=== PATIENT | female | born 1965 | race African-American/Black ===

== ENCOUNTER 2017-02-11 23:41 | Inpatient (IN) | payer MEDICARE, OTHER ==
--- NOTE | ~2017-02-11 | DS ---
Unit #: [id number] #: [id number] Patient: JOSE G JACOB [id number] [facility] [address] [place] [address] [id number] I MR#: [id number] NAME: JOSE G JACOB. ROOM: 14 Age: 51 Sex: F Admission Date: 02/11/2017 : 1965 Discharge Date: 02/20/2017 Attending Physician: Nithya Ang M.D. Primary Care Physician: Soren Mancera M.D. DISCHARGE SUMMARY IDENTIFYING DATA Ms. Jacob is a 51-year-old female, who was self-referred to the hospital. DISCHARGE DIAGNOSES Psychiatric: Bipolar disorder, most recent episode depressed, recurrent, moderate, without psychotic features. Medical: Diabetes mellitus, gastroparesis, hypertension, chronic obstructive pulmonary disease, history of deep venous thrombosis. Stressors: Moderate psychosocial stressors. HISTORY OF PRESENT ILLNESS Please see initial psychiatric evaluation for details. PAST PSYCHIATRIC HISTORY Please see initial psychiatric evaluation for details. PAST MEDICAL HISTORY Please see initial psychiatric evaluation for details. HOSPITAL COURSE The patient was admitted to adult inpatient psychiatric unit at [facility] and was oriented to the hospital environment. Routine p.r.n. medications were initiated, and she was started back on her home medications. Her medications were adjusted, and increased to 100 mg at bedtime and she was closely monitored. She was taking the medications regularly and was tolerating them fairly well, though she was having some medical complications, particularly related to breathing and was seen in medical consultation by the treatment team, followed by which, it was decided she will be sent out to the emergency room at [facility], where she did end up getting admitted and discharged from our care. DISCHARGE CONDITION Stable. PROGNOSIS Guarded. Dictated by... Nithya Ang M.D. Unit #: [id number] #: [id number] Patient: JOSE G JACOB IAA/modl TD: 03/17/2017 23:21 JOB #: [id number] DISCHARGE SUMMARY Page 1 of 1 X Afaq,Irfan A MD X DISCHARGE SUMMARY
--- NOTE | ~2017-02-11 | PN ---
Unit #: [id number] #: [id number] Patient: JOSE G VILLA [id number] [facility] [address] [place] [address] [id number] I MR#: [id number] NAME: JOSE G VILLA. ROOM: P114 Age: 51 Sex: F Admission Date: 02/11/2017 : 1965 Attending Physician: Nithya Ang M.D. Admitting Physician: Nithya Ang M.D. Primary Care Physician: Ella Alvarez PROGRESS NOTES DATE 02/15/2017 DISCUSSION The patient complains of some anxiety and poor sleep. I will increase her Seroquel dose to [address] Ang will reassume care of the patient on 02/16/2017. Dictated by... Darrian Leal M.D. CB/chilo TD: 02/16/2017 04:34 JOB #: [id number] [facility] PROGRESS NOTES Page 1 of 1 X Darrian Leal MD X PROGRESS NOTE
--- NOTE | ~2017-02-11 | HP ---
Unit #: [id number] #: [id number] Patient: JOSE G VILLA [id number] [place] [address] [id number] I MR#: [id number] NAME: JOSE G VILLA. ROOM: P114 Age: 51 Sex: F Admission Date: 02/11/2017 : 1965 Attending Physician: Nithya Ang M.D. Admitting Physician: Nithya Ang M.D. Primary Care Physician: Soren Mancera M.D. HISTORY AND PHYSICAL HISTORY OF PRESENT ILLNESS Jose G is a 51 year old admitted to [address] [place] [address] with depression and verbalizing wanting to hurt herself. She has had other admissions to this facility. PAST MEDICAL HISTORY 1. Obesity. 2. Diabetes mellitus. 3. Gastroparesis. 4. High blood pressure. 5. COPD. 6. History of recurrent DVTs. a. Status post IVC filter. b. Chronic anticoagulation. 7. History of sarcoidosis. 8. History of diastolic heart failure. PAST SURGICAL HISTORY 1. Appendectomy. 2. Hysterectomy. 3. Cholecystectomy. 4. Esophageal dilatation. 5. Gastric stimulator placed and removed. 6. IVC filter. ALLERGIES Metoclopramide, penicillin, Procardia, codeine. SOCIAL HISTORY She denies cigarettes, alcohol and illicit drug use. FAMILY HISTORY Medically noncontributory. REVIEW OF SYSTEMS CONSTITUTIONAL: No fever or chills. HEENT: Denies any sore throat, ear pain or runny nose. CARDIOVASCULAR: Denies chest pain, irregular heart rhythm or palpitations. CHEST: Denies shortness of breath or cough. No hemoptysis. GASTROINTESTINAL: Denies nausea, vomiting, diarrhea or chronic constipation. ENDOCRINE: Denies history of increased thirst or urination. No recent significant weight loss or gain. GENITOURINARY: Denies dysuria, frequency, or hematuria. Unit #: [id number] #: [id number] Patient: JOSE G VILLA SKIN: Denies any rashes. HEMATOLOGIC: Denies history of increased bleeding or bruising. MUSCULOSKELETAL: Denies any hot, swollen joints. No generalized muscle pain. NEUROLOGIC: Denies problems with vision or speech. No frequent, severe headaches. No numbness, tingling or weakness in any extremities. Denies loss of bladder or bowel control. CURRENT MEDICATIONS 1. Seroquel 100 mg q.h.s. 2. Lipitor 10 mg q.h.s. 3. Hydralazine 50 mg t.i.d. 4. Prozac 60 mg daily. 5. Emend 40 mg daily. 6. Aldactone 100 mg daily. 7. Prednisone 20 mg daily. 8. Normodyne 100 mg b.i.d. 9. Levemir 42 units b.i.d. 10. Neurontin 1200 mg t.i.d. 11. Ferrous gluconate 324 mg daily. 12. Colace 100 mg daily. 13. Depakote 500 mg b.i.d. 14. Bentyl 20 mg t.i.d. 15. Protonix 40 mg daily. 16. NovoLog 18 units with meals. 17. Proventil inhaler p.r.n. PHYSICAL EXAMINATION GENERAL: Alert, obese, in no apparent distress. VITAL SIGNS: Blood pressure 150/92, heart rate 80, respirations 16, temperature 98.6. WEIGHT: 220. HEIGHT: 5 feet 6 inches. SKIN: Warm and dry without rash or lesion. HEENT: Normocephalic. TMs not viewed. Oral and nasal passages clear. Conjunctivae clear. PERRLA. EOMs intact. NECK: Supple without lymphadenopathy or thyromegaly. HEART: Regular rate and rhythm without murmur. LUNGS: Clear. ABDOMEN: Soft, nontender. : Not done. EXTREMITIES: No evidence of cyanosis, clubbing or edema. Moves all without focal deficit. NEUROLOGICAL: Grossly within normal limits. Cranial Nerves: II: Visual abbott are intact. III, IV AND : Extraocular movements are intact. Pupils are equal, round and reactive to light. V: Facial sensation is grossly normal. VII: Facial movements and expression are normal. VIII: Auditory acuity grossly intact. IX, X: Uvula is midline. Phonation is normal. XI: Patient shrugs shoulders and turns head normally. XII: Tongue protrudes in the midline. Sensory and Motor Function: Sensory and motor sensation is grossly normal. Motor: moves all extremities well. Coordination: Gait is normal. Deep Tendon Reflexes: Intact. IMPRESSION Psychiatric admission. Unit #: [id number] #: [id number] Patient: JOSE G VILLA D RECOMMENDATIONS PSYCHIATRIC: Per psychiatrist. MEDICAL: See no contraindication to participate in facility's activities. MEDICAL PROGNOSIS Good. MEDICAL CONDITION Stable. Dictated by... Lin Pereira P.A.-C. for Ella Rios/jesus TD: 02/12/2017 22:37 JOB #: [id number] HISTORY AND PHYSICAL Page 1 of 1 X Lin Pereira X HISTORY AND PHYSICAL
--- NOTE | ~2017-02-11 | PN ---
Unit #: [id number] #: [id number] Patient: JOSE G JACOB [id number] [facility] [address] [place] [address] [id number] I MR#: [id number] NAME: JOSE G JACOB. ROOM: P114 Age: 51 Sex: F Admission Date: 02/11/2017 : 1965 Attending Physician: Nithya Ang M.D. Admitting Physician: Nithya Ang M.D. Primary Care Physician: Ella Alvarez PROGRESS NOTES DATE OF SERVICE: 02/18/2017 SUBJECTIVE Ms. Jacob is a 51-year-old female, who was seen today and chart was reviewed, and case was discussed with the staff. She has been anxious, withdrawn, depressed, and rather seclusive to herself. Meanwhile, she has been cooperative with treatment recommendations and has been taking the medications and tolerating them fairly well with no reported side effects. MENTAL STATUS EXAMINATION Middle-aged female, who was casually dressed with fair personal hygiene, appears to be in no acute distress or discomfort. She was awake and alert on interaction with intact orientation. Her mood was anxious and depressed with a congruent affect. Her speech was slow and goal directed. She denies any suicidal or homicidal ideation, and also denies any auditory or visual hallucination. Her insight and judgment remain slightly impaired. TREATMENT PLAN 1. We will continue on current medications and treatment protocol. We will monitor her response to medications and make further adjustments as needed. 2. We will continue to follow up. Dictated by... Ella Whiting/almaz TD: 02/18/2017 08:48 JOB #: [id number] Unit #: [id number] #: [id number] Patient: JOSE G JACOBERA PROGRESS NOTES Page 1 of 1 X Nithya Ang MD PROGRESS NOTE
--- NOTE | ~2017-02-11 | PN ---
Unit #: [id number] #: [id number] Patient: JOSE G JACOB [id number] [facility] [address] [place] [address] [id number] I MR#: [id number] NAME: JOSE G JACOB. ROOM: P114 Age: 51 Sex: F Admission Date: 02/11/2017 : 1965 Attending Physician: Nithya Ang M.D. Admitting Physician: Nithya Ang M.D. Primary Care Physician: Soren Mancera M.D. [facility] PROGRESS NOTES DATE OF SERVICE: 02/17/2017 SUBJECTIVE Ms. Jacob is a 51-year-old female, who was seen today and chart was reviewed and case was discussed with the staff. She has been anxious, withdrawn, and rather seclusive to herself, though appears to be calmer and cooperative with treatment recommendations and has been taking the medications and tolerating them fairly well with no reported side effects. MENTAL STATUS EXAMINATION Middle-aged female, who was casually dressed with fair personal hygiene, appears to be in no acute distress or discomfort. She was awake and alert with impaired attention and concentration. Her mood was anxious with a congruent affect. She denies any suicidal or homicidal ideation. Her insight and judgment remain slightly impaired. TREATMENT PLAN 1. We will continue her on her current medications and treatment protocol. We will monitor her response to medications and make further adjustments as needed. 2. We will continue to follow up. Dictated by... Ella Whiting/almaz TD: 02/18/2017 03:23 JOB #: [id number] [facility] PROGRESS NOTES Page 1 of 1 X Nithya Ang MD X PROGRESS NOTE
--- NOTE | ~2017-02-11 | PN ---
Unit #: [id number] #: [id number] Patient: JOSE G VILLA [id number] [facility] [address] [place] [address] [id number] I MR#: [id number] NAME: JOSE G VILLA. ROOM: P114 Age: 51 Sex: F Admission Date: 02/11/2017 : 1965 Attending Physician: Nithya Ang M.D. Admitting Physician: Nithya Ang M.D. Primary Care Physician: Ella Alvarez PROGRESS NOTES DATE 02/14/2017 DISCUSSION The patient is pleasant and calm today. She is complaining of feeling somewhat anxious and tremulous but otherwise offers no new complaints. The patient is seen in coverage for Dr. Ang today and he will re-assume her care on Thursday. Dictated by... Darrian Leal M.D. AARON/jesus TD: 02/14/2017 15:17 JOB #: [id number] [facility] PROGRESS NOTES Page 1 of 1 X Darrian Leal MD PROGRESS NOTE
--- NOTE | ~2017-02-11 | PA ---
Unit #: [id number] #: [id number] Patient: JOSE G JACOB [id number] [facility] [address] [place] [address] [id number] I MR#: [id number] NAME: JOSE G JACOB. ROOM: P110 Age: 51 Sex: F Admission Date: 02/11/2017 : 1965 Date of Assessment: 02/12/2017 Attending Physician: Nithya Ang M.D. Admitting Physician: Nithya Ang M.D. Primary Care Physician: Soren Mancera M.D. PSYCHIATRIC ASSESSMENT DATE OF SERVICE 02/12/2017. IDENTIFYING DATA Ms. Jacob is a 51-year-old, single, female, who is a resident of [place], [place] and was brought to the hospital on a 72 hours hold. CHIEF COMPLAINT "Suicidal ideations." HISTORY OF PRESENT ILLNESS Ms. Jacob is a 51-year-old female with mood disorder, who was brought to the hospital as a transfer from [facility] and she did not want to transfer and as such, 72 hours hold was initiated. The patient initially presented to the hospital, stating "I came to the hospital due to stomach problems, every time I get sick, it's depressing to me. I can't enjoy my life where the voices telling me to kill myself and I am stressed out whole lot and tired of being like that. I have been feeling suicidal and I'm hearing voices telling me to kill myself a few months. I have a plan that I would walk out in front of traffic on a busy street and I live in a busy street". The patient reports that she lives with her daughter, but she was afraid for her own apartment, she is awaiting for a vacancy and reports that her father 19 years ago, but feels like it was just yesterday and [facility], has her head down not a long ago, and does report increasing depression, anxiety, irritability, restlessness, feelings of hopelessness and helplessness, and suicidal ideations with intent and plan and as such, recommendation for inpatient level of care was made and the patient was medically cleared and then transferred to us. SUBSTANCE ABUSE HISTORY The patient denies any alcohol or drug abuse. PAST PSYCHIATRIC HISTORY The patient has a history of multiple inpatient psychiatric hospitalizations including [facility], and review of the medical records indicate that she has been diagnosed and treated for mood disorder and psychosis and is currently on a combination of Seroquel and Prozac, but does not appear to be showing a therapeutic response to medications. PAST MEDICAL HISTORY Unit #: [id number] #: [id number] Patient: JOSE G JACOB Hypertension, diabetes mellitus, neuropathy, gastroparesis, asthma, gastroesophageal reflux disease, deep venous thrombosis, history of pulmonary embolism. ALLERGIES Penicillin, Reglan, codeine, Procardia. PERSONAL AND SOCIAL HISTORY A 51-year-old female, who reports that she is single, unemployed, and lives at home with her daughter and her granddaughter and has fairly decent social support system. MENTAL STATUS EXAMINATION Middle-aged female, who was casually dressed with fair personal hygiene, appears to be in no acute distress or discomfort. She was awake and alert on interaction with intact orientation to time, place, and person. Her mood was anxious and depressed with a congruent affect. Her speech was slow and restricted in content. Her thought processes were disorganized with some looseness of associations and paranoid ideations and suicidal ideations. She also reports auditory hallucinations, which are command in nature. Her insight and judgment remain significantly impaired. DIAGNOSTIC IMPRESSION Psychiatric: Bipolar disorder, most recent episode depressed, recurrent, moderate, with psychosis. Medical: None. Stressors: Moderate psychosocial stressors. TREATMENT PLAN 1. The patient has presented with history of chronic mental illness and has been decompensating and will need inpatient hospitalization for safety and stabilization. We will start her back on her home medications. We will adjust the medications and monitor response. 2. Supportive therapy was provided to the patient. 3. Safe, structured, and nourishing environment will be provided. ESTIMATED LENGTH OF STAY 5 to 7 days. ABILITY TO HELP SELF Limited. WILLINGNESS TO HELP SELF The patient appears to be willing to help self STRENGTHS 1. Communicative. 2. Cooperative. PROBLEMS 1. Chronic dysphoric symptoms. 2. Poor social support system. DISCHARGE CRITERIA This will be contingent upon the patient's ability to show resolution of her depression and anxiety and psychosis and her ability to stay safe to herself, particularly after discharge from the hospital. Unit #: [id number] #: [id number] Patient: JOSE G JACOB Dictated by... Ella Whiting/almaz TD: 02/12/2017 07:52 JOB #: [id number] PSYCHIATRIC ASSESSMENT Page 1 of 1 X Nithya Ang MD X PSYCHIATRIC ASSESSMENT
--- NOTE | ~2017-02-11 | PN ---
Unit #: [id number] #: [id number] Patient: JOSE G JACOB [id number] [facility] [address] [place] [address] [id number] MR#: [id number] NAME: JOSE G JACOB. ROOM: P114 Age: 51 Sex: F Admission Date: 02/11/2017 : 1965 Attending Physician: Nithya Ang M.D. Admitting Physician: Nithya Ang M.D. Primary Care Physician: Ella Alvarez PROGRESS NOTES DATE OF SERVICE: 02/16/2017 SUBJECTIVE Ms. Jacob is a 51-year-old female who was seen today and chart was reviewed, and case was discussed with the staff. She has been anxious, withdrawn, and rather seclusive to herself with blunted affect, though staff reports that she is doing much better on her mood and psychosis, and has been cooperative with treatment recommendation and has not shown any agitation or aggression. MENTAL STATUS EXAMINATION Middle-aged female who was casually dressed with fair personal hygiene, appears to be in no acute distress or discomfort. She was awake and alert with impaired attention and concentration. Her mood was anxious with a congruent affect. She denies any suicidal or homicidal ideations, and also denies any auditory or visual hallucinations. Her insight and judgment remain slightly impaired. TREATMENT PLAN 1. We will continue on her current medications and treatment protocol. We will monitor her response to medications and make further adjustments as needed. 2. We will continue to follow up. Dictated by... Ella Whiting/almaz TD: 02/16/2017 11:02 JOB #: [id number] Unit #: [id number] #: [id number] Patient: JOSE G JACOB [facility] PROGRESS NOTES Page 1 of 1 X Nithya Ang MD PROGRESS NOTE
--- NOTE | ~2017-02-11 | PN ---
Unit #: [id number] #: [id number] Patient: JOSE G JACOB [id number] [facility] [address] [place] [address] [id number] I MR#: [id number] NAME: JOSE G JACOB. ROOM: P114 Age: 51 Sex: F Admission Date: 02/11/2017 : 1965 Attending Physician: Nithya Ang M.D. Admitting Physician: Nithya Ang M.D. Primary Care Physician: Ella Alvarez PROGRESS NOTES DATE 02/13/2017 DISCUSSION Ms. Jacob is a 51-year-old female who was seen today and chart was reviewed and case was discussed with the staff. She has been anxious, withdrawn and acutely psychotic with bizarre behavior and has been difficult to be redirected. Meanwhile, she has been taking medications and does not seem to be showing a therapeutic response. MENTAL STATUS EXAMINATION Middle-aged female who was casually dressed with fair personal hygiene and appears to be in no acute distress or discomfort. She was awake and alert with impaired attention and concentration. Her mood was anxious with congruent affect. Her thought processes were disorganized with some looseness of associations. Her insight and judgement remains significantly impaired. TREATMENT PLAN 1. Will continue on current treatment protocol. Will monitor her response and make further adjustments as needed. 2. Will continue to follow up. Dictated by... Nithya Ang M.D. IAA/jesus TD: 02/16/2017 08:23 JOB #: [id number] Unit #: [id number] #: [id number] Patient: JOSE G JACOB PROGRESS NOTES Page 1 of 1 X Nithya Ang MD X PROGRESS NOTE
[~2017-02-11 23:41] MED LIST: ?BP MED; ACETAMINOPHEN PO; ACETAMINOPHEN325 MG PO; ACID REDUCER20 MG PO; ADVAIR 100-501 EACH IH; ADVAIR 500-501 EACH IH; ALBUTEROL NEBULIZER INH; ALBUTEROL1.25 MG/3 INH; ALBUTEROL17 GM INH; ALBUTEROL2.5 MG/0.5 NEB; ALDACTONE PO; ALDACTONE100 MG PO; ALDACTONE25 MG PO; ALPRAZOLAM PO; ALPRAZOLAM0.5 MG PO; AMARYL PO; AMBIEN PO; AMITIZA24 MCG PO; AMITRIPTYLINE H25 MG PO; AMITRIPTYLINE100 MG PO; AMITRYPTYLINE PO; AMLODIPINE BESY10 MG PO; AMLODIPINE BESYL5 MG PO; ANEXSIA 5/325 M1 TA1 PO; APRESOLINE PO; ARNUITY ELLIP100 MCG INH; ASPIRIN PO; ASPIRINEC PO; ATIVAN PO; ATORVASTATIN CA10 MG PO; AZITHROMYCIN250 MG PO; BACITRACIN3.5 G1; BACLOFEN10 MG PO; BACTRIM DS TABL1 TA1 PO; BENTYL20 M1 PO; BENTYL20 MG PO; BENZONATATE PO; BUMETANIDE2 M1 PO; BUMEX2 MG PO; CAPOZIDE PO; CARAFATE PO; CARDURA2 MG PO; CARVEDILOL6.25 MG PO; CATAPRES-TTS-20.2 MG EXT; CATAPRES-TTS-20.2 MG PO; CATAPRES0.1 MG PO; CATAPRES0.3 MG PO; CELEXA20 MG PO; CLARITIN10 M2 PO; CLARITIN10 M3 PO; CLINDAMYCIN HC300 MG PO; CLONIDINE HCL0.1 MG PO; CLONIDINE HCL0.3 MG PO; CLONIDINE PO; CLOTRIMAZOLE15 GM TP; COLACE PO; COMPAZINE5 M1 RC; COREG6.25 MG PO; COUMADIN PO; COUMADIN10 MG PO; COUMADIN4 MG PO; COUMADIN5 MG PO; DELTASONE20 MG PO; DEPAKOTE SPRIN125 M1 PO; DEPAKOTE SPRIN125 MG PO; DICYCLOMINE HCL20 MG PO; DIFLUCAN100 MG PO; DISCONTINUED MED; DOCUSATE SODIU100 MG PO; DOXEPIN HCL25 MG PO; DULCOLAX10 MG/SUPP PR; DYNACIRC PO; ELIQUIS5 MG PO; ERYC250 MG PO; ERYTHROMYCIN PO; ERYTHROMYCIN250 MG PO; FAMOTIDINE PO; FEROSUL325 ( 651 PO; FERRO-TIME325 MG PO; FERROUS GLUCON324 MG PO; FERROUS SULFATE PO; FLAGYL PO; FLEXERIL PO; FLEXERIL10 M1 PO; FLEXERIL10 MG PO; FLONASE 0.05% N16 GM; FLONASE16 GM; FLUCONAZOLE100 M1 PO; FLUOXETINE HCL20 M1 PO; FLUTICASONE INH; GABAPENTIN400 MG PO; GLUCOPHAGE500 M1 PO; HCTZ PO; HUMALOG MIX 50/53 M1 SUBQ; HUMALOG100 U/ML SUBQ; HUMULIN 70/30 V10 ML; HUMULIN 70/30 V10 ML IJ; HUMULIN 70/30 V10 ML SUBQ; HUMULIN R100 U/ML SUBQ; HYDRALAZINE HCL50 MG PO; HYDROCODON-ACE1 EACH PO; HYDROXYZINE HCL10 MG PO; IBUPROFEN PO; IRON SUPPLEMENT1 TAB PO; ISOSORBIDE MONO30 M1 PO; K-DUR10 MEQ PO; K-DUR20 ME1 PO; K-DUR20 ME2 PO; K-LOR HOSPITAL20 ME1 PO; K-SOL20 MEQ/15 PO; KCL PO; KLONOPIN PO; KLONOPIN0.5 M1 PO; KLONOPIN0.5 MG PO; LABETALOL HCL200 MG PO; LABETALOL HCL300 MG PO; LACTULOSE10 G/15 M2 PO; LAMICTAL PO; LANTUS SOLOSTAR3 ML SQ; LANTUS100 U/M1 SUBQ; LANTUS100 U/ML INJ; LANTUS100 U/ML SQ; LANTUS100 U/ML SUBQ; LANTUS100 UNITS/ SUBQ; LASIX20 MG PO; LEVAQUIN PO; LEVAQUIN750 M1 PO; LEVEMIR SUBQ; LEVEMIR100 U/ML SQ; LEVEMIR100 U/ML SUBQ; LEVEMIR100 UNITS/ SQ; LEVEMIR100 UNITS/ SUBQ; LEVIMIR SUBQ; LINZESS290 MCG PO; LIPITOR PO; LISINOPRIL PO; LISINOPRIL20 MG PO; LOPID600 MG PO; LOPRESSOR PO; LORTAB 10-5001 EACH PO; LORTAB 5-325 M1 EACH PO; LORTAB 5/500 TA1 TA1 PO; LORTAB 7.51 TAB DOB; LOSARTAN POTAS100 MG PO; LOSARTAN POTASS50 MG PO; LOTENSIN PO; LOTENSIN40 MG; LOVAZA1 G PO; LOVENOX SUBQ; LOVENOX100 MG/ML INJ; LOVENOX80 MG/0.8 INJ; METOPROLOL SUCC50 MG PO; METOPROLOL TAR25 MG PO; METOPROLOL TART25 MG PO; MINOXIDIL2.5 MG PO; MIRALAX119 GM PO; MIRALAX17 G2 PO; MIRALAX17 GM PO; MOBIC PO; NEURONTIN PO; NITROGLYCERIN0.4 MG SL; NITROGLYGERIN0.4 MG SL; NORCO1 TAB 10/3 PO; NORVASC; NORVASC PO; NORVASC10 MG PO; NOVOLIN R100 UNITS/ INJ; NOVOLIN R100 UNITS/ SQ; NOVOLOG FL100 UNIT/1 SUBQ; NOVOLOG100 U/ML SQ; NOVOLOG100 U/ML SUBQ; NOVOLOG100 UNITS/ SUBQ; NOVOLOG7030 SUBQ; OLANZAPINE5 MG PO; OMEPRAZOLE20 M1 PO; OMEPRAZOLE40 MG PO; PANTOPRAZOLE SO40 MG PO; PAROXETINE HCL40 M1 PO; PERCOCET PO; PHENERGAN PO; PHENERGAN SUPP25 M1 PR; PHENERGAN SUPP25 MG; PHENERGAN25 M1; PHENERGAN25 M1 DOB; PHENERGAN25 M1 PO; POTASSIUM CHLO10 ME1 PO; POTASSIUM CHLO20 ME1; POTASSIUM20 MEQ/11 PO; POTASSIUM20 MEQ/15 PO; PREDNISONE PO; PREDNISONE10 MG PO; PRILOSEC PO; PRILOSEC20 M1 PO; PRILOSEC20 MG DOB; PRILOSEC40 MG PO; PRINIVIL20 M1 PO; PROAIR HFA8.5 GM IH; PROTONIX PO; PROVENTIL17 GM IH; PROZAC; PROZAC PO; PROZAC40 MG PO; REGLAN PO; REMERON15 MG PO; ROBAXIN500 MG PO; SARAFEM20 M1 PO; SARAFEM20 MG PO; SENNA CONCENTR8.6 MG PO; SENNA PO; SEROQUEL; SEROQUEL PO; SEROQUEL XR150 MG PO; SEROQUEL XR200 MG PO; SEROQUEL25 MG PO; SEROQUEL400 MG PO; STARLIX PO; SYMBICORT INH; TESSALON PERLE100 M1 PO; TOPROL XL 50 MG50 MG PO; TOPROL XL50 MG PO; TRAMADOL HCL50 M2 PO; TRIAMTERENE-HC1 EAC1 PO; TRIAMTERENE-HCT1 TA8 PO; UNK CHOLESTEROL MED; VICODIN 5/1 TAB 5/50 PO; VICODIN 5/500 T1 TAB PO; VOLTAREN50 MG PO; VOLTAREN75 MG PO; WARFARIN SODIUM4 M1 PO; XARELTO20 MG PO; XERELTO PO; ZESTRIL10 M1 PO; ZITHROMAX PO; ZOCOR PO; ZOFRAN PO; ZOFRAN8 MG SL; ZYPREXA PO; [UNRECOGNIZED DRUG - OTHER]; [UNRECOGNIZED DRUG - OTHER] PO; [UNRECOGNIZED DRUG - REMARK]
[2017-02-20] MEDS ORDERED: SEROQUEL100 MG PO (03:54)
[2017-02-20] MEDS ORDERED: PROZAC PO (03:55)
[2017-02-20] MEDS ORDERED: LIPITOR PO (03:55)
[2017-02-20] MEDS ORDERED: HYDRALAZINE HCL50 MG PO (03:55)
[2017-02-20] MEDS ORDERED: ALDACTONE100 MG PO (03:55)
[2017-02-20] MEDS ORDERED: EMEND40 MG PO (03:55)
[2017-02-20] MEDS ORDERED: DELTASONE20 MG PO (03:56)
[2017-02-20] MEDS ORDERED: NORMODYNE100 M1 PO (03:56)
[2017-02-20] MEDS ORDERED: DOCUSATE SODIU100 MG PO (03:57)
[2017-02-20] MEDS ORDERED: LEVEMIR100 UNITS/ SUBQ (03:57)
[2017-02-20] MEDS ORDERED: NEURONTIN PO (03:57)
[2017-02-20] MEDS ORDERED: FERROUS GLUCON324 M2 PO (03:57)
[2017-02-20] MEDS ORDERED: NOVOLOG100 U/ML SUBQ (03:58)
[2017-02-20] MEDS ORDERED: DICYCLOMINE HCL20 MG PO (03:58)
[2017-02-20] MEDS ORDERED: PROTONIX PO (03:58)
[2017-02-20] MEDS ORDERED: DEPAKOTE PO (03:58)
[2017-02-20] MEDS ORDERED: ALBUTEROL17 GM INH (03:59)
== END 2017-02-20 06:38 | disposition other institution (70) | DRG 885 ==
LOC: P1S 23:41 → POF 02-12 09:46 → P1S 02-12 09:47
DX: F31.32 Bipolar disorder, current episode depressed, moderate (principal); R45.851 Suicidal ideations; E11.9 Type 2 diabetes mellitus without complications; F29 Unspecified psychosis not due to a substance or known physiological condition; F41.9 Anxiety disorder, unspecified; E66.9 Obesity, unspecified; I10 Essential (primary) hypertension; Z86.718 Personal history of other venous thrombosis and embolism; Z79.01 Long term (current) use of anticoagulants; Z88.0 Allergy status to penicillin; Z88.8 Allergy status to other drugs, medicaments and biological substances; Z88.5 Allergy status to narcotic agent
CPT/HCPCS: 82947; J1200; J1630; J3486; J8501

== ENCOUNTER 2017-02-20 05:28 | Inpatient (IN) | payer MEDICARE, OTHER ==
--- NOTE | ~2017-02-20 | FU ---
[facility] Nutrition Therapy DATE: 03/04/17 Patient: JOSE G VILLA Physician: CAMERON Address: [address] [place] [address] Room/Bed: [address] [place] [address], Zip: [place] [address] Admit Date: 02/20/17 Date of : [birth year] Height: 5 6 Weight: 199 90.5 NUTRITION MONITORING/FOLLOW-UP: Reason: Follow up Anthropometrics: Wt: 90.5 kg Labs: Gluc 303 BUN 36 Creat 1.6 Ca++ 8.0 Accuchecks 275-292 GFR 42.5 Meds: Novolog, lipitor, protonix, zofran, solu-medrol, levemir, MgS04, KCl I&O's: 3470/1535, last BM 03/01 Skin: Reviewed, no changes noted Edema: none noted Diet: Gastroparesis/ slick/ 6 small (per MENTALLY IMPAIRED TEACHER) Assessment: Chart reviewed, events noted. Pt has been transfered to , and is no longer receiving enteral nutrition. Pt has been ordered the above noted diet per MENTALLY IMPAIRED TEACHER evaluation. Of note, the pt is not talking to anyone and not eating per RN report/ notes in chart. It seems that this is due to psychological issues. Pt is not taking her psych meds per RN report. Pt is not appropriate for diet interview/ education at this time. Psych has been consulted. Please see recommendations below. Nutrition diagnoses remain with updated evidence. Dx: Inadequate oral intake RT AMS AEB RN report, MD note in chart, pt not taking meds or nutrition- ACTIVE Stage II obese RT possibly lifestyle AEB BMI 37-40- ACTIVE Intervention: 1. Diet per MENTALLY IMPAIRED TEACHER Monitoring, Evaluation and Goals: 1. EN- NO LONGER APPLICABLE 2. Oral intake; tolerate >50-75% of meals- NOT MET 3. Labs; WNL- NOT MET 4. Weight; promote gradual weight loss- IN PROGRESS Recommendations: 1. Agree with psych consult, as it seems the pt's psychological issues are causing her not [facility] Nutrition Therapy DATE: 03/04/17 Patient: JOSE G VILLA Physician: CAMERON Address: [address] [place] [address] Room/Bed: [address] [place] [address], Zip: [place] [address] Admit Date: 02/20/17 Date of : [birth year] Height: 5 6 Weight: 199 90.5 to eat. 2. Encourage PO intake of meals as appropriate. 3. If the pt starts to take PO and is consuming at least 50% of meals, consider adding consistent carbohydrate/ low sodium diet restrictions due to her PMH. Add glucerna supplements as needed. 4. If the pt's intake does not improve, consider obtaining placing a DHT and starting enteral nutrition with Glucerna 1.5. If ordered by MD, start Glucerna 1.5 @ 25 mL/hr. Incresae by 10 mL q 4 hrs as tolerated to goal of 55 mL/hr. This would provide: 1980 kcals/ 109 grams protein/ 1003 mL free H20 Status: Pt is at moderate nutritional risk. RD will follow up per protocol. Respectfully, CLAUDIA OCHOA RD, LD Food and Nutritional Services [facility] cc: client file
--- NOTE | ~2017-02-20 | CR72 ---
[facility] A Service of [facility] & [facility] RADIOLOGY TEXT RESULTS PATIENT: JOSE G VILLA LOCATION: [address] : [birth year] UNIT #: [id number] AGE: [address]: Radha Zepeda MD SEX: F ORDER DR: [id number] [facility] [address] [place], [place] [address] [id number] MR#: [id number] Acc #: [id number] NAME: JOSE G VILLA. : 1965 SEX: F STUDY DATE/TIME: 02/21/2017 8:15 UNIT: [facility] ROOM: [facility] STUDY DESCRIPTION: CR Chest Single View Portable Attending Physician: Radha Zepeda M.D. Ordering Physician: Angela Camarillo M.D. Primary Care Physician: Soren Mancera M.D. MEDICAL IMAGING REPORT This report is preliminary unless electronic signature is present EXAM Portable chest 02/21 INDICATIONS Line placement today. Shortness of air. FINDINGS AP portable chest compared with earlier this morning. New left IJ line tip is in the SVC. Right IJ line tip remains in the SVC as well. ET tube mid trachea. No pneumothorax is seen. Heart size stable. Bilateral infiltrates with elevation of the right hemidiaphragm also stable. Dictated by... Jimi Lutz Jr., M.D. THIS IS AN ELECTRONICALLY VERIFIED REPORT Jimi Lutz Jr., M.D. at 02/21/2017 10:01 AM Michael TD: 02/21/2017 09:26 JOB #: [id number] MEDICAL IMAGING REPORT Page 1 of 1 COPY
--- NOTE | ~2017-02-20 | CT71 ---
[facility] A Service of [facility] & [facility] RADIOLOGY TEXT RESULTS PATIENT: JOSE G VILLA LOCATION: [place] [address] : [birth year] UNIT #: [id number] AGE: [address]: Radha Zepeda MD SEX: F ORDER DR: [id number] [facility] [address] [place], [place] [address] [id number] I MR#: [id number] Acc #: [id number] NAME: JOSE G VILLA. : 1965 SEX: F STUDY DATE/TIME: 03/02/2017 11:16 UNIT: [facility] ROOM: [facility] STUDY DESCRIPTION: CT Head Wo Contrast Attending Physician: Rahda Zepeda M.D. Ordering Physician: Radha Zepeda M.D. Primary Care Physician: Soren Mancera M.D. MEDICAL IMAGING REPORT This report is preliminary unless electronic signature is present EXAM CT head, 03/02/2017. HISTORY Confusion, short of air, mental status changes. Hearing voices. Depression. CHF, hypertension, diabetes. TECHNIQUE CT head performed skull base through vertex without intravenous contrast. This CT exam was performed with one or more of the following radiation dose reduction techniques: automatic exposure control, adjustment of mA and/or kV according to patient size, and iterative reconstruction. FINDINGS The brainstem is unremarkable. Cerebellum and cerebral hemispheres show normal james matter-white matter differentiation. No hemorrhage. No evidence of acute cortical ischemia. Midline structures are nondisplaced. The ventricles, cisterns, and sulci show mild generalized enlargement consistent with mild generalized atrophy. No intra or extraaxial mass effect or abnormal intracranial fluid collection. There are some scattered cavernous carotid arterial calcifications. The intraorbital soft tissues are unremarkable. Near-complete opacification of frontal sinuses more pronounced than on prior study. Near-complete opacification of the ethmoid air cells. Air-fluid level right maxillary sinus. Opacification of multiple bilateral mastoid air cells with multiple bilateral mastoid air fluid levels. IMPRESSION 1. No acute abnormalities seen in brain. If patient has ongoing neurologic symptoms, consider follow up imaging, preferably with MRI if patient is candidate. 2. Pansinusitis. Near-complete opacification of frontal sinuses and STS. [facility] A Service of [facility] & [facility] RADIOLOGY TEXT RESULTS PATIENT: JOSE G VILLA LOCATION: [address] : [birth year] UNIT #: [id number] AGE: [address]: Radha Zepeda MD SEX: F ORDER DR: ethmoid air cells. Air-fluid levels in bilateral ethmoid air cells. Air-fluid level left maxillary sinus. Mucosal thickening right maxillary sinus. Air-fluid level in the sphenoid sinus. In addition, there are multiple air-fluid levels in the mastoid air cells bilaterally suggesting components of acute bilateral mastoiditis, as well. Sinus disease has progressed in the interval from 02/27/2017. Dictated by... Tripp Martin M.D. THIS IS AN ELECTRONICALLY VERIFIED REPORT Tripp Martin M.D. at 03/03/2017 10:29 AM VANNESSA/damian TD: 03/02/2017 12:19 JOB #: [id number] MEDICAL IMAGING REPORT Page 1 of 1 COPY
--- NOTE | ~2017-02-20 | EKG ---
PATIENT: JOSE G VILLA UNIT #: [id number] Ventricular Rate: 88 BPM Atrial Rate: 88 BPM P-R Interval: 148 ms QRS Duration: 80 ms Q-T Interval: 358 ms QTC Calculation(Bezet): 433 ms P [place]: 65 degrees Calculated R [place]: 32 degrees Calculated T [place]: 34 degrees Diagnosis Line: Normal sinus rhythm Diagnosis Line: Nonspecific ST abnormality Diagnosis Line: Abnormal ECG Diagnosis Line: When compared with ECG of 22-FEB-2017 10:10, Diagnosis Line: No significant change was found Diagnosis Line: Confirmed by RUBIA BOUCEHR MD ([id number]) on Diagnosis Line: 02/23/2017 7:17:13 AM INTERPRETING MD: NATALIA
--- NOTE | ~2017-02-20 | CO ---
Unit #: [id number] #: [id number] Patient: JOSE G JACOB [id number] [facility] [address] [place], [place] [address] [id number] I MR#: [id number] NAME: JOSE G JACOB. ROOM: 315 Age: 51 Sex: F Admission Date: 02/20/2017 : 1965 Attending Physician: Radha Zepeda M.D. Primary Care Physician: Soren Mancera M.D. Consultation Date: 03/09/2017 CONSULTATION REPORT REASON FOR CONSULTATION Followup. DISCUSSION Ms. Jose G Jacob is a 51-year-old female, seen in room 315, bed 1 on 03/09/2017 at [facility]. The patient dressed in hospital attire, standing. The patient's family was at the bedside. The patient was able to identify every family member, attentive and cooperative. Affect was sad and dysphoric, but able to smile. The patient reports feeling better. Denied any current suicidal or homicidal ideation. Denied any psychotic symptom. REVIEW OF SYSTEMS Complete review of systems unremarkable. MENTAL STATUS EXAMINATION Vital signs; temperature 98.7, pulse 87, respiratory rate 17, blood pressure 126/81, oxygen saturation 98%. General appearance, the patient dressed in hospital attire, pleasant and cooperative. Attention span and concentration, fair. Speech, slow in volume, but regular rate. Oriented in self, place and person. Mood and affect were sad, dysphoric, flat. Thought process, circumstantial. Thought content, the patient denied any thoughts of harming self or others. Denied any hallucination, but mood sad, dysphoric. Recent and remote memory, fair. Language, fair. Fund of knowledge, fair. Insight and judgment, fair to slightly impaired. DIAGNOSES Psychiatric: Bipolar mood disorder, not otherwise specified, F31.89; delirium, F05, resolved. ASSESSMENT/PLAN 1. Supportive psychotherapy and psychoeducation provided to the patient. 2. Educated about benefits and side effects of medication and course and prognosis of illness. 3. Advised to continue with current medication. If needed, consider further adjustment of medication. If the patient is medically stable, the patient can safely be discharged home and continue with current medication and advised to follow up with outpatient clinic. Upon discharge, the patient was also given crisis line #[phone]. Dictated by... Paul Roberts M.D. Unit #: [id number] #: [id number] Patient: JOSE G JACOB SZC/modl TD: 03/10/2017 01:58 JOB #: [id number] CONSULTATION REPORT Page 1 of 1 X Paul Roberts MD X CONSULTATION REPORT
--- NOTE | ~2017-02-20 | CO ---
Unit #: [id number] #: [id number] Patient: JOSE G JACOB [id number] [address] [address] [id number] I MR#: [id number] NAME: JOSE G JACOB ROOM: [address] Age: 51 Sex: F Admission Date: 02/20/2017 : 1965 Attending Physician: Radha Zepeda M.D. Primary Care Physician: Soren Mancera M.D. Consultation Date: 02/20/2017 CONSULTATION REPORT REASON FOR CONSULTATION The patient (1)__:11 and the patient is consulted again. Ms. Jacob is a 51-year-old female who we have seen in the past. She has had intermittent acute renal failure in the past with probable chronic kidney disease. Baseline creatinine 1.5 to 1.7 plus or minus. Chronic renal insufficiency is felt probably related to diabetes, plus/minus intermittent acute with some scarring. She presented to the hospital from [facility] where she was for eight days. She presented with increased shortness of breath and some chest pain with occasional cough, nonproductive. She was admitted for right middle lobe pneumonia. She was noted upon presentation here to have a BUN and creatinine of 29 and 1.8. She was started on a septic protocol and is receiving fluids with that. She is alert, although does appear to be short of breath. She denies any nausea, vomiting, diarrhea. She denies any nonsteroidal use. HISTORY OF PRESENT ILLNESS 1. History of chronic kidney disease stage 3 with again baseline creatinine 1.5 plus/minus. 2. History of neurogenic bladder. 3. History of frequent urinary tract infections. 4. History of acute renal failure with proteinuria in the past, as mentioned above. 5. History of diabetes mellitus since early 1999. 6. History of hypertension. 7. Sarcoidosis. 8. History of gastroparesis. 9. History of chronic obstructive pulmonary disease. 10. History of asthma. 11. History of DVT/PE/status post filter. 12. History of bipolar disorder. 13. History of esophageal stricture, status post dilatation. 14. History of peptic ulcer disease. 15. History of peripheral neuropathy. PAST MEDICAL HISTORY 1. Status post hysterectomy. 2. Appendectomy. 3. Cholecystectomy. SOCIAL HISTORY The patient does not smoke or drink. FAMILY HISTORY She had a brother who and was on dialysis with diabetes. The cause of Unit #: [id number] #: [id number] Patient: JOSE G JACOB his renal failure apparently was drug abuse. ALLERGIES Reglan, penicillin, Procardia and codeine. CURRENT MEDICATIONS 1. Eliquis. 2. Depakote. 3. Doxepin. 4. Claritin. 5. Prozac. 6. Lopid. 7. Labetalol. 8. Norvasc. 9. Hydralazine. 10. Losartan. 11. Insulin. 12. Iron. 13. Aldactone. 14. Potassium. 15. Imdur. REVIEW OF SYSTEMS As mentioned in history of present illness. She has had some chills. She has had no dizziness or visual problems. She denies any severe abdominal pain, nausea, vomiting, diarrhea. No frequent urinary symptoms. No lower extremity swelling. No recent seizures or strokes. PHYSICAL EXAMINATION VITALS: T-max is 102.5, pulse 108 to 139, blood pressure 91 to 151 to 50s to 80s. HEENT: Normocephalic, atraumatic. Pupils are equal, round and reactive to light. Extraocular muscles are intact. Hearing appears to be normal. Mouth is clear. No erythema. No exudate. NECK: Supple. No adenopathy. CARDIAC: She has a regular rate and rhythm without a rub, but tachycardic. LUNGS: Bilateral rhonchi. ABDOMEN: Overweight. Bowel sounds positive, nontender and soft. EXTREMITIES: She has some trace bilateral lower extremity swelling. SKIN: No rashes. JOINTS: No joint pain or joint swelling. NEURO: Appears to be intact motor and sensory grossly. : Deferred. DIAGNOSTIC STUDIES IMAGING: Chest x-ray here showed right mid lung infiltrate. LABORATORY: Sodium 144, potassium 4.5, chloride 102, bicarb 25, BUN 29, creatinine 1.8, glucose 172, calcium 9.1, albumin 3.4. In December she had a creatinine of 2.0 and 2.1, November 1.5 was the lowest. Lactic acid today is 2.0. Hemoglobin is 9.8, white blood cell count 9,300, platelets 22,000. In 2015 she had a protein to creatinine ratio of only about 250. ASSESSMENT 1. Chronic kidney disease, stage 3. The patient is with a history of some abnormal kidney function in the past, as mentioned above. Creatinine is a little bit worse than what her true baseline is, Unit #: [id number] #: [id number] Patient: JOSE G JACOB although better than what it was in December. Certainly, she is short of breathy and I assume it is all related to pneumonia. She is on sepsis protocol for now. Will certainly, once her blood pressure gets better will determine fluid status and adjust her IV fluids. Certainly will check a bladder scan for postvoid residual and if it is elevated then we will place a Matias catheter. Will check a urinalysis (2) , urine sodium. Will check a full set of electrolytes in the a.m. and will continue to follow. 2. Pneumonia. 3. Bipolar disorder. 4. Diabetes mellitus. 5. Neurogenic bladder. 6. History of hypertension. Certainly hold blood pressure medicines and re-add on depending on her blood pressure. Dictated by.Tere Maciel M.D. LOUIS/salbador TD: 02/20/2017 12:22 JOB #: [id number] CONSULTATION REPORT Page 1 of 1 X Tahira Maciel MD X CONSULTATION REPORT
--- NOTE | ~2017-02-20 | CR72 ---
[facility] A Service of [facility] & [facility] RADIOLOGY TEXT RESULTS PATIENT: JOSE G VILLA LOCATION: [address] : [birth year] UNIT #: [id number] AGE: [address]: Radha Zepeda MD SEX: F ORDER DR: [id number] [facility] [address] [place], [place] [address] [id number] I MR#: [id number] Acc #: [id number] NAME: JOSE G VILLA. : 1965 SEX: F STUDY DATE/TIME: 03/02/2017 4:39 UNIT: [facility] ROOM: [facility] STUDY DESCRIPTION: CR Chest Single View Portable Attending Physician: Radha Zepeda M.D. Ordering Physician: Angela Camarillo M.D. Primary Care Physician: Soren Mancera M.D. MEDICAL IMAGING REPORT This report is preliminary unless electronic signature is present EXAM AP portable chest 03/02/2017 04:39 HISTORY Fever, confusion, status post ventricular tachycardia with arrest and pneumonia. Symptoms began 02/28/2017. COMPARISON AP portable chest 03/01/2017 FINDINGS Somewhat patchy alveolar changes are seen throughout both lungs, greatest in the periphery, without significant change. Stable elevation right hemidiaphragm. Stable heart size. Right IJ and left IJ approach central lines, unchanged. NG tube extends below the diaphragm with tip not included in field of view. Cholecystectomy. No visible pneumothorax. IMPRESSION 1. Patchy alveolar disease changes throughout both lungs thought most likely to represent multifocal pneumonia, without significant change from one day the prior. 2. NG tube has been placed extending below the level of the diaphragm, tip not included in field of view. 3. No visible pneumothorax. Dictated by... Susie Mary M.D. THIS IS AN ELECTRONICALLY VERIFIED REPORT Susie Mary M.D. at 03/03/2017 9:59 PM REMI/derrick TD: 03/02/2017 08:33 [facility] A Service of [facility] & [facility] RADIOLOGY TEXT RESULTS PATIENT: JOSE G VILLA LOCATION: [address] : [birth year] UNIT #: [id number] AGE: [address]: Radha Zepeda MD SEX: F ORDER DR: JOB #: [id number] MEDICAL IMAGING REPORT Page 1 of 1 COPY
--- NOTE | ~2017-02-20 | OR ---
Unit #: [id number] #: [id number] Patient: JOSE G VILLA [id number] [address] [address] [id number] I MR#: [id number] NAME: JOSE G VILLA ROOM: [facility] Date of Procedure: 02/21/2017 Admission Date: 02/20/2017 Surgeon: Angela Camarillo M.D. : 1965 Attending Physician: Radha Zepeda M.D. Primary Care Physician: Soren Mancera M.D. PROCEDURE OPERATIVE NOTE PREPROCEDURE DIAGNOSIS Pneumonia. POSTPROCEDURE DIAGNOSIS Pneumonia. PROCEDURE PERFORMED Bronchoscopy. INDICATION Respiratory failure, pneumonia. DETAILS OF THE PROCEDURE After taking consent from the patient's family explaining the risks and benefits, the patient was placed in a proper position. Bronchoscope introduced through the endotracheal tube, which was sitting well above the jake. We examined the right upper, right middle, right lower lobe, left upper lobe, lingula and left lower lobe. There was thick mucoid secretion in both lungs, which was therapeutically suction. Then, we did a bronchoalveolar lavage in the right upper lobe area with 60 mL saline in and 20 mL back. The patient tolerated the procedure very well. No complication happened. Dictated by... Ella Garcia TD: 02/21/2017 18:09 JOB #: [id number] PROCEDURE OPERATIVE NOTE Page 1 of 1 X Angela Camarillo MD X PROCEDURE OPERATIVE NOTE
--- NOTE | ~2017-02-20 | CO ---
Unit #: [id number] #: [id number] Patient: JOSE G JACOB [id number] [facility] [address] [place], [place] [address] [id number] I MR#: [id number] NAME: JOSE G JACOB. ROOM: [facility] Age: 51 Sex: F Admission Date: 02/20/2017 : 1965 Attending Physician: Radha Zepeda M.D. Primary Care Physician: Soren Mancera M.D. Consultation Date: 02/27/2017 CONSULTATION REPORT REASON FOR CONSULTATION Followup. DISCUSSION Ms. Jose G Jacob is a 51-year-old female, seen in CCU-2, bed 4 on 02/27/2017 at [facility]. The patient was seen on 02/27/2017 at [facility]. The patient was sitting in chair, receiving oxygen through the nasal cannula, has an IV. The patient still having problem with the confusion. Oriented in self. Mood and affect were sad, dysphoric, flat. The patient still somewhat sleepy and drowsy. The patient was able to recognize her daughter, who was in the room. The patient's vital signs; temperature 99.5, pulse 90, respirations 22, blood pressure 126/77, oxygen saturation 100%. The patient did not show any aggression or agitation. REVIEW OF SYSTEMS Complete review of systems is unremarkable except as mentioned above. MENTAL STATUS EXAMINATION General appearance, the patient dressed in hospital attire. Attention span and concentration, poor. Speech, slow. Orientation in self. Mood and affect were flat Thought process, circumstantial. Thought content, guarded and paranoid, but denied any thoughts of harming self or others. Recent and remote memory, poor. Language, poor. Fund of knowledge, impaired. Insight and judgment, impaired. DIAGNOSES Delirium, F05; bipolar mood disorder, not otherwise specified, F31.89. ASSESSMENT AND PLAN 1. Supportive psychotherapy and psychoeducation provided to patient and family, but the patient was not able to comprehend at this time. 2. Recommending at this time to continue with current psychotropic medication Prozac. At this time, avoid any other psychotropic medication as the patient is still having above-mentioned symptom. We will consider at a later date such as Seroquel or haloperidol. Please feel free to call if any questions, telephone #[phone]. Dictated by... Ella Payne/almaz Unit #: [id number] #: [id number] Patient: JOSE G JACOB TD: 02/27/2017 23:43 JOB #: [id number] CONSULTATION REPORT Page 1 of 1 X Paul Roberts MD X CONSULTATION REPORT
--- NOTE | ~2017-02-20 | CR72 ---
[facility] A Service of [facility] & [facility] RADIOLOGY TEXT RESULTS PATIENT: JOSE G VILLA LOCATION: [facility] 315-01 : [birth year] UNIT #: [id number] AGE: [address]: Radha Zepeda MD SEX: F ORDER DR: [id number] [facility] [address] [place], [place] [address] [id number] I MR#: [id number] Acc #: [id number] NAME: JOSE G VILLA. : 1965 SEX: F STUDY DATE/TIME: 02/27/2017 4:07 UNIT: [facility] ROOM: [facility] STUDY DESCRIPTION: CR Chest Single View Portable Attending Physician: Radha Zepeda M.D. Ordering Physician: Angela Camarillo M.D. Primary Care Physician: Soren Mancera M.D. MEDICAL IMAGING REPORT This report is preliminary unless electronic signature is present EXAM Chest x-ray 02/27/2017 HISTORY Short of air. CHF/pneumonia. Follow up inpatient cardiopulmonary status. TECHNIQUE AP portable chest x-ray. FINDINGS There has been no change since yesterday. Keaf-yu-akzsfxna diffuse interstitial edema or infiltrate throughout both lungs. Elevation right hemidiaphragm with right basilar atelectasis. No visible pneumothorax or pleural effusion. Bilateral IJ venous catheters remain in good position. NG tube below the diaphragm. IMPRESSION Stable portable chest x-ray, unchanged since yesterday. Dictated by... Go Dozier M.D. THIS IS AN ELECTRONICALLY VERIFIED REPORT Go Dozier M.D. at 03/04/2017 9:15 AM DAVID/derrick TD: 02/27/2017 06:29 JOB #: [id number] MEDICAL IMAGING REPORT Page 1 of 1 COPY
--- NOTE | ~2017-02-20 | CR72 ---
[facility] A Service of [facility] & [facility] RADIOLOGY TEXT RESULTS PATIENT: JOSE G VILLA LOCATION: [facility]-04 : [birth year] UNIT #: [id number] AGE: [address]: Radha Zepeda MD SEX: F ORDER DR: [id number] [facility] [address] [place], [place] [address] [id number] I MR#: [id number] Acc #: [id number] NAME: JOSE G VILLA. : 1965 SEX: F STUDY DATE/TIME: 02/20/2017 15:56 UNIT: [facility] ROOM: 14123 STUDY DESCRIPTION: CR Chest Single View Portable Attending Physician: Radha Zepeda M.D. Ordering Physician: Kaylin Amaya M.D. Primary Care Physician: Soren Mancera M.D. MEDICAL IMAGING REPORT This report is preliminary unless electronic signature is present EXAM Portable chest. INDICATIONS Endotracheal intubation today. COMPARISON Compared with earlier today. FINDINGS Interval placement of endotracheal tube with tip in satisfactory position above the jake. Stable right IJ central venous catheter. Worsening atelectasis or infiltrate within the left base. Remaining infiltrates are unchanged. Heart size stable. IMPRESSION 1. Endotracheal tube tip in satisfactory position. 2. Worsening atelectasis or infiltrate within the left base. Otherwise, no significant change in the lungs. Dictated by... Gene Rodgers M.D. THIS IS AN ELECTRONICALLY VERIFIED REPORT Gene Rodgers M.D. at 02/21/2017 9:37 AM ANGEL/adrian TD: 02/20/2017 18:25 JOB #: [id number] MEDICAL IMAGING REPORT Page 1 of 1 COPY
--- NOTE | ~2017-02-20 | DS ---
Unit #: [id number] #: [id number] Patient: JOSE G VILLA [id number] [address] [place], [place] [address] [id number] I MR#: [id number] NAME: JOSE G VILLA. ROOM: 315 Age: 51 Sex: F Admission Date: 02/20/2017 : 1965 Discharge Date: 03/09/2017 Attending Physician: Radha Zepeda M.D. DISCHARGE SUMMARY REASON FOR ADMISSION Dyspnea/congestion x7 days. HISTORY OF PRESENT ILLNESS/HOSPITAL COURSE Patient is a 51-year-old female, with underlying history of diabetes, gastroparesis, peripheral neuropathy, chronic kidney disease, neurogenic bladder, anemia, hypertension, COPD, chronic diastolic heart failure, prior history of DVT status post IVC filter, bipolar and sarcoidosis, who was initially transferred from [facility] secondary to visual and auditory hallucinations secondary to above. While she was admitted, she initially was placed on telemetry floor. Her initial chest x-ray had revealed patchy right mid lung infiltrate. She was treated for acute hypoxic respiratory failure. In regard to the same, consultation was placed to pulmonary service. Initial part of hospital stay, unfortunately, the patient acutely decompensated. She became acutely hypoxic. Clinical picture was consistent with ARDS/septic shock, and subsequently she was transferred to the ICU for ongoing care. In regard to her respiratory status and from a pulmonary standpoint, Dr. Camarillo and associates continued to follow the patient through her ICU course. Gradually, she was extubated. She was placed back on O2 via nasal cannula, and subsequently, she is currently breathing on room air. It was felt likely that she went into ARDS versus septic shock, which caused her acute hypoxic respiratory failure. Since that time, her IV Solu-Medrol, aerosols, antibiotics have all been discontinued, and she has otherwise done well. Her initial troponin levels were also elevated, consistent with an NSTEMI, and she was initially on a heparin drip. Her hemoglobin did start decreasing; eventually her hemoglobin was less than 6. Her heparin drip was subsequently discontinued. We transfused her and placed consultation to Dr. Styles of gastroenterology service. Dr. Styles performed an upper GI endoscopy, which did not reveal any acute findings. Her heparin drip was discontinued secondary to high risk of GI bleed. She did have an episode of V tach run status post arrest with initial CPR while she was intubated in the ICU, but afterward, she was resuscitated and there were no acute events. From a GI standpoint, Dr. Styles continued to follow the patient through her Unit #: [id number] #: [id number] Patient: JOSE G VILLA hospital course. Her hemoglobin did remain fairly stable. It did decrease slightly, but now it has reached its routine baseline, which is close to 9 to 10. Cardiology service has now signed off, as well. She did undergo a two-D echocardiogram, which did show ejection fraction 50% to 55% with grade 1 diastolic dysfunction. There was mild mitral regurgitation, which was noted. Tricuspid valve was normal. Eyhv-ex-krrrufsb tricuspid regurgitation was noted, as well. Severe concentric left ventricular hypertrophy was also noted. Dr. Maciel and associates from nephrology were also consulted secondary to her chronic kidney disease. They continued to follow the patient, as well. Her kidney function is now at baseline. Dr. Roberts of psychiatry service was consulted, as well, secondary to cognitive impairment. At the present time the patient is alert and oriented x3. Her son and daughter are present at bedside. She has been evaluated by both physical and occupational therapy services, who felt as though she is stable to be discharged home under the care of the patient's daughter and/or other children. \ At time of discharge the patient's laboratory studies show a hemoglobin of 10.5; her baseline, again, is close to 9 to 10. Her BMP shows a creatinine of 1.3, GFR at 54. FOLLOWUP 1. She is to have a repeat CBC, BMP in approximately 7 days with her primary care physician, Dr. Marshall, at [facility]. 2. She is to follow up as an outpatient in regard to her diabetic gastroparesis management. 3. We will also have home health service follow her at time of discharge. 4. She will follow up with Dr. Styles of gastroenterology service for possible repeat upper GI endoscopy and/or gastroparesis management to be conducted as an outpatient. FINAL DISCHARGE DIAGNOSES 1. Acute hypoxic respiratory failure. 2. Community-acquired pneumonia. 3. Acute respiratory distress syndrome. 4. Pulmonary edema. 5. Septic shock. 6. Ventricular tachycardia arrest status post resuscitation. 7. Non-ST elevation myocardial infarction; no acute intervention performed this hospital admission. 8. Probable/clinical suspicion for gastrointestinal bleed, now resolved. 9. Anemia. Baseline hemoglobin 9 to 10. 10. Acute kidney injury on chronic kidney disease likely stage 3 to 4. 11. History of hypertension. 12. Morbid obesity. 13. Underlying mental illness/psychiatric disorder. 14. Depression. 15. Chronic immobility syndrome. Baseline home use of walker. 16. Diabetes with insulin dependence, poorly controlled. 17. Gastroparesis, likely secondary to uncontrolled diabetes. FINAL DISCHARGE MEDICATIONS Unit #: [id number] #: [id number] Patient: JOSE G VILLA 1. Prednisone 20 mg p.o. daily x3 days. 2. Sodium bicarbonate 1,300 mg p.o. b.i.d. 3. Tylenol 650 mg p.o. q.6 p.r.n. 4. Prozac 60 mg p.o. daily. 5. DuoNeb aerosol solution q.6 hours scheduled. 6. Emend 40 mg p.o. daily (home medication). 7. Haldol 2 mg p.o. t.i.d. 8. Coreg 25 mg p.o. b.i.d. 9. Norvasc 10 mg p.o. daily. 10. Lipitor 40 mg p.o. q.h.s. 11. Clonidine 0.1 mg p.o. b.i.d. 12. Levemir 20 units subcu b.i.d. 13. NovoLog 10 units t.i.d. with meals. 14. Ferrous gluconate 324 mg p.o. daily. 15. Protonix 40 mg p.o. daily. 16. Aldactone 100 mg p.o. daily. 17. Zyprexa 5 mg p.o. t.i.d. DISCHARGE CONDITION Stable. DISCHARGE DISPOSITION Home. Dictated by... Ella Rios/weston TD: 03/09/2017 11:11 JOB #: [id number] DISCHARGE SUMMARY Page 1 of 1 X Radha Zepeda MD X DISCHARGE SUMMARY
--- NOTE | ~2017-02-20 | CR72 ---
[facility] A Service of [facility] RADIOLOGY TEXT RESULTS PATIENT: JOSE G VILLA LOCATION: [place] [address] : [birth year] UNIT #: [id number] AGE: [address]: Radha Zepeda MD SEX: F ORDER DR: [id number] [facility] [address]. [place], [place] [address] [id number] I MR#: [id number] Acc #: [id number] NAME: JOSE G VILLA. : 1965 SEX: F STUDY DATE/TIME: 03/01/2017 3:35 UNIT: [facility] ROOM: [facility] STUDY DESCRIPTION: CR Chest Single View Portable Attending Physician: Radha Zepeda M.D. Ordering Physician: Angela Camarillo M.D. Primary Care Physician: Soren Mancera M.D. MEDICAL IMAGING REPORT This report is preliminary unless electronic signature is present EXAM AP portable chest, 03/01/2017 at 03:35 HISTORY 31-year-old female with confusion and fever since 02/20/2017. Status post ventricular tachycardia with arrest and pneumonia. COMPARISON AP portable chest, 02/28/2017 at 04:00. FINDINGS Low volume inspiration with stable asymmetric elevation of the right hemidiaphragm. Alveolar disease changes are seen diffusely throughout both lungs, appears slightly increased. Bilateral internal jugular approach central lines, NG tube appear stable in position. No visible pneumothorax. Stable mild cardiac enlargement. Cholecystectomy changes. IMPRESSION Low volume inspiration with interval slight increase in worsening airspace disease changes in both lungs. Correlate clinically for worsening pneumonia. Dictated by... Susie Mary M.D. THIS IS AN ELECTRONICALLY VERIFIED REPORT Susie Mary M.D. at 03/01/2017 10:02 PM Brett TD: 03/01/2017 09:34 JOB #: [id number] MEDICAL IMAGING REPORT [facility] A Service of [facility] RADIOLOGY TEXT RESULTS PATIENT: JOSE G VILLA LOCATION: [address] : [birth year] UNIT #: [id number] AGE: [address]: Radha Zepeda MD SEX: F ORDER DR: Page 1 of 1 COPY
--- NOTE | ~2017-02-20 | CT71 ---
[facility] A Service of [facility] & [facility] RADIOLOGY TEXT RESULTS PATIENT: JOSE G VILLA LOCATION: [address] : [birth year] UNIT #: [id number] AGE: [address]: Radha Zepeda MD SEX: F ORDER DR: [id number] [facility] [address]. [place], [place] [address] [id number] I MR#: [id number] Acc #: [id number] NAME: JOSE G VILLA : 1965 SEX: F STUDY DATE/TIME: 02/27/2017 18:17 UNIT: [facility] ROOM: [facility] STUDY DESCRIPTION: CT Head Wo Contrast Attending Physician: Radha Zepeda M.D. Ordering Physician: Radha Zepeda M.D. Primary Care Physician: Soren Mancera M.D. MEDICAL IMAGING REPORT This report is preliminary unless electronic signature is present EXAM CT head without IV contrast. COMPARISON February 06, 2017, and October 29, 2016. INDICATIONS 51-year-old female with diminished level of consciousness today. TECHNIQUE This CT exam was performed with one or more of the following radiation dose reduction techniques: automatic exposure control, adjustment of mA and/or kV according to patient size, and iterative reconstruction. FINDINGS [employer] topogram shows a nasoenteric intubation. There is age-appropriate cerebral and cerebellar volume. There is no abnormal extraaxial fluid collection or mass effect. Detailed evaluation of the brain is limited by motion. No abnormal extraaxial fluid collection. No acute intracranial hemorrhage. Streak artifact limits evaluation of the posterior cranial fossa. No convincing evidence of acute ischemia. IMPRESSION Mildly motion limited exam. No evidence of acute intracranial abnormality. Not mentioned specifically in the body of the report, there is a new large amount of fluid in the dependent sphenoid sinus with fluid filling the ethmoid air cells, frontal sinuses and to a lesser extent the right maxillary sinus, all new from comparison. These findings can be seen in patients who have been endotracheally intubated. An acute sinusitis cannot be excluded. There are new small mastoid effusions as well without middle ear effusion. Clinical correlation recommended. STS. [facility] A Service of [facility] & [facility] RADIOLOGY TEXT RESULTS PATIENT: JOSE G VILLA LOCATION: [address] : [birth year] UNIT #: [id number] AGE: [address]: Radha Zepeda MD SEX: F ORDER DR: Dictated by... Farshad Kirby M.D. THIS IS AN ELECTRONICALLY VERIFIED REPORT Farshad Kirby M.D. at 03/02/2017 2:39 PM JOSEY/adrian TD: 02/27/2017 22:53 JOB #: [id number] MEDICAL IMAGING REPORT Page 1 of 1 COPY
--- NOTE | ~2017-02-20 | EKG ---
PATIENT: JOSE G VILLA UNIT #: [id number] Ventricular Rate: 140 BPM Atrial Rate: 140 BPM P-R Interval: 130 ms QRS Duration: 68 ms Q-T Interval: 282 ms QTC Calculation(Bezet): 430 ms P Pioneer: 70 degrees Calculated R Pioneer: 2 degrees Calculated T Pioneer: 82 degrees Diagnosis Line: Sinus tachycardia Diagnosis Line: Borderline ECG 5 Diagnosis Line: When compared with ECG of 07-NOV-2016 20:35, Diagnosis Line: Vent. rate has increased BY 46 BPM Diagnosis Line: Inverted T waves have replaced nonspecific T wave Diagnosis Line: abnormality in Lateral leads Diagnosis Line: Confirmed by RUBIA BOUCHER MD ([id number]) on Diagnosis Line: 02/21/2017 6:37:44 AM INTERPRETING : NATALIA
--- NOTE | ~2017-02-20 | CR72 ---
[facility] A Service of [facility] & [facility] RADIOLOGY TEXT RESULTS PATIENT: JOSE G VILLA LOCATION: [facility] 315-01 : [birth year] UNIT #: [id number] AGE: [address]: Radha Zepeda MD SEX: F ORDER DR: [id number] [facility] [address] [place], [place] [address] [id number] I MR#: [id number] Acc #: [id number] NAME: JOSE G VILLA. : 1965 SEX: F STUDY DATE/TIME: 03/06/2017 10:40 UNIT: A U ROOM: [facility] STUDY DESCRIPTION: CR Chest Single View Portable Attending Physician: Radha Zepeda M.D. Ordering Physician: Radha Zepeda M.D. Primary Care Physician: Soren Mancera M.D. MEDICAL IMAGING REPORT This report is preliminary unless electronic signature is present EXAM Portable chest x-ray 03/06/2017. HISTORY Short of air. FINDINGS AP radiograph of the chest is presented. Patient describes onset of symptoms today. Prior history of PE and DVT. Prior history of asthma, diabetes. AP radiograph of the chest is compared to study dated 03/02/2017. Right internal jugular central venous catheter unchanged. Cardiomediastinal contours grossly unchanged from prior study. Difficult to assess due to markedly anti lordotic projection of the image. The lung volumes are very low, decreased from prior examination. Despite the very low lung volumes, there is a significant decrease in interstitial and airspace densities throughout the lungs bilaterally. There is mild central vascular prominence likely reflecting predominately the low lung volumes and bronchovascular crowding. A component of residual vascular congestion could be considered. There is no dense airspace disease, pleural effusion or pneumothorax. There is an area of linear atelectasis at the left lung base. Elevation right hemidiaphragm stable. Prior cholecystectomy. Dictated by... Tripp Martin M.D. THIS IS AN ELECTRONICALLY VERIFIED REPORT Tripp Martin M.D. at 03/06/2017 6:48 PM VANNESSA/rafael TD: 03/06/2017 12:55 [facility] A Service of [facility] & [facility] RADIOLOGY TEXT RESULTS PATIENT: JOSE G VILLA LOCATION: [facility] 315-01 : [birth year] UNIT #: [id number] AGE: [address]: Radha Zepeda MD SEX: F ORDER DR: JOB #: [id number] MEDICAL IMAGING REPORT Page 1 of 1 COPY
--- NOTE | ~2017-02-20 | CR7 ---
[facility] A Service of [facility] & [facility] RADIOLOGY TEXT RESULTS PATIENT: JOSE G VILLA LOCATION: [address] : [birth year] UNIT #: [id number] AGE: [address]: Radha Zepeda MD SEX: F ORDER DR: [id number] [facility] [address] [place], [place] [address] [id number] I MR#: [id number] Acc #: [id number] NAME: JOSE G VILLA. : 1965 SEX: F STUDY DATE/TIME: 02/20/2017 21:12 UNIT: [facility] ROOM: [facility] STUDY DESCRIPTION: CR Abdomen Single AP View Attending Physician: Radha Zepeda M.D. Ordering Physician: Radha Zepeda M.D. Primary Care Physician: Soren Mancera M.D. MEDICAL IMAGING REPORT This report is preliminary unless electronic signature is present EXAM Portable abdomen. HISTORY NG tube placement. FINDINGS NG tube tip is in the medial left midabdomen at the level of the distal gastric body, 30 cm beyond the EG junction. Multiple hemoclips in the left upper quadrant, surgical clips in the right upper quadrant and tubal ligation clips in the pelvis. IVC filter at L2-3. The visualized bowel gas pattern is unremarkable with moderate amount of stool throughout the visualized colon. The right lateral abdomen is not included. IMPRESSION NG tube tip in the left abdomen at the level of the distal gastric body 30 cm beyond the EG junction. Dictated by... Xiang Sy M.D. THIS IS AN ELECTRONICALLY VERIFIED REPORT Xiang Sy M.D. at 02/20/2017 10:32 PM BREN/adrian TD: 02/20/2017 22:15 JOB #: [id number] MEDICAL IMAGING REPORT Page 1 of 1 COPY
--- NOTE | ~2017-02-20 | CO ---
Unit #: [id number] #: [id number] Patient: JOSE G JACOB [id number] [address] [address] [id number] I MR#: [id number] NAME: JOSE G JACOB. ROOM: 315 Age: 51 Sex: F Admission Date: 02/20/2017 : 1965 Attending Physician: Radha Zepeda M.D. Primary Care Physician: Soren Mancera M.D. Consultation Date: 03/08/2017 CONSULTATION REPORT REASON FOR CONSULTATION Followup. DISCUSSION Ms. Jose G Jacob is a 51-year-old -[place] female seen in room 315 bed 1 on 03/08/17. Patient was sitting comfortably in chair, receiving oxygen through nasal cannula, sleepy. Patient was talking more; able to answer some questions, denied any hallucination or agitation. Patient denied any side effects of medication, sleeping well. Vital signs: Temperature 98.4, heart rate 87, respirations 17, blood pressure 159/85, oxygen saturation 99%. Also obtained information from the nursing staff. REVIEW OF SYSTEMS Complete review of systems unremarkable. MENTAL STATUS EXAMINATION VITAL SIGNS: Please see above. GENERAL APPEARANCE: Patient dressed in hospital attire, sitting comfortably in chair, receiving oxygen through nasal cannula. ATTENTION SPAN AND CONCENTRATION: Poor. SPEECH: Slow. ORIENTATION: Oriented in self and place. MOOD AND AFFECT: Labile. THOUGHT PROCESS: Circumstantial. THOUGHT CONTENT: Guarded. MEMORY: Recent and remote memory poor. LANGUAGE: Fair. FUND OF KNOWLEDGE: Poor. INSIGHT AND JUDGMENT: Impaired. DIAGNOSES PSYCHIATRIC 1. Bipolar mood disorder, not otherwise specified, F31.89. 2. Delirium, improving, F05. ASSESSMENT/PLAN 1. Supportive psychotherapy and psychoeducation provided to patient. 2. Educated about benefits and side effects of medication and course and prognosis of illness but patient unable to comprehend much. 3. Advised to continue with current medication combination. 4. Advised to hold Haldol and Zyprexa if patient too sleepy. 5. We will continue to monitor and if needed make further adjustment to medication. Unit #: [id number] #: [id number] Patient: JOSE G JACOB Please feel free to call if any question, telephone number [phone]. Dictated by... Ella Payne/maryann TD: 03/08/2017 15:18 JOB #: [id number] CONSULTATION REPORT Page 1 of 1 X Paul Roberts MD CONSULTATION REPORT
--- NOTE | ~2017-02-20 | CR72 ---
[facility] A Service of [facility] & [facility] RADIOLOGY TEXT RESULTS PATIENT: JOSE G VILLA LOCATION: [address] : [birth year] UNIT #: [id number] AGE: [address]: Radha Zepeda MD SEX: F ORDER DR: [id number] [facility] [address] [place], [place] [address] [id number] I MR#: [id number] Acc #: [id number] NAME: JOSE G VILLA. : 1965 SEX: F STUDY DATE/TIME: 02/21/2017 4:29 UNIT: [facility] ROOM: [facility] STUDY DESCRIPTION: CR Chest Single View Portable Attending Physician: Radha Zepeda M.D. Ordering Physician: Radha Zepeda M.D. Primary Care Physician: Soren Mancera M.D. MEDICAL IMAGING REPORT This report is preliminary unless electronic signature is present EXAM AP portable chest 02/21/2017 HISTORY Respiratory failure. Patient on ventilator. Follow up cardiopulmonary status. TECHNIQUE AP portable chest x-ray. FINDINGS The exam shows no change since yesterday. Dense diffuse interstitial and alveolar infiltrate throughout both lungs. Low lung volumes with elevation right hemidiaphragm. Endotracheal tube, right IJ central line and NG tube remain in good position. No pneumothorax. Heart size normal. IMPRESSION Stable portable chest radiograph, unchanged since yesterday. Dictated by... Go Dozier M.D. THIS IS AN ELECTRONICALLY VERIFIED REPORT Go Dozier M.D. at 02/21/2017 5:58 AM DAVID/katie TD: 02/21/2017 05:01 JOB #: [id number] MEDICAL IMAGING REPORT Page 1 of 1 COPY
--- NOTE | ~2017-02-20 | US140 ---
[facility] A Service of [facility] & [facility] RADIOLOGY TEXT RESULTS PATIENT: JOSE G VILLA LOCATION: [facility] 315-01 : [birth year] UNIT #: [id number] AGE: [address]: Radha Zepeda MD SEX: F ORDER DR: [id number] [facility] [address] [place], [place] [address] [id number] I MR#: [id number] Acc #: [id number] NAME: JOSE G VILLA. : 1965 SEX: F STUDY DATE/TIME: 03/05/2017 10:23 UNIT: [address] ROOM: [address] [place] [address] DESCRIPTION: US UE Veins Unilat or Ltd Stdy Attending Physician: Radha Zepeda M.D. Ordering Physician: Yusuf Gilliam M.D. Primary Care Physician: Soren Mancera M.D. MEDICAL IMAGING REPORT This report is preliminary unless electronic signature is present EXAM Unilateral right upper extremity venous Doppler, 03/05/2017 HISTORY Right arm swelling for 8 days. TECHNIQUE Venous ultrasound examination of the right upper extremity was performed using grayscale, spectral Doppler and color flow Doppler imaging. FINDINGS The examination is negative. There is no evidence of deep venous thrombus within the right internal jugular vein, subclavian vein, axillary vein or brachial veins. No superficial venous thrombus is seen within the cephalic or basilic veins. IMPRESSION Negative examination. No evidence of right upper extremity venous thrombosis. Dictated by... Ray Jeffery M.D. THIS IS AN ELECTRONICALLY VERIFIED REPORT Ray Jeffery M.D. at 03/09/2017 10:38 AM SANDY/phani TD: 03/05/2017 11:32 JOB #: [id number] MEDICAL IMAGING REPORT Page 1 of 1 COPY
--- NOTE | ~2017-02-20 | CO ---
Unit #: [id number] #: [id number] Patient: JOSE G JACOB [id number] [facility] [address] [place], [place] [address] [id number] I MR#: [id number] NAME: JOSE G JACOB. ROOM: [facility] Age: 51 Sex: F Admission Date: 02/20/2017 : 1965 Attending Physician: Radha Zepeda M.D. Primary Care Physician: Soren Mancera M.D. Consultation Date: 03/03/2017 CONSULTATION REPORT REASON FOR CONSULTATION Followup. DISCUSSION Ms. Jose G Jacob is a 51-year-old female seen in room CCU2, bed 4, on 03/03/2017 at [facility]. Patient was able to follow commands but still very guarded, paranoid, flat, almost catatonic. Patient has a history of hallucination, depression concurrently, all from her antipsychotics. As patient was physically very sick, required blood transfusion. Patient still has IV. Currently working with physical therapy. Blood sugar 276 this morning. Patient still mute and not answering questions but able to follow commands. Vital signs 98.6, 84, 19, 147/69, oxygen saturation 100%. Seemed guarded, paranoid, . REVIEW OF SYSTEMS Complete review of systems is unremarkable. MENTAL STATUS EXAMINATION GENERAL APPEARANCE: The patient dressed in hospital attire. Sitting comfortably in bed. No agitation. Flat affect. Attention span and concentration poor. Speech mute. Oriented unable to assess. Mood and affect flat, sad, dysphoric. Thought process unable to assess. Thought content guarded, paranoid. Seems to be responding to internal stimuli. Recent and remote memory poor. Language unable to test. Fund of knowledge unable to test. Insight and judgment impaired. PSYCHIATRIC DIAGNOSIS 1. Bipolar mood disorder, not otherwise specified. F31.89. 2. Psychosis, not otherwise specified. F29.0. ASSESSMENT AND PLAN 1. Recommending at this time to resume patient's medication, starting patient on Haldol 2 mg t.i.d. for the psychotic symptoms. Monitor for side effects. Continue with Prozac 60 mg daily. Also advised Zyprexa 5 mg t.i.d. and advised to hold medication if patient too sleepy. 2. We will continue to follow. 3. Please feel free to call if any questions, . Unit #: [id number] #: [id number] Patient: JOSE G JACOB Dictated by... lEla Payne/kusum TD: 03/03/2017 21:27 JOB #: [id number] CONSULTATION REPORT Page 1 of 1 X Paul Roberts MD X CONSULTATION REPORT
--- NOTE | ~2017-02-20 | CT4 ---
[facility] A Service of [facility] / [facility] RADIOLOGY TEXT RESULTS PATIENT: JOSE G VILLA LOCATION: CICCU2 CICCU12-06 : 63 UNIT #: [id number] AGE: [address]: Radha Zepeda MD SEX: F ORDER DR: [id number] [facility] [address]. [place], [place] [address] [id number] I MR#: [id number] Acc #: [id number] NAME: JOSE G VILLA. : 1965 SEX: F STUDY DATE/TIME: 02/28/2017 14:59 UNIT: [facility] ROOM: [facility] STUDY DESCRIPTION: CT Abd and Pelv Wo Cont Attending Physician: Radha Zepeda M.D. Ordering Physician: Vic Styles M.D. Primary Care Physician: Soren Mancera M.D. MEDICAL IMAGING REPORT This report is preliminary unless electronic signature is present EXAM CT abdomen and pelvis without contrast. HISTORY Abdomen pain today. TECHNIQUE This CT exam was performed with one or more of the following radiation dose reduction techniques: automatic exposure control, adjustment of mA and/or kV according to patient size, and iterative reconstruction. FINDINGS CT abdomen and pelvis was performed without contrast CT ABDOMEN: There are moderate multifocal pulmonary infiltrates or atelectasis in both lung bases, greater on the right middle lobe, new compared to 12/11/2016 CT. The liver, spleen, pancreas, kidneys, and adrenal glands are unremarkable. Cholecystectomy. No bowel dilatation. Hemoclips in the stomach. IVC filter below the level of the renal veins. No free fluid or inflammatory stranding. No bowel dilatation. CT PELVIS: No pelvic mass or free fluid. Hysterectomy. Matias catheter in the bladder. Small bilateral inguinal hernias containing fat. IMPRESSION 1. No acute findings in the abdomen or pelvis. No bowel obstruction or urinary obstruction. 2. Cholecystectomy and hysterectomy. [facility] A Service of [facility] / [facility] RADIOLOGY TEXT RESULTS PATIENT: JOSE G VILLA LOCATION: CICCU2 CICCU12-06 : 63 UNIT #: [id number] AGE: [address]: Radha Zepeda MD SEX: F ORDER DR: 3. Multifocal subsegmental infiltrates or atelectasis in both lung bases, greater in the right middle lobe. Dictated by... Xiang Sy M.D. THIS IS AN ELECTRONICALLY VERIFIED REPORT Xiang Sy M.D. at 03/01/2017 10:55 PM BREN/adrian TD: 02/28/2017 17:40 JOB #: [id number] MEDICAL IMAGING REPORT Page 1 of 1 COPY
--- NOTE | ~2017-02-20 | CT57 ---
[facility] A Service of [facility] & [facility] RADIOLOGY TEXT RESULTS PATIENT: JOSE G VILLA LOCATION: CEDOF 31634-09 : [birth year] UNIT #: [id number] AGE: [address]: Radha Zepeda MD SEX: F ORDER DR: [id number] [facility] [address]. [place], [place] [address] [id number] I MR#: [id number] Acc #: [id number] NAME: JOSE G VILLA. : 1965 SEX: F STUDY DATE/TIME: 02/20/2017 11:30 UNIT: [facility] ROOM: 54600 STUDY DESCRIPTION: CT Chest Wo Cont Attending Physician: Radha Zepeda M.D. Ordering Physician: Radha Zepeda M.D. Primary Care Physician: Soren Mancera M.D. MEDICAL IMAGING REPORT This report is preliminary unless electronic signature is present EXAM CT chest without contrast. INDICATIONS Chest pain, nonproductive cough, shortness of breath, which started this morning. TECHNIQUE Axial CT images were obtained from the thoracic inlet through the dome of the diaphragm. No intravenous contrast material was administered. This CT exam was performed with one or more of the following radiation dose reduction techniques: automatic exposure control, adjustment of mA and/or kV according to patient size, and iterative reconstruction. FINDINGS Extensive bilateral pulmonary infiltrates are noted. These are more significant on the right although there is additional involvement on the left. Dense consolidation with associated air bronchograms is noted within the right lower lobe. The patient's thyroid gland trachea esophagus appear unremarkable. Patient's mediastinal lymph nodes are enlarged, for example a precarinal node measures up to 1.3 x 1.8 cm. There is a small pericardial effusion which is new and compared to the prior study. Thoracic aorta measures within normal size limits. Patient is noted to have pneumobilia. There are postsurgical changes identified within the stomach. Superior aspect of a suspected inferior vena cava filter is noted, I do not see any definite acute abnormalities within the upper abdomen. Review of bony windows do not demonstrate any aggressive osseous abnormalities. IMPRESSION 1. This patient has extensive bilateral pulmonary infiltrates right STS. [facility] A Service of [facility] & [facility] RADIOLOGY TEXT RESULTS PATIENT: JOSE G VILLA LOCATION: [facility] [address]8881-14 : [birth year] UNIT #: [id number] AGE: [address]: Radha Zepeda MD SEX: F ORDER DR: greater than left. Multifocal pneumonia would certainly be in the differential, pulmonary hemorrhage could also have this appearance, please correlate with patient's clinical presentation. 2. Small pericardial effusion, this is new when compared to the prior examination. 3. Mediastinal adenopathy likely reactive given the findings within the pulmonary parenchyma, I would suggest short-term followup for both the adenopathy and the extensive infiltrates. Please see the body of report for any other additional incidental findings. Dictated by... Ame Lange M.D. THIS IS AN ELECTRONICALLY VERIFIED REPORT Ame Lange M.D. at 02/20/2017 4:39 PM AFF/dj TD: 02/20/2017 14:04 JOB #: [id number] MEDICAL IMAGING REPORT Page 1 of 1 COPY
--- NOTE | ~2017-02-20 | HP ---
Unit #: [id number] #: [id number] Patient: JOSE G VILLA [id number] [address] [place], [place] [address] [id number] I MR#: [id number] NAME: JOSE G VILLA ROOM: 22554 Age: 51 Sex: F Admission Date: 02/20/2017 : 1965 Attending Physician: Radha Zepeda M.D. Primary Care Physician: Soren Mancera M.D. HISTORY AND PHYSICAL CHIEF COMPLAINT Dyspnea and congestion for one day and orthopnea for the last week. HISTORY OF PRESENT ILLNESS The patient is a 51-year-old female with past medical history of diabetes with gastroparesis and peripheral neuropathy, chronic kidney disease stage 3-4, neurogenic bladder, essential hypertension, COPD, chronic diastolic heart failure, history of DVT with IVC filter placed maintained on Eliquis per chart in December of 2016, bipolar disorder, sarcoidosis, who was transferred from [facility] where she was receiving treatment due to hearing voices and depression due to symptoms of shortness of breath and hypoxia. The patient tells me that her symptoms of shortness of breath as well as congested started just yesterday but she also tells me that she has been having difficulty sleeping at night and has been requiring an inhaler by the nurse at [facility] for the past week. The patient denies any fevers, subjective fevers. The patient denies coughing prior to this. The patient denies sick contact. The patient denies peripheral edema. The patient was seen in our emergency department where she was found to be hypoxic requiring oxygen via nasal cannula at two liters. Chest x-ray reveals patchy right mid lung infiltrate. She did have a fever. The highest documented was 102.5. She was asked to be seen by our service for admission due to sepsis. At this time, the patient had received antibiotics with vancomycin as well as Maxipime in the emergency department. She has been placed on a sepsis protocol. PAST MEDICAL HISTORY The patient states that she does have gastroparesis with recurrent admission, chronic kidney disease stage 3 to 4, neurogenic bladder, type 2 diabetes, history of heart failure with diastolic heart failure with a left ventricular ejection fraction of 65%. Of note, the patient had a normal stress test back in November of this year. The patient does have peripheral neuropathy, essential hypertension, asthma, DVT and pulmonary embolism with an IVC filter, is maintained on Eliquis, has history of sarcoidosis as well as bipolar disorder. PAST SURGICAL HISTORY The patient has had an appendectomy, hysterectomy, cholecystectomy, esophageal dilation, gastric stimulation placed and removed, and IVC filter that is present. SOCIAL HISTORY The patient states she lives at home with her daughter, her daughter's and her grandchildren. Apparently, she was sent to us from [facility] due to depression and hearing voices. The patient denies Unit #: [id number] #: [id number] Patient: JOSE G VILLA any history of tobacco usage. The patient denies alcohol usage. The patient denies any illicit drug usage. FAMILY HISTORY The patient states that it is positive for hypertension and diabetes. ALLERGIES Penicillin, codeine and Reglan. HOME MEDICINE 1. Seroquel 100 mg orally at bedtime. 2. Lipitor 10 mg orally at bedtime. 3. Hydralazine 50 mg orally three times daily. 4. Prozac 60 mg orally daily. 5. Emend 40 mg orally daily. 6. Aldactone 100 mg orally daily. 7. Deltasone 20 mg orally daily. 8. Normodyne 100 mg orally twice daily. 9. Levemir 42 units subcutaneously twice daily with meals. 10. Neurontin 1200 mg orally three times daily. 11. Iron gluconate 324 mg orally daily. 12. Colace 100 mg orally daily. 13. Depakote 50 mg orally twice daily. 14. Bentyl 20 mg orally three times daily. 15. Protonix 40 mg orally daily. 16. NovoLog 18 units subcutaneously three times daily with meals. 17. Ventolin two puffs inhaled every four hours as needed for shortness of breath. REVIEW OF SYSTEMS All 14 review of systems are performed and all the pertinent positives are described in the H and P. All others are negative. PHYSICAL EXAMINATION GENERAL APPEARANCE: A morbidly obese -Tongan lying in bed, moaning in distress, stating that she is having difficulty breathing but she does not have any use of accessory muscles at this time. VITAL SIGNS: At the time of my evaluation, vitals include temperature 99.6, pulse 108, respiratory rate 16, blood pressure 90/56, oxygen saturation 90% on two liters via nasal cannula. Please note the patient's T-max is 102.5. HEENT: Head: Atraumatic, normocephalic. Pupils are equal, round and reactive to light and accommodation. Extraocular movements are intact. Dry mucous membranes. No dentures in place. NECK: Supple. No JVD. CHEST: Lungs with significant rhonchi bilaterally in all lobes as well as prolonged expiratory wheezes. CARDIAC: Sinus rhythm but tachycardiac in rate. ABDOMEN: Soft. Bowel sounds present. Nontender, nondistended. No rebound. EXTREMITIES: No cyanosis. No clubbing. NEUROLOGIC: Alert, awake, oriented. No gross focal motor deficit. PSYCHIATRIC: Mood and affect are appropriate. DIAGNOSTIC STUDIES LABORATORY: CMP: Glucose 172, BUN 29, creatinine 1.8, sodium 144, potassium 4.5, chloride 107, CO2 25, calcium 9.1, total protein 7.6, albumin 3.5, total bilirubin 0.4, AST 70, ALT 37, alkaline phosphatase Unit #: [id number] #: [id number] Patient: JOSE G VILLA 139. Lactic acid 2.0, was the first lactic acid taken. The patient's cardiac enzymes were non elevated. CBC with WBC of 9.3, RBC 3.64, hemoglobin 9.8, hematocrit 30.8, MCV 82.5, MCH 26.8, MCHC 32.5, RDW 17.8, platelets 302, MPV 7.7. Please note that the flu swabs have been negative. ASSESSMENT AND PLAN 1. Sepsis present on admission with sinus tachycardia and a fever likely due to a lung source. We will also be checking her urine. All other physical exam is unremarkable to a source of infection. 2. Healthcare-acquired pneumonia. We are treating for a presumed Pseudomonas and staph. 3. Acute hypoxic respiratory failure, likely due to the pneumonia. We will give oxygen support as needed. 4. Acute COPD exacerbation. We will be treating with IV steroids, bronchodilators and mucolytics. 5. Type 2 diabetes with peripheral neuropathy and gastroparesis. We will continue the patient's home insulin. Accu-Cheks and sliding scale insulin as well. 6. Chronic kidney disease stage [address] Maciel was consulted and will be following. 7. Neurogenic bladder. Bladder scan has been ordered. 8. Essential hypertension. Blood pressure has been labile. Her home management as holding parameters. She will most likely not need any at this time. 9. History of diastolic heart failure. Left ventricular ejection fraction is 65%. The patient appears dry and will be needing fluids at this time. 10. History of sarcoidosis. 11. Bipolar disorder. 12. Morbidly obese. 13. History of gastric stricture. 14. Chronically anticoagulated with Eliquis. The patient does have an IVC filter placed. Dictated by Guero Guillory PA-C for Ella Rios/rafael TD: 02/20/2017 10:46 JOB #: [id number] HISTORY AND PHYSICAL Page 1 of 1 X X HISTORY AND PHYSICAL
--- NOTE | ~2017-02-20 | CR72 ---
[facility] A Service of [facility] & [facility] RADIOLOGY TEXT RESULTS PATIENT: JOSE G VILLA LOCATION: CEDOF [address]26-12 : [birth year] UNIT #: [id number] AGE: [address]: Radha Zepeda MD SEX: F ORDER DR: [id number] [facility] [address] [place], [place] [address] [id number] I MR#: [id number] Acc #: [id number] NAME: JOSE G VILLA. : 1965 SEX: F STUDY DATE/TIME: 02/20/2017 14:15 UNIT: CEDOF ROOM: 78214 STUDY DESCRIPTION: CR Chest Single View Portable Attending Physician: Radha Zepeda M.D. Ordering Physician: Kaylin Amaya M.D. Primary Care Physician: Soren Mancera M.D. MEDICAL IMAGING REPORT This report is preliminary unless electronic signature is present EXAM Portable chest 02/20/2017 INDICATIONS Central line placement. COMPARISON STUDIES Comparison with earlier today. FINDINGS There is a new right IJ central venous catheter with tip projecting over the location of the lower SVC. No evidence of pneumothorax. Worsening infiltrates bilaterally. IMPRESSION New right IJ central venous catheter with tip projecting over the region of the lower SVC. No pneumothorax. Worsening infiltrates. Dictated by... Gene Rodgers M.D. THIS IS AN ELECTRONICALLY VERIFIED REPORT Gene Rodgers M.D. at 02/20/2017 4:47 PM ANGEL/gregory TD: 02/20/2017 16:16 JOB #: [id number] MEDICAL IMAGING REPORT Page 1 of 1 COPY
--- NOTE | ~2017-02-20 | CR72 ---
[facility] A Service of [facility] & [facility] RADIOLOGY TEXT RESULTS PATIENT: JOSE G VILLA LOCATION: [facility] [address]-74 : [birth year] UNIT #: [id number] AGE: [address]: Radha Zepeda MD SEX: F ORDER DR: [id number] [facility] [address] [place], [place] [address] [id number] MR#: [id number] Acc #: [id number] NAME: JOSE G VILLA. : 1965 SEX: F STUDY DATE/TIME: 02/20/2017 4:26 UNIT: [facility] ROOM: STUDY DESCRIPTION: CR Chest Single View Portable Attending Physician: Kaylin Amaya M.D. Ordering Physician: Nicholas Lombardo M.D. Primary Care Physician: Soren Mancera M.D. MEDICAL IMAGING REPORT This report is preliminary unless electronic signature is present EXAM Portable chest 02/20/2017 INDICATION Shortness of air for 1 day. COMPARISON 02/05/2017. FINDINGS This portable view of the chest shows low lung volumes with patchy right midlung infiltrate. The left lung is clear. The heart size is normal. Dictated by... Ian Mcarthur M.D. THIS IS AN ELECTRONICALLY VERIFIED REPORT Ian Mcarthur M.D. at 02/20/2017 1:15 PM CECILY/stalin TD: 02/20/2017 06:45 JOB #: [id number] MEDICAL IMAGING REPORT Page 1 of 1 COPY
--- NOTE | ~2017-02-20 | CR72 ---
[facility] A Service of [facility] & [facility] RADIOLOGY TEXT RESULTS PATIENT: JOSE G VILLA LOCATION: [address] : [birth year] UNIT #: [id number] AGE: [address]: Radha Zepeda MD SEX: F ORDER DR: [id number] [facility] [address] [place], [place] [address] [id number] I MR#: [id number] Acc #: [id number] NAME: JOSE G VILLA : 1965 SEX: F STUDY DATE/TIME: 02/21/2017 11:42 UNIT: [facility] ROOM: [facility] STUDY DESCRIPTION: CR Chest Single View Portable Attending Physician: Radha Zepeda M.D. Ordering Physician: Radha Zepeda M.D. Primary Care Physician: Soren Mancera M.D. MEDICAL IMAGING REPORT This report is preliminary unless electronic signature is present EXAM Portable chest 02/21 11:42 INDICATIONS Shortness of air today. Possible pneumonia. History of hypertension. FINDINGS AP portable chest compared with earlier this morning. Tubes and lines are unchanged and well positioned. Bilateral infiltrates are unchanged and presumably reflect pneumonia. Heart size stable. No pneumothorax. Dictated by... Jimi Lutz Jr., M.D. THIS IS AN ELECTRONICALLY VERIFIED REPORT Jimi Lutz Jr., M.D. at 02/21/2017 3:03 PM CHICHI/derrick TD: 02/21/2017 14:44 JOB #: [id number] MEDICAL IMAGING REPORT Page 1 of 1 COPY
--- NOTE | ~2017-02-20 | CO ---
Unit #: [id number] #: [id number] Patient: JOSE G JACOB [id number] [facility] [address] [place], [place] [address] [id number] I MR#: [id number] NAME: JOSE G JACOB ROOM: 315 Age: 51 Sex: F Admission Date: 02/20/2017 : 1965 Attending Physician: Radha Zepeda M.D. Primary Care Physician: Soren Mancera M.D. Consultation Date: 03/06/2017 CONSULTATION REPORT REASON FOR CONSULTATION Followup. DISCUSSION Ms. Jose G Jacob is a 51-year-old female, seen in room 315, bed 1 on 03/06/2017 at [facility]. The patient dressed in hospital attire, compliant cooperative, redirectable. The patient's blood glucose 248. The patient's vital signs; temperature 97.9, pulse 92, respirations 20, and blood pressure 107/63, oxygen saturation 100%. The patient still talking very minimally, withdrawn, isolative, flat affect, guarded. The patient is compliant with medication. No agitation. REVIEW OF SYSTEMS Complete review of systems unremarkable. MENTAL STATUS EXAMINATION General appearance, the patient dressed casually in hospital attire. Attention span and concentration, poor. Speech, minimal. Oriented in self. Mood and affect, flat. Thought process, circumstantial. Thought content, guarded, paranoid, but denied any thoughts of harming self or others. Recent and remote memory, poor. Language, fair. Fund of knowledge, impaired. Insight and judgment, impaired. DIAGNOSES Psychiatric: Delirium, F05, improving; bipolar mood disorder, not otherwise specified, F31.89. ASSESSMENT AND PLAN Supportive psychotherapy and psychoeducation provided to the patient. Educated about benefits and side effects of medication and course and prognosis of illness. Continue with current medication. We will closely monitor. If needed, consider further adjustment of medication. Please feel free to call if any questions telephone #[phone]. Dictated by... Paul Roberts M.D. REGINO/almaz TD: 03/06/2017 20:55 JOB #: [id number] Unit #: [id number] #: [id number] Patient: JOSE G JACOB CONSULTATION REPORT Page 1 of 1 X Paul Roberts MD CONSULTATION REPORT
--- NOTE | ~2017-02-20 | CO ---
Unit #: [id number] #: [id number] Patient: JOSE G JACOB 115714 [facility] [address]. [place], [place] [address] [id number] I MR#: [id number] NAME: JOSE G JACOB. ROOM: [facility] Age: 51 Sex: F Admission Date: 02/20/2017 : 1965 Attending Physician: Radha Zepeda M.D. Primary Care Physician: Soren Mancera M.D. Consultation Date: 02/21/2017 CONSULTATION REPORT REASON FOR CONSULTATION Confusion, agitation, history of bipolar disorder. HISTORY OF PRESENT ILLNESS Ms. Jose G Jacob is a 51-year-old female, who was transferred from [facility], where she was admitted due to depression, suicidal ideation, and command hallucination. The patient was seen in room 4 CCU 2 at [facility] on 02/21/2017. The patient was admitted due to respiratory failure. The patient was unable to give any reliable information, intubated due to respiratory failure. PAST PSYCHIATRIC HISTORY Remarkable for history of depression and hallucinations. The patient was admitted at [facility], diagnosed with bipolar mood disorder. MEDICAL HISTORY Remarkable for gastroparesis, chronic kidney disease, neurogenic bladder, diabetes, hypertension, congestive heart failure, diastolic chronic anticoagulation, PE/DVT, sarcoidosis, bipolar disorder. MEDICATIONS The patient is on Lipitor, heparin, Lopressor, aspirin, NovoLog, Protonix, Keppra, Seroquel 100 mg at bedtime, Zofran, Humibid, Prozac 60 mg daily. FAMILY HISTORY AND SOCIAL HISTORY The patient has good family support. No history of any substance abuse. No history of abuse. REVIEW OF SYSTEMS Complete review of systems is unremarkable as the patient unable to give any reliable information at this time, but remarkable for confusion. MENTAL STATUS EXAMINATION Vital signs; temperature 98.0, pulse 100, respirations 22, blood pressure 195/63, oxygen saturations 94%. General appearance, the patient dressed casually. The patient was intubated, unable to give any information. Attention span and concentration, speech; unable to assess. Orientation, unable to assess. Mood and affect, unable to assess. Thought process and thought content, unable to assess. Recent and remote memory, unable to assess. Language, unable to assess. Fund of knowledge, unable to assess. Insight and judgment, impaired at this time. DIAGNOSES Psychiatric: Bipolar mood disorder, not otherwise specified, F31.89; Unit #: [id number] #: [id number] Patient: JOSE G JACOB delirium, F05. Secondary diagnosis: Deferred. Medical diagnosis: Please refer to H and P. Stressors: Psychosocial stressors. ASSESSMENT AND PLAN 1. Supportive psychotherapy and psychoeducation provided to the patient's family, who was at the bedside, but unable to the patient. 2. Educated about benefits of her medication and course and prognosis of illness to the patient's family, who was at the bedside. 3. Advised at this time to continue with current medication, Prozac and Seroquel. If needed, consider further adjustment of medication. If needed, consider haloperidol. Please feel free to call if any questions, telephone [phone]. Dictated by... Ella Payne/almaz TD: 02/23/2017 01:29 JOB #: [id number] CONSULTATION REPORT Page 1 of 1 X Paul Roberts MD X CONSULTATION REPORT
--- NOTE | ~2017-02-20 | EKG ---
PATIENT: JOSE G VILLA UNIT #: [id number] Ventricular Rate: 89 BPM Atrial Rate: 89 BPM P-R Interval: 138 ms QRS Duration: 82 ms Q-T Interval: 414 ms QTC Calculation(Bezet): 503 ms P [place]: 59 degrees Calculated R [place]: 36 degrees Calculated T [place]: 25 degrees Diagnosis Line: Normal sinus rhythm Diagnosis Line: Nonspecific T wave abnormality Diagnosis Line: Prolonged QT Diagnosis Line: Abnormal ECG Diagnosis Line: When compared with ECG of 22-FEB-2017 16:26, Diagnosis Line: (unconfirmed) Diagnosis Line: QT has lengthened Diagnosis Line: Confirmed by JULIA MCLAUGHLIN MD ([id number]) on 02/23/2017 Diagnosis Line: 10:10:37 PM INTERPRETING MD: LISSETTE SMITH
--- NOTE | ~2017-02-20 | CR72 ---
[facility] A Service of [facility] RADIOLOGY TEXT RESULTS PATIENT: JOSE G VILLA LOCATION: [address]06 : [birth year] UNIT #: [id number] AGE: [address]: Radha Zepeda MD SEX: F ORDER DR: [id number] [facility] [address] [facility] [place], [place] [address] [id number] I MR#: [id number] Acc #: [id number] NAME: JOSE G VILLA. : 1965 SEX: F STUDY DATE/TIME: 02/25/2017 2:18 UNIT: [facility] ROOM: [facility] STUDY DESCRIPTION: CR Chest Single View Portable Attending Physician: Radha Zepeda M.D. Ordering Physician: Radha Zepeda M.D. Primary Care Physician: Soren Mancera M.D. MEDICAL IMAGING REPORT This report is preliminary unless electronic signature is present EXAM AP portable chest 02/25/2017 HISTORY Respiratory failure. Follow up cardiopulmonary status. Patient on ventilator. TECHNIQUE AP portable chest x-ray. FINDINGS Diffuse, predominantly interstitial opacity throughout both lungs has improved since yesterday with slightly improved overall lung expansion. Lung volumes remain low. No dense airspace consolidation. No visible pneumothorax or pleural effusion. ETT, right IJ central line and left IJ Shiley catheter remain in good position. NG tube below the diaphragm. IMPRESSION 1. Support equipment remains in good position. 2. Slight improved overall lung expansion since yesterday. Dictated by... Go Dozier M.D. THIS IS AN ELECTRONICALLY VERIFIED REPORT Go Dozier M.D. at 02/25/2017 5:59 AM DAVID/alba TD: 02/25/2017 03:07 JOB #: [id number] [facility] A Service of [facility] RADIOLOGY TEXT RESULTS PATIENT: JOSE G VILLA LOCATION: [address] : [birth year] UNIT #: [id number] AGE: [address]: Radha Zepeda MD SEX: F ORDER DR: MEDICAL IMAGING REPORT Page 1 of 1 COPY
--- NOTE | ~2017-02-20 | CR7 ---
[facility] A Service of [facility] & [facility] RADIOLOGY TEXT RESULTS PATIENT: JOSE G VILLA LOCATION: [address] : [birth year] UNIT #: [id number] AGE: [address]: Radha Zepeda MD SEX: F ORDER DR: [id number] [facility] [address] [facility]. [place], [place] [address] [id number] I MR#: [id number] Acc #: [id number] NAME: JOSE G VILLA. : 1965 SEX: F STUDY DATE/TIME: 03/01/2017 10:14 UNIT: [facility] ROOM: [facility] STUDY DESCRIPTION: CR Abdomen Single AP View Attending Physician: Radha Zepeda M.D. Ordering Physician: Radha Zepeda M.D. Primary Care Physician: Soren Mancera M.D. MEDICAL IMAGING REPORT This report is preliminary unless electronic signature is present EXAM Supine abdomen one-view HISTORY Nasogastric tube repositioning. Abdominal pain. COMPARISON 02/20/2017 FINDINGS Bowel gas pattern is normal. A nasogastric tube present distal tip in the distal stomach. Dictated by... Ray Jeffery M.D. THIS IS AN ELECTRONICALLY VERIFIED REPORT Ray Jeffery M.D. at 03/02/2017 9:49 AM TEV/kateryna TD: 03/01/2017 13:12 JOB #: [id number] MEDICAL IMAGING REPORT Page 1 of 1 COPY
--- NOTE | ~2017-02-20 | EKG ---
PATIENT: JOSE G VILLA UNIT #: [id number] Ventricular Rate: 102 BPM Atrial Rate: 102 BPM P-R Interval: 144 ms QRS Duration: 76 ms Q-T Interval: 332 ms QTC Calculation(Bezet): 432 ms P Almond: 51 degrees Calculated R Almond: 43 degrees Calculated T Almond: 50 degrees Diagnosis Line: Sinus tachycardia Diagnosis Line: Nonspecific ST abnormality Diagnosis Line: Abnormal ECG Diagnosis Line: When compared with ECG of 22-FEB-2017 02:38, Diagnosis Line: (unconfirmed) Diagnosis Line: Diagnosis Line: ST now depressed in Lateral leads Diagnosis Line: Confirmed by RUBIA BOUCHER MD ([id number]) on Diagnosis Line: 02/22/2017 12:52:46 PM INTERPRETING MD: NATALIA
--- NOTE | ~2017-02-20 | CR72 ---
[facility] A Service of [facility] RADIOLOGY TEXT RESULTS PATIENT: JOSE G VILLA [facility] 63 UNIT #: [id number] AGE: [address]: Radha Zepeda MD SEX: F ORDER DR: [id number] [facility] [address] [facility] [place], [place] [address] [id number] I MR#: [id number] Acc #: [id number] NAME: JOSE G VILLA. : 1965 SEX: F STUDY DATE/TIME: 02/23/2017 2:46 UNIT: [facility] ROOM: [facility] STUDY DESCRIPTION: CR Chest Single View Portable Attending Physician: Radha Zepeda M.D. Ordering Physician: Angela Camarillo M.D. Primary Care Physician: Soren Mancera M.D. MEDICAL IMAGING REPORT This report is preliminary unless electronic signature is present EXAM AP portable chest, 02/23/2017 HISTORY Respiratory failure. ARDS. Followup cardiopulmonary status. TECHNIQUE AP portable chest x-ray. FINDINGS Endotracheal tube is in good position with tip in the mid thoracic trachea, improved since yesterday. There is improved overall expansion of both lungs and slightly decreased diffuse airspace opacity since yesterday. No visible pneumothorax or pleural effusion. Endotracheal tube, right IJ central line, left IJ Shiley catheter and NG tube are in good position. IMPRESSION 1. Support device is in good position today as noted above. 2. Improved lung expansion. Persistent moderately dense diffuse interstitial and airspace opacity with some improvement since yesterday. Dictated by... Go Dozier M.D. THIS IS AN ELECTRONICALLY VERIFIED REPORT Go Dozier M.D. at 02/23/2017 5:58 AM DAVID/fanny [facility] A Service of [facility] RADIOLOGY TEXT RESULTS PATIENT: JOSE G VILLA [facility] [birth year] UNIT #: [id number] AGE: [address]: Radha Zepeda MD SEX: F ORDER DR: TD: 02/23/2017 04:40 JOB #: [id number] MEDICAL IMAGING REPORT Page 1 of 1 COPY
--- NOTE | ~2017-02-20 | CR72 ---
[facility] A Service of [facility] & [facility] RADIOLOGY TEXT RESULTS PATIENT: JOSE G VILLA LOCATION: [address]06 : [birth year] UNIT #: [id number] AGE: [address]: Radha Zepeda MD SEX: F ORDER DR: [id number] [facility] [address] [place], [place] [address] [id number] I MR#: [id number] Acc #: [id number] NAME: JOSE G VILLA. : 1965 SEX: F STUDY DATE/TIME: 02/24/2017 4:37 UNIT: [facility] ROOM: [facility] STUDY DESCRIPTION: CR Chest Single View Portable Attending Physician: Radha Zepeda M.D. Ordering Physician: Angela Camarillo M.D. Primary Care Physician: Soren Mancera M.D. MEDICAL IMAGING REPORT This report is preliminary unless electronic signature is present EXAM AP portable chest 02/24/2017 HISTORY Respiratory failure. Patient on ventilator. Follow up cardiopulmonary status. TECHNIQUE AP portable upright chest x-ray. FINDINGS Moderately dense diffuse interstitial and airspace opacity throughout both lungs may represent changes associated with ARDS, diffuse pneumonitis and/or pulmonary edema. Endotracheal tube and bilateral IJ central venous catheters in good position. NG tube in good position. No visible pneumothorax or pleural effusion. IMPRESSION Stable portable chest radiograph, unchanged since yesterday. Support equipment in good position. Dictated by... Go Dozier M.D. THIS IS AN ELECTRONICALLY VERIFIED REPORT Go Dozier M.D. at 02/24/2017 9:53 PM MICHAELW/stalin TD: 02/24/2017 06:58 JOB #: [id number] MEDICAL IMAGING REPORT [facility] A Service of [facility] & [facility] RADIOLOGY TEXT RESULTS PATIENT: JOSE G VILLA LOCATION: [address] : [birth year] UNIT #: [id number] AGE: [address]: Radha Zepeda MD SEX: F ORDER DR: Page 1 of 1 COPY
--- NOTE | ~2017-02-20 | CO ---
Unit #: [id number] #: [id number] Patient: JOSE G JACOB [id number] [facility] [address] [facility]. [place], [place] [address] [id number] I MR#: [id number] NAME: JOSE G JACOB. ROOM: [facility] Age: 51 Sex: F Admission Date: 02/20/2017 : 1965 Attending Physician: Radha Zepeda M.D. Primary Care Physician: Soren Mancera M.D. Consultation Date: 02/28/2017 CONSULTATION REPORT REASON FOR CONSULTATION Followup. DISCUSSION Ms. Jose G Jacob is a 51-year-old female, seen in CCU-2, bed 4 on 02/28/2017 at [facility]. The patient continues to be withdrawn, isolative, flat affect, answered question in short sentences, confused, guarded, paranoid, but no agitation. The patient is currently on Prozac. The patient was on antipsychotic, which was stopped due to the above reason. The patient was receiving IV fluids and blood as her hemoglobin was around 5. Vital signs; temperature 100.1, pulse 90, respirations 24, blood pressure 134/75, oxygen saturation 96%. REVIEW OF SYSTEMS Complete review of systems is unremarkable. MENTAL STATUS EXAMINATION General appearance; the patient dressed in hospital attire, lying comfortably in bed, withdrawn, isolative, flat. Attention span and concentration, poor. Speech, slow. Orientation in self. Mood and affect, flat. Thought process, circumstantial. Thought content; guarded, paranoid. Recent and remote memory, poor. Language, poor. Fund of knowledge, impaired. Insight and judgment, impaired. DIAGNOSES Psychiatric: Delirium, F05; bipolar mood disorder, not otherwise specified, F31.89. ASSESSMENT AND PLAN 1. Supportive psychotherapy and psychoeducation provided to the patient and family. The patient is unable to comprehend much. 2. Advised to continue with current medication. If needed, consider resuming the patient's antipsychotic, advised to hold at this time. Continue with Prozac. We will continue to monitor the patient's mood and behavior. If needed, consider further adjustment of medication. Please feel free to call if any questions, telephone #[phone]. Dictated by... Ella Payne/almaz TD: 03/01/2017 13:49 Unit #: [id number] #: [id number] Patient: JOSE G JACOB JOB #: [id number] CONSULTATION REPORT Page 1 of 1 X Paul Roberts MD X CONSULTATION REPORT
--- NOTE | ~2017-02-20 | EKG ---
PATIENT: JOSE G VILLA UNIT #: [id number] Ventricular Rate: 138 BPM Atrial Rate: 138 BPM P-R Interval: 154 ms QRS Duration: 88 ms Q-T Interval: 368 ms QTC Calculation(Bezet): 557 ms P Largo: 72 degrees Calculated R Largo: 50 degrees Calculated T Largo: 67 degrees Diagnosis Line: Sinus tachycardia Diagnosis Line: Possible Left atrial enlargement Diagnosis Line: Low voltage QRS Diagnosis Line: Cannot rule out Anterior infarct (cited on or Diagnosis Line: before 22-FEB-2017) Diagnosis Line: Abnormal ECG Diagnosis Line: When compared with ECG of 20-FEB-2017 04:03, Diagnosis Line: Questionable change in QRS duration Diagnosis Line: Questionable change in initial forces of Diagnosis Line: Anteroseptal leads Diagnosis Line: Confirmed by RUBIA BOUCHER MD ([id number]) on Diagnosis Line: 02/22/2017 12:46:52 PM INTERPRETING MD: NATALIA
--- NOTE | ~2017-02-20 | CR72 ---
[facility] A Service of [facility] & [facility] RADIOLOGY TEXT RESULTS PATIENT: JOSE G VILLA LOCATION: [address]06 : [birth year] UNIT #: [id number] AGE: [address]: Radha Zepeda MD SEX: F ORDER DR: [id number] [facility] [address] [place], [place] [address] [id number] I MR#: [id number] Acc #: [id number] NAME: JOSE G VILLA. : 1965 SEX: F STUDY DATE/TIME: 02/26/2017 5:38 UNIT: [facility] ROOM: [facility] STUDY DESCRIPTION: CR Chest Single View Portable Attending Physician: Radha Zepeda M.D. Ordering Physician: Angela Camarillo M.D. Primary Care Physician: Soren Mancera M.D. MEDICAL IMAGING REPORT This report is preliminary unless electronic signature is present EXAM AP portable chest 02/26/2017 HISTORY Respiratory failure. Follow up cardiopulmonary status. TECHNIQUE AP portable chest x-ray. FINDINGS The examination shows no significant change following extubation since yesterday. Left IJ Shiley catheter and right IJ central line remain in good position with NG tube extending below the diaphragm. Mild diffuse interstitial opacity throughout both lungs. Heart size normal. Elevation right hemidiaphragm with right lung base atelectasis. IMPRESSION Stable portable chest radiograph following extubation since yesterday. Dictated by... Go Dozier M.D. THIS IS AN ELECTRONICALLY VERIFIED REPORT Go Dozier M.D. at 02/26/2017 10:18 PM DAVID/stalin TD: 02/26/2017 07:11 JOB #: [id number] MEDICAL IMAGING REPORT Page 1 of 1 COPY
--- NOTE | ~2017-02-20 | US140 ---
[facility] A Service of [facility] & [facility] RADIOLOGY TEXT RESULTS PATIENT: JOSE G VILLA LOCATION: [address]06 : [birth year] UNIT #: [id number] AGE: [address]: Radha Zepeda MD SEX: F ORDER DR: [id number] [facility] [address] [place], [place] [address] [id number] I MR#: [id number] Acc #: [id number] NAME: JOSE G VILLA. : 1965 SEX: F STUDY DATE/TIME: 02/27/2017 17:41 UNIT: [facility] ROOM: [facility] STUDY DESCRIPTION: US UE Veins Unilat or Ltd Stdy Attending Physician: Radha Zepeda M.D. Ordering Physician: Angela Camarillo M.D. Primary Care Physician: Soren Mancera M.D. MEDICAL IMAGING REPORT This report is preliminary unless electronic signature is present EXAM Right upper extremity venous ultrasound. This is right upper extremity swelling for 1 day. TECHNIQUE Ultrasound examination of the right upper extremity veins was performed with james-scale, color Doppler and spectral Doppler evaluation. FINDINGS The veins are patent and compressible. There is no DVT or SVT. There is a mixed echogenicity mass in the right lateral neck base, partly visualized, which could be a hematoma, and correlation the patient's history and physical exam findings is recommended. IMPRESSION 1. No DVT or SVT in the right upper extremity. 2. Partly visualized probable hematoma in the right lateral neck base measuring at least 4 cm, but incompletely included on the study. Dictated by... Xiang Sy M.D. THIS IS AN ELECTRONICALLY VERIFIED REPORT Xiang Sy M.D. at 02/27/2017 11:18 PM BREN/ector TD: 02/27/2017 22:14 JOB #: [id number] MEDICAL IMAGING REPORT Page 1 of 1 COPY
--- NOTE | ~2017-02-20 | FU ---
[facility] Nutrition Therapy DATE: 02/27/17 Patient: JOSE G VILLA Physician: CAMERON Address: [address] [place] [address] Room/Bed: [address], Zip: [place] [address] Admit Date: 02/20/17 Date of : [birth year] Height: 5 6 Weight: 210 95.5 NUTRITION MONITORING/FOLLOW-UP: Reason: PT SEEN FOR FOLLOW-UP/ENTERAL NUTRITION SUPPORT DX: SOA, ANGINA, ACUTE RESP FAILURE, ARDS Anthropometrics: 5'6", WT: 249# (113 KG), BMI: 40.2 -WEIGHTS HAVE BEEN STABLE SINCE ADMIT Labs: GLU: 174, BUN: 76, CREAT: 1.9, ALB: 2.9, AST: 44, GFR: 34.5, NA+:151 Meds: NOVOLOG, LIPITOR, NACL, PROTONIX, ZOFRAN, SOLU-MEDROL, LEVEMIR I&O's: 2353/9438, 2 BMs NOTED Skin: BILATERAL HANDS 1+ EDEMA; BILATERAL FEET 2+ EDEMA; FACE TRACE EDEMA Estimated Nutrition Needs: [phone] KCAL 89-118 G PRO Assessment: CHART REVIEWED AND EVENTS NOTED. PT SEEN FOR ENTERAL NUTRITION SUPPORT FOLLOW-UP. PT EXTUBATED, CONFUSED AND DISORIENTED AT TIME OF VISIT (NOT APPROPRIATE FOR DIET INTERVIEW). PT RECEIVING ALTERNATIVE NUTRITION SUPPORT OF GLUCERNA 1.5 @ 40 ML/HR +200 ML q 4 HOURS H20 FLUSHES. PLANS IN PLACE TO INCREASE EN TO GOAL OF 55 ML/HR PT TOLERANCE. PER RN AND CHART, PT TOLERATING EN, NOTING NO ISSUES AND PT FAILED OUTDOOR ADVERTISING LEASING AGENT EVAL. FAMILY AT BEDSIDE REPORTED NO DIET QUESTIONS AT TIME OF VISIT. RD TO CONTINUE TO FOLLOW. Dx: INADEQUATE PROTEIN-ENERGY INTAKE R/T NUTRITION NOT YET INITIATED AEB NEED FOR EN.-RESOLVED NEW DX: INADEQUATE ORAL INTAKE R/T DX, CURRENT CONDITION AEB EN IN PLACE. STAGE II OBESE R/T LIFESTYLE, DIET AEB BMI OF 37-40.-ACTIVE Intervention: 1. ENTERAL NUTRITION 2. OUTDOOR ADVERTISING LEASING AGENT Monitoring, Evaluation and Goals: 1. ENTERAL NUTRITION; PROVIDE ~80-100% ESTIMATED NUTRIENT NEEDS AT GOAL-NOT MET YET 2. ORAL INTAKE; ADVANCE DIET PER OUTDOOR ADVERTISING LEASING AGENT + TOLERATE W/NO C/O N/V/D (PO>50%)-NOT MET 3. LABS; WNL-ACTIVE 4. WEIGHTS; PROMOTE GRADUAL WEIGHT LOSS-ACTIVE MONITOR: [facility] Nutrition Therapy DATE: 02/27/17 Patient: JOSE G VILLA Physician: CAMERON Address: [address] [place] [address] Room/Bed: [facility], Zip: [place] [address] Admit Date: 02/20/17 Date of : [birth year] Height: 5 6 Weight: 210 95.5 -TF RATE/RESIDUALS -WEIGHTS -OUTDOOR ADVERTISING LEASING AGENT RE-EVAL -LABS Recommendations: 1. RECOMMEND TO INCREASE CURRENT ENTERAL NUTRITION SUPPORT OF GLUCERNA 1.5 TO GOAL RATE OF 55 ML/HR -PROVIDES 1980 KCAL, 109 G PRO, 1003 ML FREE H20 CONTINUE FREE H20 FLUSHES PER MD 2. ONCE MEDICALLY FEASIBLE, ADVANCE DIET PER OUTDOOR ADVERTISING LEASING AGENT RE-EVAL + CC+ MECHANICAL SOFT RD WILL F/U PER PROTOCOL PT IS MODERATELY COMPROMISED Respectfully, MINDY CHAN MS, RD, LD [employer] cc: client file
--- NOTE | ~2017-02-20 | CO ---
Unit #: [id number] #: [id number] Patient: JOSE G JACOB [id number] [facility] [address] [facility]. [place], [place] [address] [id number] I MR#: [id number] NAME: JOSE G JACOB ROOM: 315 Age: 51 Sex: F Admission Date: 02/20/2017 : 1965 Attending Physician: Radha Zepeda M.D. Primary Care Physician: Soren Mancera M.D. Consultation Date: 03/04/2017 CONSULTATION REPORT REASON FOR CONSULTATION Followup. DISCUSSION Ms. Jose G Jacob is a 51-year-old female seen in room 315, bed 1 at [facility] on 03/04/2017. The patient was cooperative, redirectable. No agitation, but mute. Able to follow commands but not answering any question. The patient's vital signs: Stable. 97.8, 89, 18, 161/87. Oxygen saturation: 97%. The patient did not show any agitation. Cooperative with physical therapy. The patient is not eating, not sleeping. Seemed catatonic, guarded, paranoid. Complete Review of Systems: Unremarkable. MENTAL STATUS EXAMINATION General Appearance: The patient dressed in hospital attire, receiving IV fluid. Attention span, concentration: Poor. Speech: The patient not talking. Orientation: Unable to assess. Mood and affect: Flat. Thought process: Unable to assess. Thought content: Guarded, paranoid. Attending to internal stimuli. Recent and remote memory: Poor. Language: Unable to assess. Fund of knowledge: Unable to assess. Insight and judgment: Impaired. DIAGNOSIS PSYCHIATRIC: Psychosis, F29.0. Bipolar mood disorder not otherwise specified, F31.89 ASSESSMENT/PLAN 1. Supportive psychotherapy, psychoeducation provided to the patient and family, but the patient unable to comprehend much. 2. Recommending at this time to continue with current regimen of Haldol and Zyprexa. We will continue to follow. If needed, consider further adjustment of medication. Once the patient is medically stable, consider placement at (1) __ Psych Unit. Please feel free to call if any question, telephone #[phone]. Dictated by... Paul Rboerts M.D. REGINO/josephine Unit #: [id number] #: [id number] Patient: JOSE G JACOB TD: 03/05/2017 09:19 JOB #: [id number] CONSULTATION REPORT Page 1 of 1 X Paul Roberts MD CONSULTATION REPORT
--- NOTE | ~2017-02-20 | OR ---
Unit #: [id number] #: [id number] Patient: JOSE G VILLA [id number] [address] [address] [id number] I MR#: [id number] NAME: JOSE G VILLA ROOM: [facility] Date of Procedure: 02/21/2017 Admission Date: 02/20/2017 Surgeon: Angela Camarillo M.D. : 1965 Attending Physician: Radha Zepdea M.D. Primary Care Physician: Soren Mancera M.D. PROCEDURE OPERATIVE NOTE PREPROCEDURE DIAGNOSIS Renal failure. POSTPROCEDURE DIAGNOSIS Renal failure. PROCEDURE PERFORMED Left-sided dialysis catheter placement. INDICATION Renal failure. DETAIL OF THE PROCEDURE After placing the patient in proper position, with ultrasound guidance, under all aseptic technique, the left side of the neck prepped with ChloraPrep and with modified Seldinger technique. A triple-lumen dialysis catheter placed in the left internal jugular vein. The guidewire was removed in total. All three ports flushed and working. No complication happened. A sterile dressing was applied. The line was secured with two interrupted sutures in place. A postprocedure chest x-ray was ordered. Dictated by... Ella Garcia TD: 02/21/2017 18:12 JOB #: [id number] PROCEDURE OPERATIVE NOTE Page 1 of 1 X Angela Camarillo MD PROCEDURE OPERATIVE NOTE
--- NOTE | ~2017-02-20 | A ---
[facility] Nutrition Therapy DATE: 02/21/17 Patient: JOSE G VILLA Physician: CAMERON Address: [address] [place] [address] Room/Bed: [address], Zip: [place] [address] Admit Date: 02/20/17 Date of : [birth year] Height: 5 6 Weight: 246 112 NUTRITIONAL ASSESSMENT: REASON: Intubated, NPO Admitting Dx: 51 y/o female admitted from [facility] due to SOA, angina. Found to be in acute respiratory failure + HCAP, ARDS. PMH: DM, gastroparesis, CKD, HTN, CHF, sarcoidosis, Bipolar disorder, suicide attempts Anthropometrics: Ht: 66", Wt: 112 kg (246 lbs), BMI: 37 (Stage II obese), IBW: 59.1 kg Past weights: 184-201 lbs (2015), 179-246 lbs (2017) Labs: K+ 6.9, Phos 5.3, Glucose 279, POC 182-318, A1C 14.3 (09/22/16), BUN 50, Creat 3.3, AST 80, ALT 69, GFR 17.7 Meds: Levophed, Fentanyl, Novolog (low SSI), PPI, Solu-medrol, Zofran, Propofol @ 25.4 ml/hr (providing 671 lipid kcals) I/O & Bowel function: LBM unknown, abdomen distended, NGT to LWS Skin Integrity: No issues, no edema Estimated Nutrition Needs: 4503-6308 kcals per day (15-20 kcals/kg ABW) 89-118 g protein per day (1.5-2.0 g/kg IBW) Fluids consistent with kcal needs or per MD Assessment: Chart reviewed, events noted. See admitting dx and PMH as stated above. Patient is intubated and sedated with Propofol currently providing 671 lipid kcals, no orders for EN as of yet. Patient scored 0 points on the malnutrition risk score. See past weights as stated above, patient is Stage II obese although I do question the accuracy of her current documented weight based on her past weights. RD previously assessed on 02/24/16 and 07/15/16 @ [facility] and [facility], patients weights at that time ranged from 180-190 lbs and she was eating well, consult at [facility] had stated the patient didn't have any teeth. During those previous admissions in 2016 she was on a gastroparesis diet and was educated on the diet, didn't appear to have ever had a mechanical soft restriction. See RD recs below, will follow hospital course. Dx: 1) Inadequate protein energy intake r/t nutrition not yet initiated AEB NPO, need for EN, receiving 37% estimated needs from Propofol kcals. 2) Stage II obese r/t hx, lifestyle, diet AEB BMI 37. [facility] Nutrition Therapy DATE: 02/21/17 Patient: JOSE G Martinez VILLA Physician: CAMERON Address: [address] [place] [address] Room/Bed: [address], Zip: [place] [address] Admit Date: 02/20/17 Date of : 63 Height: 5 6 Weight: 246 112 Intervention: EN recs as stated below, optimize insulin regimen Monitoring, Evaluation and Goals: 1. EN consistent with estimated nutrition needs. 2. Improvement in labs (Lytes, glucose, BUN, Creatinine, AST, ALT). 3. Promote regular GI function. 4. Once medically stable; Promote a gradual weight loss towards a healthy BMI range. Monitor: Per protocol, criteria to determine if above goals met Recommendations: 1. If patient is to remain intubated > 48 hours, begin enteral nutrition with Nepro formula once medically feasible. Goal rates based on sedation are as follows: WITH Propofol: Start at 20 ml/hr and increase to goal rate of 25 ml/hr after 4 hours. Please order 30 ml Prostat TID to be given per tube to meet protein needs. This nutrition regimen + kcals from Propofol (currently providing 671 lipid kcals) will provide 2051 kcals, 94 g protein and 438 ml water. Once at goal rate add free water flushes per MD. WITHOUT Propofol: Goal rate is 40 ml/hr + 30 ml daily Prostat, which will provide 1828 kcals, 93 g protein and 701 ml water. Free water per MD. 2. Optimize insulin regimen to promote adequate blood glucose control. Consider changing SSI to medium correction scale. 3. If the patient is extubated advance to consistent carb diet as tolerated. Add mechanical soft restriction if necessary depending on the patient's ability to chew. Suggest [employer] ARCHITECT eval if intubated for > [address] will follow hospital course Moderate-severe nutrition risk Respectfully, Jaymie Sauceda, MOLLY, LD Food and Nutritional Services [facility] [place] [place] [facility] Nutrition Therapy DATE: 02/21/17 Patient: JOSE G Martinez DASIY Physician: CAMERON Address: [address] [place] [address] Room/Bed: [address], Zip: [place] [address] Admit Date: 02/20/17 Date of : 63 Height: 5 6 Weight: 246 112 cc: client file
--- NOTE | ~2017-02-20 | CR72 ---
[facility] A Service of [facility] & [facility] RADIOLOGY TEXT RESULTS PATIENT: JOSE G VILLA LOCATION: [address] : [birth year] UNIT #: [id number] AGE: [address]: Radha Zepeda MD SEX: F ORDER DR: [id number] [facility] [address] [place], [place] [address] [id number] I MR#: [id number] Acc #: [id number] NAME: JOSE G VILLA. : 1965 SEX: F STUDY DATE/TIME: 02/22/2017 5:24 UNIT: [facility] ROOM: [facility] STUDY DESCRIPTION: CR Chest Single View Portable Attending Physician: Radha Zepeda M.D. Ordering Physician: Angela Camarillo M.D. Primary Care Physician: Soren Mancera M.D. MEDICAL IMAGING REPORT This report is preliminary unless electronic signature is present EXAM Portable chest INDICATIONS Shortness of air today. PROCEDURE Frontal view chest COMPARISON 02/21/2017 FINDINGS Heart size unchanged. ET tube is not significantly changed. Other support and monitoring devices and stable. Persistent bilateral opacity and low lung volumes. No visible pneumothorax. IMPRESSION Low lung volumes slightly increased. Otherwise stable chest with persistent bilateral opacity. Dictated by... Benny Rubin M.D. THIS IS AN ELECTRONICALLY VERIFIED REPORT Benny Rubin M.D. at 02/23/2017 9:42 AM CHRISTY/derrick TD: 02/22/2017 08:15 JOB #: [id number] MEDICAL IMAGING REPORT Page 1 of 1 COPY
--- NOTE | ~2017-02-20 | CO ---
Unit #: [id number] #: [id number] Patient: JOSE G VILLA [id number] [address] [address] [id number] I MR#: [id number] NAME: JOSE G VILLA ROOM: 633[address] Age: 51 Sex: F Admission Date: 02/20/2017 : 1965 Attending Physician: Radha Zepeda M.D. Primary Care Physician: Soren Mancera M.D. CONSULTATION REPORT REASON FOR CONSULTATION Critical care management, respiratory failure. REVIEW OF SYSTEMS Patient transferred from [facility] for healthcare-associated pneumonia and has been found to be hypoxic and in acute respiratory failure. I am seeing the patient at the bedside. Have intubated the patient with size 8 endotracheal tube. Currently on the ventilator, intubated, sedated. REVIEW OF SYSTEMS Unobtainable. PAST MEDICAL HISTORY 1. Gastroparesis. 2. Chronic kidney disease. 3. Neurogenic bladder. 4. Diabetes. 5. Hypertension. 6. Congestive heart failure, diastolic. 7. Chronic anticoagulation. 8. PE/DVT. 9. Sarcoidosis. 10. Bipolar disorder. SOCIAL HISTORY Ex-smoker. No alcohol. No drug abuse. FAMILY HISTORY None, as per records. MEDICATIONS As per MAR. Has been reviewed. ALLERGIES Have been reviewed. PHYSICAL EXAMINATION GENERAL: Intubated. Sedated. CVS: S1, S2. RESPIRATORY: Bilateral air entry. Bilateral mild rhonchi. GI: Nontender. Soft. Bowel sounds are positive. EXTREMITIES: No edema. SKIN: No rashes, no ulcer. Unit #: [id number] #: [id number] Patient: JOSE G VILLA LYMPHATIC: No lymphadenopathy. DIAGNOSTIC STUDIES Labs and imaging have been reviewed. ASSESSMENT 1. Acute hypoxic respiratory failure. 2. Bilateral pneumonia. 3. ARDS. 4. Healthcare-associated pneumonia. 5. Bipolar disorder. 6. COPD. 7. Sarcoidosis. 8. PE/DVT history. PLAN Plan is to continue ventilator support. GI and DVT prophylaxis. Oxygen. Bronchodilator. IV steroid. Repeat blood gas. The patient will be closely monitored. Total critical care time - 75 minutes in direct critical care of this patient. Dictated by... Angela Camarillo M.D. GISELL/weston TD: 02/20/2017 16:22 JOB #: [id number] CONSULTATION REPORT Page 1 of 1 X Angela Camarillo MD CONSULTATION REPORT
--- NOTE | ~2017-02-20 | CR72 ---
[facility] A Service of [facility] RADIOLOGY TEXT RESULTS PATIENT: JOSEG VILLA LOCATION: [place] [address] : [birth year] UNIT #: [id number] AGE: [address]: Radha Zepeda MD SEX: F ORDER DR: [id number] [facility] [address] [place], [place] [address] [id number] I MR#: [id number] Acc #: [id number] NAME: JOSE G VILLA. : 1965 SEX: F STUDY DATE/TIME: 02/28/2017 4:00 UNIT: [facility] ROOM: [facility] STUDY DESCRIPTION: CR Chest Single View Portable Attending Physician: Radha Zepeda M.D. Ordering Physician: Angela Camarillo M.D. Primary Care Physician: Soren Mancera M.D. MEDICAL IMAGING REPORT This report is preliminary unless electronic signature is present EXAM AP portable chest date 02/28/2017 at 0400 HISTORY Pneumonia. Respiratory failure. Congestive heart failure. COMPARISON AP portable chest 02/27/2017. FINDINGS Stable asymmetric elevation of the right hemidiaphragm. Right IJ central line, left IJ central line, NG tube appear unchanged. No visible pneumothorax. Ill-defined interstitial and alveolar infiltrates within both lungs, unchanged. Band-like atelectasis in the right lower lobe, unchanged. Stable mild cardiac enlargement. IMPRESSION 1. Ill-defined interstitial and alveolar infiltrates in both lungs with band-like right basilar atelectasis. 2. Stable supporting lines and tubes. No visible pneumothorax. 3. No significant change compared to 02/27/2017. Dictated by... Susie Mary M.D. THIS IS AN ELECTRONICALLY VERIFIED REPORT Susie Mary M.D. at 03/01/2017 4:19 AM REMI/kateryna TD: 02/28/2017 08:13 JOB #: [id number] [facility] A Service of [facility] RADIOLOGY TEXT RESULTS PATIENT: JOSE G VILLA LOCATION: [address] : [birth year] UNIT #: [id number] AGE: [address]: Radha Zepeda MD SEX: F ORDER DR: MEDICAL IMAGING REPORT Page 1 of 1 COPY
--- NOTE | ~2017-02-20 | FU ---
[facility] Nutrition Therapy DATE: 02/24/17 Patient: JOSE G VILLA Physician: CAMERON Address: [address] [place] [address] Room/Bed: [address], Zip: [place] [address] Admit Date: 02/20/17 Date of : [birth year] Height: 5 6 Weight: 249 113 NUTRITION MONITORING/FOLLOW-UP: Reason: PT SEEN FOR FOLLOW-UP/ENTERAL NUTRITION SUPPORT DX: SOA, ANGINA, ACUTE RESP FAILURE, HCAP & ARDS Anthropometrics: 5'6", WT: 249# (113 KG), BMI: 40.2 -WEIGHTS HAVE BEEN STABLE SINCE ADMIT Labs: GLU: 272, BUN: 47, CREAT: 2.1, CA+:7.7, ALB: 2.2, ALT: 45, TGs: 967, GFR: 30.6 Meds: FENTANYL, PROPOFOL, NOVOLOG, LIPITOR, NACL, PROTONIX, ZOFRAN, SOLU-MEDROL I&O's: 2309/2450 Skin: BILATERAL HANDS 1+ EDEMA; BILATERAL FEET 2+ EDEMA; FACE EDEMA Estimated Nutrition Needs: 2791-2732 KCAL 89-118 G PRO Assessment: CHART REVIEWED AND EVENTS NOTED. PT SEEN FOR FOLLOW-UP. PT CONTINUES TO BE INTUBATED AND SEDATED (PROPOFOL AT RATE OF 28.6 ML/HR PROVIDING ~755 KCAL FROM LIPIDS). OF NOTE, PT NPO X 4 DAYS, PT HAS NG TUBE TO LWS. PT SCHEDULED TO HAVE HD YESTERDAY BUT NO PLANS FOR HD TODAY. FAMILY IN ROOM REPORTED NO DIET QUESTIONS AT THIS TIME. RD TO CONTINUE TO FOLLOW. Dx: INADEQUATE PROTEIN ENERGY INTAKE R/T NUTRITION NOT YET INITIATED AEB NEED FOR EN.-ACTIVE STAGE II OBESE R/T LIFESTYLE, DIET AEB BMI OF 37.-ACTIVE Intervention: 1. NPO X 4 DAYS Monitoring, Evaluation and Goals: GOALS NOT MET 1. ENTERAL NUTRITION; PROVIDE ~80-100% ESTIMATED NEEDS AT 24 HOURS 2. ORAL INTAKE; ADVANCE DIET PER SHUTTLE FINAL INSPECTOR + TOLERATE W/NO C/O N/V/D (PO>50%) 3. LABS; WNL: GLU, ELECTROLYTES 4. WEIGHTS; PROMOTE GRADUAL WEIGHT LOSS MONITOR: -WEIGHTS -TF INITIATION -TF RATE/RESIDUALS [facility] Nutrition Therapy DATE: 02/24/17 Patient: JOSE G VILLA Physician: CAMERON Address: [address] [place] [address] Room/Bed: [address], Zip: [place] [address] Admit Date: 02/20/17 Date of : 63 Height: 5 6 Weight: 249 113 -LABS Recommendations: 1. ONCE MEDICALLY FEASIBLE, BEGIN ALTERNATIVE NUTRITION SUPPORT OF GLUCERNA 1.5 @ 20 ML/HR, ADVANCE 10 ML q 8 HOURS TO GOAL RATE OF 30 ML/HR + SUGAR-FREE PROSTAT TID + SEDATION -TOTAL PROVIDES 2135 KCAL, 104 G PRO, 547 ML FREE H20 ADD FREE H20 FLUSHES PER MD 2. ONCE PROPOFOL D/C'D, BEGIN ALTERNATIVE NUTRITION SUPPORT OF GLUCERNA 1.5 @ 20 ML/HR, ADVANCE 10 ML q 8 HOURS TO GOAL RATE OF 55 ML/HR -PROVIDES 1980 KCAL, 109 G PRO, 1003 ML FREE H20 ADD FREE H20 FLUSHES PER MD 3. ONCE PT EXTUBATED, ADVANCE DIET PER SHUTTLE FINAL INSPECTOR + CC+ MECHANICAL SOFT DIET RD WILL F/U PER PROTOCOL PT IS SEVERELY COMPROMISED Respectfully, MINDY CHAN MS, RD, LD Food and Nutritional Services [facility] cc: client file
--- NOTE | ~2017-02-20 | OR ---
Unit #: [id number] #: [id number] Patient: JOSE G VILLA [id number] [address] [place], [place] [address] [id number] I MR#: [id number] NAME: JOSE G VILLA. ROOM: [facility] Date of Procedure: 02/28/2017 Admission Date: 02/20/2017 Surgeon: Vic Styles M.D. : 1965 Attending Physician: Radha Zepeda M.D. Primary Care Physician: Soren Mancera M.D. OPERATIVE REPORT JOB NOTE: CC: PRIMARY CARE PHYSICIAN PROCEDURE PERFORMED Esophagogastroduodenoscopy to descending duodenum. INDICATIONS FOR PROCEDURE The patient presented with severe anemia. While in the ICU, aspirate, suggesting of possible bleeding, undergoing evaluation with upper endoscopy. MEDICATIONS Monitored anesthesia. POSTOPERATIVE FINDINGS 1. Stomach shows dark james-black aspirate, unlikely to be bleeding. No active bleeding, clots, or blood was seen. 2. Pacemaker lead seen in the stomach. 3. No varices or ulcers seen. 4. Duodenum and distal duodenum were normal. PLAN Continue to watch for H and H and transfuse as needed. We will get a CT of abdomen to rule out any retroperitoneal bleeding. DESCRIPTION OF PROCEDURE The patient was explained of the procedure, risks, and benefits along with risks and benefits of anesthesia. Endo Team was brought to the ICU. Monitored anesthesia was given. The scope was passed down the mouth into the esophagus, stomach, duodenum, and distal duodenum. A lot of dark james-black fluid in the stomach, which was aspirated, and no fresh blood or clots were seen. No sites of active bleeding were seen. The scope was gently pulled out. She tolerated it well. No major complications were seen. Dictated by... Ella Rodriguez/almaz TD: 02/28/2017 21:41 JOB #: [id number] Unit #: [id number] #: [id number] Patient: JOSE G VILLA OPERATIVE REPORT Page 1 of 1 X Vic Styles MD PROCEDURE OPERATIVE NOTE
--- NOTE | ~2017-02-20 | OR ---
Unit #: [id number] #: [id number] Patient: JOSE G VILLA [id number] [address] [place], [place] [address] [id number] I MR#: [id number] NAME: JOSE G VILLA ROOM: 583[address] Date of Procedure: 02/20/2017 Admission Date: 02/20/2017 Surgeon: Angela Camarillo M.D. : 1965 Attending Physician: Radha Zepeda M.D. Primary Care Physician: Soren Mancera M.D. PROCEDURE OPERATIVE NOTE PROCEDURE PERFORMED Endotracheal intubation. INDICATION FOR PROCEDURE Respiratory failure. PREPROCEDURE DIAGNOSIS Respiratory failure. POSTPROCEDURE DIAGNOSIS Respiratory failure. DETAILS OF PROCEDURE After placing the patient in appropriate position, with size 4 Mac laryngoscope, under direct visualization, a size 8 endotracheal tube was passed with direct visualization of the vocal cords. The patient tolerated the procedure very well. No complications happened. Good color change on End Tidal CO2 monitor. Postprocedure chest x-ray was ordered. Dictated by... Ella Garcia/weston TD: 02/20/2017 16:31 JOB #: [id number] PROCEDURE OPERATIVE NOTE Page 1 of 1 X Angela Camarillo MD PROCEDURE OPERATIVE NOTE
--- NOTE | ~2017-02-20 | EKG ---
PATIENT: JOSE G VILLA UNIT #: [id number] Ventricular Rate: 83 BPM Atrial Rate: 83 BPM P-R Interval: 138 ms QRS Duration: 84 ms Q-T Interval: 376 ms QTC Calculation(Bezet): 441 ms P [place]: 57 degrees Calculated R [place]: 18 degrees Calculated T [place]: 67 degrees Diagnosis Line: Normal sinus rhythm Diagnosis Line: Normal ECG Diagnosis Line: When compared with ECG of 22-FEB-2017 21:23, Diagnosis Line: Nonspecific T wave abnormality no longer evident Diagnosis Line: in Inferior leads Diagnosis Line: Nonspecific T wave abnormality, improved in Diagnosis Line: Lateral leads Diagnosis Line: QT has shortened Diagnosis Line: Confirmed by JULIA MCLAUGHLIN MD ([id number]) on 02/25/2017 Diagnosis Line: 10:44:00 PM INTERPRETING MD: LISSETTE SMITH
--- NOTE | ~2017-02-20 | CO ---
Unit #: [id number] #: [id number] Patient: JOSE G VILLA [id number] [address] [place], [place] [address] [id number] I MR#: [id number] NAME: JOSE G VILLA. ROOM: [facility] Age: 51 Sex: F Admission Date: 02/20/2017 : 1965 Attending Physician: Radha Zepeda M.D. Primary Care Physician: Soren Mancera M.D. Consultation Date: 02/22/2017 CONSULTATION REPORT REASON FOR CONSULTATION Elevated troponin, status post V-tach arrest. HISTORY OF PRESENT ILLNESS This is a 51-year-old female, who [facility] was [facility] due to complaints of increasing shortness of breath, chest pain, and cough. She was admitted with pneumonia. On initial admission, her lactic acid was found to be elevated as well as her BUN and creatinine. The patient does have chronic kidney disease. She was started on sepsis protocol, IV antibiotics. During the night last night. The patient went into sustained V-tach arrest, requiring CPR and defibrillation. She was also noted to have a troponin today of 0.91 or as her initial troponin was negative. EKG shows sinus tachycardia, low voltage with poor R-wave progression, QTc interval 557, cannot rule out previous anterior infarct. Cardiac rhythm strips were reviewed, it show no torsades. She is currently intubated and sedated on the ventilator. Her daughter is present at bedside. According to the nursing staff, the patient did receive urgent dialysis last evening which is new initiation of dialysis. At present, she is on low-dose Levophed drip. PAST MEDICAL HISTORY Positive for; 1. Hypertension. 2. Chronic kidney disease. 3. History of PE and DVT with IVC filter in the past, not currently on anticoagulation. 4. GERD. 5. Bipolar disorder. 6. Anxiety. 7. Depression. 8. Asthma. 9. Sarcoidosis. 10. COPD. 11. History of V-tach in the past. 12. Obstructive sleep apnea. PAST SURGICAL HISTORY 1. Appendectomy. 2. Hysterectomy. 3. Cholecystectomy. 4. Dilation of esophagus in the past. 5. Gastric stimulator placement and removal. Unit #: [id number] #: [id number] Patient: JOSE G VILLA SOCIAL HISTORY The patient lives at home. Daughter confirms, she does not smoke, use drugs, or drink alcohol. FAMILY HISTORY No known family history for coronary artery disease. ALLERGIES Penicillin, Reglan, Procardia, and codeine. HOME MEDICATIONS Seroquel 100 mg p.o. q.h.s., Lipitor 10 mg p.o. q.h.s., hydralazine 50 mg p.o. t.i.d., Prozac 60 mg p.o. daily, Emend 40 mg p.o. daily, Aldactone 100 mg p.o. daily, Deltasone 20 mg p.o. daily, Normodyne 100 mg p.o. b.i.d., Levemir 42 units subcu b.i.d., Neurontin 1200 mg p.o. t.i.d., ferrous gluconate 324 mg p.o. daily, Colace 100 mg p.o. daily, Depakote 100 mg p.o. b.i.d., Bentyl 20 mg p.o. t.i.d., Protonix 40 mg p.o. daily, NovoLog 18 units subcu t.i.d., Ventolin 2 puffs inhalation q.4 hours. REVIEW OF SYSTEMS Unable to be obtained secondary to the patient's intubated and sedated on a ventilator. PHYSICAL EXAMINATION GENERAL: This is a 51-year-old female, who is currently intubated on the ventilator. VITAL SIGNS: Temperature 99.0, respiratory rate is 28, pulse 119, blood pressure 132/87, BMI is 37. HEENT: Head is atraumatic and normocephalic. Pupils are equal and round. NECK: Trachea is midline. No JVD. No carotid bruits. No lymphadenopathy or thyromegaly. HEART: S1, S2. Slightly tachycardic. No murmur, gallop, or rub. LUNGS: Scattered rhonchi. ABDOMEN: Obese, pannus, soft, nontender, nondistended. Dobbhoff tube is in place. EXTREMITIES: Trace bilateral lower extremity edema. No clubbing or cyanosis. DIAGNOSTIC STUDIES IMAGING STUDIES: Chest x-ray shows low lung volumes, otherwise stable with persistent bilateral opacity. CARDIOVASCULAR STUDIES: EKG shows sinus tachycardia, poor R-wave progression, low voltage QTc of 557 msec, cannot rule out previous anterior infarct, QTc interval of 557 msec. IMPRESSION 1. Acute respiratory failure with hypoxia. 2. Pneumonia. 3. Sepsis. 4. Hyperkalemia. 5. Status post ventricular tachycardia arrest with return of spontaneous circulation after cardiopulmonary resuscitation and defibrillation x1. 6. Probable non-ST segment myocardial infarction, troponin of 0.91. 7. Acute on chronic kidney disease with newly initiation of hemodialysis, first treatment was yesterday. 8. History of hypertension. 9. History of diastolic heart failure. Unit #: [id number] #: [id number] Patient: JOSE G VILLA 10. History of deep vein thrombosis and pulmonary embolism with inferior vena cava filter. Currently not on any anticoagulation. 11. History of sarcoidosis. 12. History of neurogenic bladder. 13. Diabetes. 14. Bipolar disorder. PLAN We have been asked to see the patient secondary to ventricular tachycardia arrest and elevated troponin of 0.91. At present, her cardiac rhythm is stable. We will check 2D echocardiogram to assess LV systolic function as well as evaluate for any valvular abnormalities. She is currently on heparin and aspirin as well as topical nitrates. At present, she is on very low-dose Levophed. The nurse has been given orders to attempt to wean it off. The patient should receive beta blockers if her blood pressure allows. We will also add high-dose statin therapy. Trend cardiac enzymes with parameters to call if troponin is greater than 0.5. She will also have fasting lipid panel, blood and lab. EKGs are to be done with each set of cardiac enzymes. The patient will have CBC, BMP, Mag, and TSH in the a.m. At present, she is not a candidate for KO or ARB secondary to her renal dysfunction. The patient will most likely need cardiac catheterization when stable to evaluate coronary anatomy. All of this has been discussed with the daughter. Further recommendations pending Dr. Tucker's assessment. Dictated by... Zulma Kelley A.P.R.N. for Aixa Tucker M.D. LMW/modl TD: 02/23/2017 01:42 JOB #: [id number] CONSULTATION REPORT Page 1 of 1 X Zulma Kelley APRN CONSULTATION REPORT
--- NOTE | ~2017-02-20 | CO ---
Unit #: [id number] #: [id number] Patient: JOSE G JACOB [id number] [address] [place], [place] [address] [id number] I MR#: [id number] NAME: JOSE G JACOB ROOM: 315 Age: 51 Sex: F Admission Date: 02/20/2017 : 1965 Attending Physician: Radha Zepeda M.D. Primary Care Physician: Soren Mancera M.D. Consultation Date: 03/05/2017 CONSULTATION REPORT REASON FOR CONSULTATION Followup. DISCUSSION Ms. Jose G Jacob is a 51-year-old female, seen in room 315, bed 1 on 03/05/2017. The patient is tolerating medication fairly well, compliant, cooperative, redirectable, able to talk slowly in simple sentences. The patient denied any hallucination, tolerating medication fairly well, no side effects from medication. Vital signs, temperature 99.0, pulse 87, respiratory rate 18, blood pressure 150/96, oxygen saturation 96%. The patient is still having some difficulty in taking medication, but overall making progress. REVIEW OF SYSTEMS Complete review of systems unremarkable. MENTAL STATUS EXAMINATION Vital signs, please see above. General appearance, the patient dressed in hospital attire, compliant and cooperative but according to the nurses not eating, noncompliant. Attention span and concentration, poor. Speech, minimal. Orientation in self and place. Mood and affect, flat. Thought process, circumstantial. Thought content, guarded, denied any hallucination or any thoughts of harming self or others. Recent and remote memory, poor. Language, poor. Fund of knowledge, poor. Insight and judgment, impaired. DIAGNOSES Psychiatric: Bipolar mood disorder, not otherwise specified, F31.89; psychosis, not otherwise specified, F29.0; delirium, F05, resolved. ASSESSMENT/PLAN 1. Supportive psychotherapy and psychoeducation provided to the patient. 2. Educated about benefits and side effects of medication and course and prognosis of illness. 3. Advised to continue with current medication at this time. If needed, consider further adjustment of medication. Please feel free to call if any questions, telephone #[phone]. Dictated by... Paul Roberts M.D. REGINO/almaz Unit #: [id number] #: [id number] Patient: DAISYJOSE G Martinez TD: 03/05/2017 23:53 JOB #: [id number] CONSULTATION REPORT Page 1 of 1 X Paul Roberts MD CONSULTATION REPORT
[2017-02-20 04:45] LABS: POC - CKMB 5.6 ng/mL (0.0-7.9); POC - TROPONIN <0.05 ng/mL (<=0.05)
[2017-02-20 05:21] LABS: BASOPHIL% 0.3 % (0-2.5); EOSINOPHIL# 0.1 X10e3 (0-0.7); EOSINOPHIL% 0.8 % (0.0-7.0); HEMOGLOBIN 9.8 gm/dL (12.0-16.0); LYMPHOCYTE# 0.8 X10e3 (1.0-3.5); LYMPHOCYTE% 9.1 % (17.0-45.0); MEAN CELL VOLUME 82.5 FL (83-96); MEAN CORPUSCULAR HEMOGLOBIN 26.8 PG (28-34); MEAN CORPUSCULAR HGB CONC 32.5 g/dL (30-36); MEAN PLATELET VOLUME 7.7 FL (6.5-11.5); MONOCYTE# 0.8 X10e3 (0-1.0); MONOCYTE% 9.1 % (3.0-12.0); NEUTROPHIL# 7.5 X10e3 (1.5-7.1); NEUTROPHIL% 80.7 % (40-75); PLATELET COUNT 302 X10e3 (140-420); RED BLOOD COUNT 3.64 X10e (3.90-5.30); RED CELL DISTRIBUTION WIDTH 17.8 % (11.0-15.5); WHITE BLOOD COUNT 9.3 X10e3 (4.0-10.5)
[2017-02-20 05:24] LABS: DIFF IND NO
[~2017-02-20 05:28] MED LIST changes: +DEPAKOTE PO; +EMEND40 MG PO; +FERROUS GLUCON324 M2 PO; +NORMODYNE100 M1 PO; +SEROQUEL100 MG PO
[2017-02-20 05:30] LABS: INFLUENZA A NEG (NEG); INFLUENZA B NEG (NEG)
[2017-02-20 06:20] LABS: ALBUMIN SERUM 3.5 g/dL (3.5-5.0); ALKALINE PHOSPHATASE 139 U/L (32-92); ALT (SGPT) 37 U/L (10-40); AST (SGOT) 70 U/L (10-42); BILIRUBIN, DIRECT <0.1 mg/dL (0.0-0.2); BILIRUBIN,INDIRECT 0.3 mg/dL (0.0-0.9); BILIRUBIN,TOTAL 0.4 mg/dL (0.2-2.0); BLOOD UREA NITROGEN 29 mg/dL (9-23); BUN/CREATININE RATIO 16.11; CALCIUM SERUM 9.1 mg/dL (8.4-10.2); CARBON DIOXIDE 25 mmol/L (22-31); CHLORIDE 107 mmol/L (100-111); CREATININE SERUM 1.8 mg/dL (0.6-1.4); GLOM FILT RATE Estimated 36.9 mL/min (>60); GLUCOSE FASTING 172 mg/dL (70-110); POTASSIUM 4.5 mmol/L (3.5-5.1); PROTEIN TOTAL SERUM 7.6 g/dL (6.0-8.3); SODIUM 144 mmol/L (135-145)
[2017-02-20 07:27] LABS: POC - CKMB 2.9 ng/mL (0.0-7.9); POC - TROPONIN <0.05 ng/mL (<=0.05)
[2017-02-20 10:19] LABS: ARTERIAL BLD GAS O2 SATURATION 89.4 % (90.0-100.0); ARTERIAL BLOOD GAS CARBOXY HB 1.1 %sat (0.0-9.0); ARTERIAL BLOOD GAS HCO3 22.4 mmol/L; ARTERIAL BLOOD GAS PCO2 39.3 mmHg (35.0-45.0); ARTERIAL BLOOD GAS pH 7.364 (7.350-7.450)
[2017-02-20 10:20] LABS: ARTERIAL BLOOD GAS ALLEN TEST NORMAL; ARTERIAL BLOOD GAS ART SITE RIGHT RADIAL; ARTERIAL BLOOD GAS DELIVERY NASAL CANNULA; ARTERIAL BLOOD GAS PO2 64.9 mmHg (80.0-100); ARTERIAL DRAW? YES
[2017-02-20 13:31] LABS: URINE SOURCE CLEAN CATCH
[2017-02-20 13:38] LABS: URINE APPEARANCE CLEAR; URINE BILIRUBIN NEG (NEG); URINE BLOOD NEG (NEG); URINE COLOR YELLOW; URINE GLUCOSE 250 MG/DL (NEG); URINE KETONE NEG (NEG); URINE LEUKOCYTE ESTERASE NEG (NEG); URINE NITRATE NEG (NEG); URINE PH 7.5 (5-8); URINE PROTEIN TRACE (NEG); URINE SPECIFIC GRAVITY 1.014 (1.003-1.035); URINE UROBILINOGEN 0.2 MG/DL (NEG)
[2017-02-20 13:41] LABS: CULTURE INDICATED? NO
[2017-02-20 13:48] LABS: AMPHETAMINE NEG (NEG); BARBITURATES NEG (NEG); BENZODIAZEPINES NEG (NEG); COCAINE NEG (NEG); MARIJUANA NEG (NEG); OPIATES POS (NEG); TRICYCLIC ANTIDEPRESSANTS POS (NEG); U METHADONE NEG (NEG)
[2017-02-20 14:06] LABS: LEGIONELLA AG URINE NEG (NEG)
[2017-02-20 16:54] LABS: ARTERIAL BLD GAS O2 SATURATION 96.7 % (90.0-100.0); ARTERIAL BLOOD GAS CARBOXY HB 0.8 %sat (0.0-9.0); ARTERIAL BLOOD GAS HCO3 22.7 mmol/L; ARTERIAL BLOOD GAS MET HB 0.8 %sat (0.0-2.0); ARTERIAL BLOOD GAS PCO2 48.2 mmHg (35.0-45.0); ARTERIAL BLOOD GAS pH 7.281 (7.350-7.450)
[2017-02-20 16:57] LABS: ARTERIAL BLOOD GAS ALLEN TEST NORMAL; ARTERIAL BLOOD GAS ART SITE RIGHT RADIAL; ARTERIAL BLOOD GAS VENT MODE A/C; ARTERIAL DRAW? YES
[2017-02-21 04:32] LABS: BASOPHIL% 0.1 % (0-2.5); HEMATOCRIT 25.1 % (35.0-45.0); HEMOGLOBIN 8.2 gm/dL (12.0-16.0); LYMPHOCYTE# 0.6 X10e3 (1.0-3.5); MEAN CELL VOLUME 83.9 FL (83-96); MEAN CORPUSCULAR HEMOGLOBIN 27.3 PG (28-34); MEAN CORPUSCULAR HGB CONC 32.5 g/dL (30-36); MEAN PLATELET VOLUME 7.5 FL (6.5-11.5); MONOCYTE# 0.7 X10e3 (0-1.0); MONOCYTE% 4.9 % (3.0-12.0); NEUTROPHIL# 12.7 X10e3 (1.5-7.1); PLATELET COUNT 215 X10e3 (140-420); RED BLOOD COUNT 2.99 X10e (3.90-5.30); RED CELL DISTRIBUTION WIDTH 17.7 % (11.0-15.5); WHITE BLOOD COUNT 13.9 X10e3 (4.0-10.5)
[2017-02-21 04:34] LABS: DIFF IND NO
[2017-02-21 04:52] LABS: ARTERIAL BLD GAS O2 SATURATION 94.7 % (90.0-100.0); ARTERIAL BLOOD GAS CARBOXY HB 1.2 %sat (0.0-9.0); ARTERIAL BLOOD GAS HCO3 20.8 mmol/L; ARTERIAL BLOOD GAS MET HB 0.9 %sat (0.0-2.0); ARTERIAL BLOOD GAS PO2 95.9 mmHg (80.0-100); ARTERIAL BLOOD GAS pH 7.222 (7.350-7.450)
[2017-02-21 05:02] LABS: ARTERIAL BLOOD GAS PCO2 50.8 mmHg (35.0-45.0)
[2017-02-21 05:03] LABS: ARTERIAL BLOOD GAS ALLEN TEST NORMAL; ARTERIAL BLOOD GAS ART SITE LEFT RADIAL; ARTERIAL BLOOD GAS DELIVERY VENT; ARTERIAL BLOOD GAS VENT MODE AC; ARTERIAL DRAW? YES
[2017-02-21 05:39] LABS: ALBUMIN SERUM 2.5 g/dL (3.5-5.0); BILIRUBIN,TOTAL 0.4 mg/dL (0.2-2.0); BUN/CREATININE RATIO 15.15; CREATININE SERUM 3.3 mg/dL (0.6-1.4); GLOM FILT RATE Estimated 17.7 mL/min (>60); MAGNESIUM 2.1 mg/dL (1.6-3.0); PHOSPHOROUS 5.3 mg/dL (2.5-4.6); PROTEIN TOTAL SERUM 5.7 g/dL (6.0-8.3)
[2017-02-21 05:42] LABS: POTASSIUM 6.9 mmol/L (3.5-5.1)
[2017-02-21 16:08] LABS: BODY FLUID SOURCE BRONCHIAL LAVAGE
[2017-02-21 16:09] LABS: BF TOTAL NUCLEATED CELL COUNT 2229 CMM (0-100); BODY FLUID APPEARANCE TURBID; BODY FLUID RBC <10000 CMM
[2017-02-22 03:56] LABS: HEMATOCRIT 29.1 % (35.0-45.0); HEMOGLOBIN 9.9 gm/dL (12.0-16.0); MEAN CELL VOLUME 83.8 FL (83-96); MEAN CORPUSCULAR HEMOGLOBIN 28.6 PG (28-34); MEAN CORPUSCULAR HGB CONC 34.1 g/dL (30-36); MEAN PLATELET VOLUME 7.8 FL (6.5-11.5); RED BLOOD COUNT 3.47 X10e (3.90-5.30); RED CELL DISTRIBUTION WIDTH 17.3 % (11.0-15.5)
[2017-02-22 03:56] LABS: ARTERIAL BLD GAS O2 SATURATION 89.2 % (90.0-100.0); ARTERIAL BLOOD GAS CARBOXY HB 0.6 %sat (0.0-9.0); ARTERIAL BLOOD GAS HCO3 19.1 mmol/L
[2017-02-22 03:59] LABS: ARTERIAL BLOOD GAS PCO2 66.8 mmHg (35.0-45.0); ARTERIAL BLOOD GAS PO2 76.4 mmHg (80.0-100); ARTERIAL BLOOD GAS pH 7.064 (7.350-7.450)
[2017-02-22 04:00] LABS: ARTERIAL BLOOD GAS ALLEN TEST NORMAL; ARTERIAL BLOOD GAS ART SITE LEFT RADIAL; ARTERIAL BLOOD GAS DELIVERY VENT; ARTERIAL BLOOD GAS VENT MODE AC; ARTERIAL DRAW? YES
[2017-02-22 04:18] LABS: ALBUMIN SERUM 2.7 g/dL (3.5-5.0); BILIRUBIN,TOTAL 0.6 mg/dL (0.2-2.0); BUN/CREATININE RATIO 12.05; CALCIUM SERUM 7.5 mg/dL (8.4-10.2); CREATININE SERUM 3.4 mg/dL (0.6-1.4); GLOM FILT RATE Estimated 17.1 mL/min (>60); PROTEIN TOTAL SERUM 6.4 g/dL (6.0-8.3)
[2017-02-22 04:19] LABS: POTASSIUM 5.8 mmol/L (3.5-5.1)
[2017-02-22 04:58] LABS: %MB 3.2 % (0.0-4.0); MB 15.7 ng/ml
[2017-02-22 06:15] LABS: ARTERIAL BLD GAS O2 SATURATION 97.7 % (90.0-100.0); ARTERIAL BLOOD GAS CARBOXY HB 0.6 %sat (0.0-9.0); ARTERIAL BLOOD GAS HCO3 17.9 mmol/L; ARTERIAL BLOOD GAS MET HB 1.2 %sat (0.0-2.0); ARTERIAL BLOOD GAS PCO2 37.4 mmHg (35.0-45.0); ARTERIAL BLOOD GAS pH 7.289 (7.350-7.450)
[2017-02-22 06:16] LABS: ARTERIAL BLOOD GAS ART SITE RIGHT RADIAL; ARTERIAL BLOOD GAS DELIVERY VENT; ARTERIAL BLOOD GAS VENT MODE AC; ARTERIAL DRAW? YES
[2017-02-22 10:10] LABS: CHOLESTEROL 165 mg/dL (0-200); HDL CHOLESTEROL 24 mg/dL (35-95)
[2017-02-22 10:11] LABS: TRIGLYCERIDES 967 mg/dL (10-160)
[2017-02-22 10:55] LABS: %MB 3.1 % (0.0-4.0); MB 13.6 ng/ml
[2017-02-22 17:47] LABS: %MB 2.7 % (0.0-4.0); MB 11.3 ng/ml
[2017-02-22 23:50] LABS: %MB 2.9 % (0.0-4.0); MB 11.3 ng/ml
[2017-02-23 04:15] LABS: HEMATOCRIT 21.4 % (35.0-45.0); MEAN CORPUSCULAR HEMOGLOBIN 27.3 PG (28-34); MEAN CORPUSCULAR HGB CONC 34.3 g/dL (30-36); MEAN PLATELET VOLUME 7.9 FL (6.5-11.5); RED BLOOD COUNT 2.69 X10e (3.90-5.30); RED CELL DISTRIBUTION WIDTH 17.6 % (11.0-15.5)
[2017-02-23 04:22] LABS: HEMOGLOBIN 7.3 gm/dL (12.0-16.0); MEAN CELL VOLUME 79.6 FL (83-96); WHITE BLOOD COUNT 10.4 X10e3 (4.0-10.5)
[2017-02-23 04:41] LABS: ALBUMIN SERUM 2.2 g/dL (3.5-5.0); BILIRUBIN,TOTAL 0.4 mg/dL (0.2-2.0); BUN/CREATININE RATIO 14.44; CALCIUM SERUM 6.9 mg/dL (8.4-10.2); CREATININE SERUM 1.8 mg/dL (0.6-1.4); GLOM FILT RATE Estimated 36.9 mL/min (>60); MAGNESIUM 1.9 mg/dL (1.6-3.0); POTASSIUM 3.6 mmol/L (3.5-5.1); PROTEIN TOTAL SERUM 6.2 g/dL (6.0-8.3)
[2017-02-23 04:57] LABS: ARTERIAL BLD GAS O2 SATURATION 93.9 % (90.0-100.0); ARTERIAL BLOOD GAS CARBOXY HB 0.5 %sat (0.0-9.0); ARTERIAL BLOOD GAS HCO3 26.7 mmol/L; ARTERIAL BLOOD GAS MET HB 0.7 %sat (0.0-2.0); ARTERIAL BLOOD GAS PCO2 32.8 mmHg (35.0-45.0); ARTERIAL BLOOD GAS pH 7.518 (7.350-7.450)
[2017-02-23 05:00] LABS: %MB 2.8 % (0.0-4.0); MB 10.2 ng/ml
[2017-02-23 05:13] LABS: ARTERIAL BLOOD GAS ALLEN TEST NORMAL; ARTERIAL BLOOD GAS ART SITE RIGHT RADIAL; ARTERIAL BLOOD GAS PO2 72.5 mmHg (80.0-100); ARTERIAL BLOOD GAS VENT MODE AC; ARTERIAL DRAW? YES
[2017-02-24 04:15] LABS: ARTERIAL BLD GAS O2 SATURATION 97.3 % (90.0-100.0); ARTERIAL BLOOD GAS CARBOXY HB 0.7 %sat (0.0-9.0); ARTERIAL BLOOD GAS MET HB 0.8 %sat (0.0-2.0); ARTERIAL BLOOD GAS PCO2 28.7 mmHg (35.0-45.0); ARTERIAL BLOOD GAS PO2 97.4 mmHg (80.0-100); ARTERIAL BLOOD GAS pH 7.565 (7.350-7.450)
[2017-02-24 04:57] LABS: ARTERIAL BLOOD GAS ALLEN TEST NORMAL; ARTERIAL BLOOD GAS ART SITE LEFT RADIAL; ARTERIAL BLOOD GAS DELIVERY VENT; ARTERIAL DRAW? YES
[2017-02-24 04:58] LABS: ARTERIAL BLOOD GAS VENT MODE AC
[2017-02-24 04:59] LABS: BASOPHIL% 0.2 % (0-2.5); HEMOGLOBIN 8.4 gm/dL (12.0-16.0); LYMPHOCYTE# 1.5 X10e3 (1.0-3.5); MEAN CELL VOLUME 80.8 FL (83-96); MEAN CORPUSCULAR HEMOGLOBIN 27.1 PG (28-34); MEAN CORPUSCULAR HGB CONC 33.5 g/dL (30-36); MEAN PLATELET VOLUME 8.1 FL (6.5-11.5); MONOCYTE# 1.1 X10e3 (0-1.0); MONOCYTE% 9.2 % (3.0-12.0); NEUTROPHIL# 8.9 X10e3 (1.5-7.1); NEUTROPHIL% 77.6 % (40-75); PLATELET COUNT 252 X10e3 (140-420); RED BLOOD COUNT 3.09 X10e (3.90-5.30); RED CELL DISTRIBUTION WIDTH 17.3 % (11.0-15.5); WHITE BLOOD COUNT 11.5 X10e3 (4.0-10.5)
[2017-02-24 05:01] LABS: DIFF IND YES
[2017-02-24 06:40] LABS: ALBUMIN SERUM 2.2 g/dL (3.5-5.0); BILIRUBIN,TOTAL 0.5 mg/dL (0.2-2.0); BUN/CREATININE RATIO 22.38; CALCIUM SERUM 7.7 mg/dL (8.4-10.2); CREATININE SERUM 2.1 mg/dL (0.6-1.4); GLOM FILT RATE Estimated 30.6 mL/min (>60); MAGNESIUM 2.2 mg/dL (1.6-3.0); PHOSPHOROUS 4.2 mg/dL (2.5-4.6); POTASSIUM 3.8 mmol/L (3.5-5.1)
[2017-02-24 07:31] LABS: ANISOCYTOSIS SL
[2017-02-24 07:32] LABS: BURR CELLS PRESENT; POIKILOCYTOSIS SL
[2017-02-24 07:36] LABS: PLATELET ESTIMATE NORMAL (NORMAL)
[2017-02-24 08:11] LABS: NUCLEATED RED BLOOD CELL 4 /100 (0)
[2017-02-25 04:04] LABS: BASOPHIL# 0.1 X10e3 (0-0.3); BASOPHIL% 0.3 % (0-2.5); HEMATOCRIT 26.3 % (35.0-45.0); HEMOGLOBIN 8.7 gm/dL (12.0-16.0); LYMPHOCYTE# 1.6 X10e3 (1.0-3.5); LYMPHOCYTE% 10.2 % (17.0-45.0); MEAN CELL VOLUME 81.3 FL (83-96); MEAN CORPUSCULAR HGB CONC 33.2 g/dL (30-36); MEAN PLATELET VOLUME 8.1 FL (6.5-11.5); MONOCYTE# 1.5 X10e3 (0-1.0); MONOCYTE% 9.2 % (3.0-12.0); NEUTROPHIL# 12.7 X10e3 (1.5-7.1); NEUTROPHIL% 80.3 % (40-75); PLATELET COUNT 279 X10e3 (140-420); RED BLOOD COUNT 3.23 X10e (3.90-5.30); RED CELL DISTRIBUTION WIDTH 17.6 % (11.0-15.5); WHITE BLOOD COUNT 15.8 X10e3 (4.0-10.5)
[2017-02-25 04:05] LABS: DIFF IND YES
[2017-02-25 04:23] LABS: ALBUMIN SERUM 2.6 g/dL (3.5-5.0); BILIRUBIN,TOTAL 0.6 mg/dL (0.2-2.0); BUN/CREATININE RATIO 28.26; CALCIUM SERUM 7.6 mg/dL (8.4-10.2); CREATININE SERUM 2.3 mg/dL (0.6-1.4); GLOM FILT RATE Estimated 27.4 mL/min (>60); HYPOCHROMIA MOD; MAGNESIUM 2.2 mg/dL (1.6-3.0); NUCLEATED RED BLOOD CELL 4 /100 (0); PHOSPHOROUS 5.1 mg/dL (2.5-4.6); PLATELET ESTIMATE NORMAL (NORMAL); POTASSIUM 3.8 mmol/L (3.5-5.1); PROTEIN TOTAL SERUM 6.9 g/dL (6.0-8.3)
[2017-02-25 04:55] LABS: ARTERIAL BLD GAS O2 SATURATION 97.1 % (90.0-100.0); ARTERIAL BLOOD GAS CARBOXY HB 0.7 %sat (0.0-9.0); ARTERIAL BLOOD GAS HCO3 28.3 mmol/L; ARTERIAL BLOOD GAS MET HB 0.9 %sat (0.0-2.0); ARTERIAL BLOOD GAS pH 7.516 (7.350-7.450)
[2017-02-25 04:59] LABS: ARTERIAL BLOOD GAS ALLEN TEST NORMAL; ARTERIAL BLOOD GAS ART SITE RIGHT RADIAL; ARTERIAL BLOOD GAS DELIVERY VENT; ARTERIAL BLOOD GAS VENT MODE AC; ARTERIAL DRAW? YES
[2017-02-25 17:13] LABS: ARTERIAL BLD GAS O2 SATURATION 95.7 % (90.0-100.0); ARTERIAL BLOOD GAS ART SITE RIGHT RADIAL; ARTERIAL BLOOD GAS CARBOXY HB 0.7 %sat (0.0-9.0); ARTERIAL BLOOD GAS HCO3 28.4 mmol/L; ARTERIAL BLOOD GAS MET HB 0.7 %sat (0.0-2.0); ARTERIAL BLOOD GAS PCO2 45.2 mmHg (35.0-45.0); ARTERIAL BLOOD GAS PO2 94.9 mmHg (80.0-100); ARTERIAL BLOOD GAS pH 7.406 (7.350-7.450); ARTERIAL DRAW? YES
[2017-02-25 17:14] LABS: ARTERIAL BLOOD GAS DELIVERY VENT; ARTERIAL BLOOD GAS VENT MODE CPAP
[2017-02-26 03:50] LABS: ARTERIAL BLD GAS O2 SATURATION 92.9 % (90.0-100.0); ARTERIAL BLOOD GAS HCO3 35.6 mmol/L; ARTERIAL BLOOD GAS MET HB 0.8 %sat (0.0-2.0); ARTERIAL BLOOD GAS PCO2 42.9 mmHg (35.0-45.0); ARTERIAL BLOOD GAS pH 7.528 (7.350-7.450)
[2017-02-26 03:51] LABS: BASOPHIL# 0.1 X10e3 (0-0.3); BASOPHIL% 0.5 % (0-2.5); DIFF IND NO; HEMATOCRIT 30.3 % (35.0-45.0); LYMPHOCYTE# 1.8 X10e3 (1.0-3.5); LYMPHOCYTE% 8.4 % (17.0-45.0); MEAN CELL VOLUME 80.7 FL (83-96); MEAN CORPUSCULAR HEMOGLOBIN 26.7 PG (28-34); MEAN PLATELET VOLUME 7.9 FL (6.5-11.5); MONOCYTE% 4.9 % (3.0-12.0); NEUTROPHIL# 18.3 X10e3 (1.5-7.1); NEUTROPHIL% 86.2 % (40-75); PLATELET COUNT 312 X10e3 (140-420); RED BLOOD COUNT 3.75 X10e (3.90-5.30); RED CELL DISTRIBUTION WIDTH 16.9 % (11.0-15.5); WHITE BLOOD COUNT 21.2 X10e3 (4.0-10.5)
[2017-02-26 03:57] LABS: ARTERIAL BLOOD GAS ALLEN TEST NORMAL; ARTERIAL BLOOD GAS ART SITE RIGHT RADIAL; ARTERIAL BLOOD GAS PO2 68.8 mmHg (80.0-100); ARTERIAL DRAW? YES
[2017-02-26 03:58] LABS: ARTERIAL BLOOD GAS DELIVERY NASAL CANNULA
[2017-02-26 04:37] LABS: ALBUMIN SERUM 2.9 g/dL (3.5-5.0); BILIRUBIN,TOTAL 0.6 mg/dL (0.2-2.0); BUN/CREATININE RATIO 33.18; CALCIUM SERUM 8.3 mg/dL (8.4-10.2); CREATININE SERUM 2.2 mg/dL (0.6-1.4); GLOM FILT RATE Estimated 28.9 mL/min (>60); PHOSPHOROUS 3.6 mg/dL (2.5-4.6); POTASSIUM 3.3 mmol/L (3.5-5.1); PROTEIN TOTAL SERUM 7.6 g/dL (6.0-8.3)
[2017-02-27 04:19] LABS: ARTERIAL BLD GAS O2 SATURATION 89.5 % (90.0-100.0); ARTERIAL BLOOD GAS CARBOXY HB 1.2 %sat (0.0-9.0); ARTERIAL BLOOD GAS HCO3 40.2 mmol/L; ARTERIAL BLOOD GAS MET HB 0.5 %sat (0.0-2.0); ARTERIAL BLOOD GAS PCO2 49.6 mmHg (35.0-45.0); ARTERIAL BLOOD GAS pH 7.517 (7.350-7.450)
[2017-02-27 04:26] LABS: ARTERIAL BLOOD GAS ALLEN TEST NORMAL; ARTERIAL BLOOD GAS ART SITE LEFT RADIAL; ARTERIAL BLOOD GAS DELIVERY NASAL CANNULA; ARTERIAL BLOOD GAS PO2 57.9 mmHg (80.0-100); ARTERIAL DRAW? YES
[2017-02-27 04:49] LABS: BASOPHIL# 0.1 X10e3 (0-0.3); BASOPHIL% 0.5 % (0-2.5); EOSINOPHIL# 0.1 X10e3 (0-0.7); EOSINOPHIL% 0.4 % (0.0-7.0); HEMATOCRIT 25.3 % (35.0-45.0); HEMOGLOBIN 8.2 gm/dL (12.0-16.0); LYMPHOCYTE# 2.4 X10e3 (1.0-3.5); LYMPHOCYTE% 13.6 % (17.0-45.0); MEAN CELL VOLUME 83.1 FL (83-96); MEAN CORPUSCULAR HEMOGLOBIN 26.9 PG (28-34); MEAN CORPUSCULAR HGB CONC 32.4 g/dL (30-36); MONOCYTE# 0.7 X10e3 (0-1.0); MONOCYTE% 3.8 % (3.0-12.0); NEUTROPHIL# 14.4 X10e3 (1.5-7.1); NEUTROPHIL% 81.7 % (40-75); PLATELET COUNT 336 X10e3 (140-420); RED BLOOD COUNT 3.04 X10e (3.90-5.30); RED CELL DISTRIBUTION WIDTH 17.7 % (11.0-15.5); WHITE BLOOD COUNT 17.6 X10e3 (4.0-10.5)
[2017-02-27 04:50] LABS: DIFF IND NO
[2017-02-27 05:40] LABS: ALBUMIN SERUM 2.9 g/dL (3.5-5.0); BILIRUBIN,TOTAL 0.7 mg/dL (0.2-2.0); CALCIUM SERUM 9.1 mg/dL (8.4-10.2); CREATININE SERUM 1.9 mg/dL (0.6-1.4); GLOM FILT RATE Estimated 34.5 mL/min (>60); PHOSPHOROUS 3.1 mg/dL (2.5-4.6); POTASSIUM 3.8 mmol/L (3.5-5.1); PROTEIN TOTAL SERUM 7.5 g/dL (6.0-8.3)
[2017-02-28 03:56] LABS: ARTERIAL BLD GAS O2 SATURATION 93.1 % (90.0-100.0); ARTERIAL BLOOD GAS CARBOXY HB 1.7 %sat (0.0-9.0); ARTERIAL BLOOD GAS HCO3 31.5 mmol/L; ARTERIAL BLOOD GAS MET HB 2.4 %sat (0.0-2.0); ARTERIAL BLOOD GAS PCO2 41.9 mmHg (35.0-45.0); ARTERIAL BLOOD GAS pH 7.484 (7.350-7.450)
[2017-02-28 03:59] LABS: ARTERIAL BLOOD GAS PO2 78.3 mmHg (80.0-100)
[2017-02-28 04:00] LABS: ARTERIAL BLOOD GAS ART SITE LEFT BRACHIAL; ARTERIAL BLOOD GAS DELIVERY NASAL CANNULA; ARTERIAL DRAW? YES
[2017-02-28 08:13] LABS: BASOPHIL% 0.1 % (0-2.5); EOSINOPHIL# 0.2 X10e3 (0-0.7); EOSINOPHIL% 0.9 % (0.0-7.0); HEMATOCRIT 14.3 % (35.0-45.0); LYMPHOCYTE# 2.1 X10e3 (1.0-3.5); LYMPHOCYTE% 10.1 % (17.0-45.0); MEAN CELL VOLUME 83.9 FL (83-96); MEAN CORPUSCULAR HEMOGLOBIN 28.8 PG (28-34); MEAN CORPUSCULAR HGB CONC 34.3 g/dL (30-36); MEAN PLATELET VOLUME 8.4 FL (6.5-11.5); MONOCYTE# 0.6 X10e3 (0-1.0); MONOCYTE% 2.7 % (3.0-12.0); NEUTROPHIL# 17.9 X10e3 (1.5-7.1); NEUTROPHIL% 86.2 % (40-75); PLATELET COUNT 255 X10e3 (140-420); RED BLOOD COUNT 1.71 X10e (3.90-5.30); RED CELL DISTRIBUTION WIDTH 17.8 % (11.0-15.5); WHITE BLOOD COUNT 20.8 X10e3 (4.0-10.5)
[2017-02-28 08:18] LABS: HEMOGLOBIN 4.9 gm/dL (12.0-16.0)
[2017-02-28 08:19] LABS: DIFF IND YES
[2017-02-28 08:24] LABS: PARTIAL THROMBOPLASTIN TIME 65.5 SECONDS (23.5-31.3)
[2017-02-28 08:37] LABS: PLATELET ESTIMATE NORMAL (NORMAL); POIKILOCYTOSIS MOD
[2017-02-28 08:56] LABS: ALBUMIN SERUM 2.4 g/dL (3.5-5.0); BILIRUBIN,TOTAL 0.3 mg/dL (0.2-2.0); BUN/CREATININE RATIO 54.21; CALCIUM SERUM 7.9 mg/dL (8.4-10.2); CREATININE SERUM 1.9 mg/dL (0.6-1.4); GLOM FILT RATE Estimated 34.5 mL/min (>60); PHOSPHOROUS 2.2 mg/dL (2.5-4.6); POTASSIUM 3.9 mmol/L (3.5-5.1); PROTEIN TOTAL SERUM 5.8 g/dL (6.0-8.3)
[2017-02-28 09:32] LABS: HEMOGLOBIN 5.1 gm/dL (12.0-16.0)
[2017-02-28 09:50] LABS: INR 1.1; PROTHROMBIN TIME (PATIENT) 11.1 SECONDS (9.6-11.5)
[2017-02-28 15:37] LABS: HEMATOCRIT 18.7 % (35.0-45.0)
[2017-02-28 15:39] LABS: HEMOGLOBIN 6.4 gm/dL (12.0-16.0)
[2017-02-28 19:49] LABS: HEMATOCRIT 22.3 % (35.0-45.0); HEMOGLOBIN 7.5 gm/dL (12.0-16.0)
[2017-03-01 00:06] LABS: HEMATOCRIT 21.4 % (35.0-45.0)
[2017-03-01 03:46] LABS: ARTERIAL BLD GAS O2 SATURATION 93.1 % (90.0-100.0); ARTERIAL BLOOD GAS CARBOXY HB 1.6 %sat (0.0-9.0); ARTERIAL BLOOD GAS HCO3 29.1 mmol/L; ARTERIAL BLOOD GAS MET HB 1.3 %sat (0.0-2.0); ARTERIAL BLOOD GAS PCO2 44.1 mmHg (35.0-45.0); ARTERIAL BLOOD GAS pH 7.427 (7.350-7.450)
[2017-03-01 03:53] LABS: ARTERIAL BLOOD GAS ART SITE LEFT BRACHIAL; ARTERIAL BLOOD GAS DELIVERY NASAL CANNULA; ARTERIAL BLOOD GAS PO2 73.8 mmHg (80.0-100); ARTERIAL DRAW? YES
[2017-03-01 05:43] LABS: BASOPHIL% 0.2 % (0-2.5); EOSINOPHIL# 0.3 X10e3 (0-0.7); EOSINOPHIL% 2.3 % (0.0-7.0); HEMATOCRIT 24.6 % (35.0-45.0); HEMOGLOBIN 8.1 gm/dL (12.0-16.0); LYMPHOCYTE# 2.5 X10e3 (1.0-3.5); LYMPHOCYTE% 16.9 % (17.0-45.0); MEAN CELL VOLUME 81.6 FL (83-96); MEAN PLATELET VOLUME 8.3 FL (6.5-11.5); MONOCYTE# 0.8 X10e3 (0-1.0); MONOCYTE% 5.4 % (3.0-12.0); NEUTROPHIL# 11.1 X10e3 (1.5-7.1); NEUTROPHIL% 75.2 % (40-75); PLATELET COUNT 212 X10e3 (140-420); RED BLOOD COUNT 3.02 X10e (3.90-5.30); RED CELL DISTRIBUTION WIDTH 18.4 % (11.0-15.5); WHITE BLOOD COUNT 14.8 X10e3 (4.0-10.5)
[2017-03-01 05:44] LABS: DIFF IND NO
[2017-03-01 06:11] LABS: ALBUMIN SERUM 2.4 g/dL (3.5-5.0); BILIRUBIN,TOTAL 0.8 mg/dL (0.2-2.0); BUN/CREATININE RATIO 44.09; CALCIUM SERUM 7.6 mg/dL (8.4-10.2); CREATININE SERUM 2.2 mg/dL (0.6-1.4); GLOM FILT RATE Estimated 28.9 mL/min (>60); PHOSPHOROUS 4.4 mg/dL (2.5-4.6); POTASSIUM 4.2 mmol/L (3.5-5.1); PROTEIN TOTAL SERUM 5.5 g/dL (6.0-8.3)
[2017-03-01 07:50] LABS: HEMATOCRIT 27.8 % (35.0-45.0); HEMOGLOBIN 9.2 gm/dL (12.0-16.0)
[2017-03-01 12:24] LABS: HEMATOCRIT 28.5 % (35.0-45.0); HEMOGLOBIN 9.3 gm/dL (12.0-16.0)
[2017-03-01 16:04] LABS: HEMATOCRIT 29.5 % (35.0-45.0); HEMOGLOBIN 9.7 gm/dL (12.0-16.0)
[2017-03-01 20:06] LABS: HEMATOCRIT 28.3 % (35.0-45.0); HEMOGLOBIN 9.3 gm/dL (12.0-16.0)
[2017-03-01 20:24] LABS: BUN/CREATININE RATIO 34.44; CREATININE SERUM 1.8 mg/dL (0.6-1.4); GLOM FILT RATE Estimated 36.9 mL/min (>60); POTASSIUM 3.7 mmol/L (3.5-5.1)
[2017-03-02 03:55] LABS: BASOPHIL% 0.1 % (0-2.5); EOSINOPHIL% 0.2 % (0.0-7.0); HEMATOCRIT 27.2 % (35.0-45.0); HEMOGLOBIN 8.9 gm/dL (12.0-16.0); LYMPHOCYTE# 1.4 X10e3 (1.0-3.5); LYMPHOCYTE% 8.9 % (17.0-45.0); MEAN CELL VOLUME 83.4 FL (83-96); MEAN CORPUSCULAR HEMOGLOBIN 27.2 PG (28-34); MEAN CORPUSCULAR HGB CONC 32.6 g/dL (30-36); MONOCYTE# 0.9 X10e3 (0-1.0); MONOCYTE% 5.9 % (3.0-12.0); NEUTROPHIL# 13.6 X10e3 (1.5-7.1); NEUTROPHIL% 84.9 % (40-75); PLATELET COUNT 239 X10e3 (140-420); RED BLOOD COUNT 3.27 X10e (3.90-5.30); RED CELL DISTRIBUTION WIDTH 18.4 % (11.0-15.5)
[2017-03-02 03:56] LABS: DIFF IND YES
[2017-03-02 04:18] LABS: ARTERIAL BLD GAS O2 SATURATION 92.5 % (90.0-100.0); ARTERIAL BLOOD GAS CARBOXY HB 1.6 %sat (0.0-9.0); ARTERIAL BLOOD GAS HCO3 28.6 mmol/L; ARTERIAL BLOOD GAS PCO2 37.1 mmHg (35.0-45.0); ARTERIAL BLOOD GAS pH 7.495 (7.350-7.450)
[2017-03-02 04:24] LABS: ARTERIAL BLOOD GAS ALLEN TEST NORMAL; ARTERIAL BLOOD GAS ART SITE LEFT RADIAL; ARTERIAL BLOOD GAS DELIVERY NASAL CANNULA; ARTERIAL BLOOD GAS PO2 67.5 mmHg (80.0-100); ARTERIAL DRAW? YES
[2017-03-02 04:25] LABS: BILIRUBIN,TOTAL 0.8 mg/dL (0.2-2.0); BUN/CREATININE RATIO 39.23; CALCIUM SERUM 8.9 mg/dL (8.4-10.2); CREATININE SERUM 1.3 mg/dL (0.6-1.4); GLOM FILT RATE Estimated 54.6 mL/min (>60); MAGNESIUM 1.9 mg/dL (1.6-3.0); PHOSPHOROUS 3.1 mg/dL (2.5-4.6); POTASSIUM 3.5 mmol/L (3.5-5.1); PROTEIN TOTAL SERUM 7.3 g/dL (6.0-8.3)
[2017-03-02 04:29] LABS: ANISOCYTOSIS MOD; MICROCYTOSIS SL; NUCLEATED RED BLOOD CELL 2 /100 (0); PLATELET ESTIMATE NORMAL (NORMAL)
[2017-03-02 04:30] LABS: HYPOCHROMIA SL
[2017-03-02 10:37] LABS: URINE APPEARANCE CLEAR; URINE BILIRUBIN NEG (NEG); URINE BLOOD TRACE (NEG); URINE COLOR YELLOW; URINE GLUCOSE 500 MG/DL (NEG); URINE KETONE TRACE (NEG); URINE LEUKOCYTE ESTERASE NEG (NEG); URINE NITRATE NEG (NEG); URINE PROTEIN 1+ (NEG); URINE SPECIFIC GRAVITY 1.014 (1.003-1.035); URINE UROBILINOGEN 0.2 MG/DL (NEG)
[2017-03-02 10:41] LABS: U HYALINE CASTS AUWI 0-2 /[LPF]; URBCS1 AUWI 0-2 /[HPF] (0-2); URINE BACTERIA AUWI NEG (NEGATIVE); URINE SQUAMOUS EPITHELIAL CELL NONE SEEN /[HPF]; UWBCS1 AUWI 0-2 (0-5)
[2017-03-02 13:09] LABS: HEMATOCRIT 27.4 % (35.0-45.0); HEMOGLOBIN 8.9 gm/dL (12.0-16.0); MEAN CELL VOLUME 83.3 FL (83-96); MEAN CORPUSCULAR HGB CONC 32.4 g/dL (30-36); MEAN PLATELET VOLUME 8.1 FL (6.5-11.5); RED BLOOD COUNT 3.28 X10e (3.90-5.30); RED CELL DISTRIBUTION WIDTH 18.1 % (11.0-15.5); WHITE BLOOD COUNT 14.6 X10e3 (4.0-10.5)
[2017-03-02 20:19] LABS: HEMATOCRIT 31.4 % (35.0-45.0); HEMOGLOBIN 9.9 gm/dL (12.0-16.0); MEAN CELL VOLUME 83.7 FL (83-96); MEAN CORPUSCULAR HEMOGLOBIN 26.4 PG (28-34); MEAN CORPUSCULAR HGB CONC 31.6 g/dL (30-36); MEAN PLATELET VOLUME 8.4 FL (6.5-11.5); RED BLOOD COUNT 3.75 X10e (3.90-5.30); RED CELL DISTRIBUTION WIDTH 18.4 % (11.0-15.5); WHITE BLOOD COUNT 15.6 X10e3 (4.0-10.5)
[2017-03-03 04:17] LABS: BASOPHIL% 0.2 % (0-2.5); EOSINOPHIL# 0.1 X10e3 (0-0.7); EOSINOPHIL% 0.4 % (0.0-7.0); HEMATOCRIT 27.2 % (35.0-45.0); HEMOGLOBIN 8.9 gm/dL (12.0-16.0); LYMPHOCYTE# 1.5 X10e3 (1.0-3.5); LYMPHOCYTE% 10.4 % (17.0-45.0); MEAN CELL VOLUME 83.8 FL (83-96); MEAN CORPUSCULAR HEMOGLOBIN 27.4 PG (28-34); MEAN CORPUSCULAR HGB CONC 32.7 g/dL (30-36); MEAN PLATELET VOLUME 7.9 FL (6.5-11.5); MONOCYTE# 1.2 X10e3 (0-1.0); MONOCYTE% 8.2 % (3.0-12.0); NEUTROPHIL# 11.8 X10e3 (1.5-7.1); NEUTROPHIL% 80.8 % (40-75); PLATELET COUNT 248 X10e3 (140-420); RED BLOOD COUNT 3.24 X10e (3.90-5.30); RED CELL DISTRIBUTION WIDTH 18.4 % (11.0-15.5); WHITE BLOOD COUNT 14.6 X10e3 (4.0-10.5)
[2017-03-03 04:22] LABS: DIFF IND NO
[2017-03-03 04:57] LABS: ALBUMIN SERUM 2.9 g/dL (3.5-5.0); BILIRUBIN,TOTAL 0.8 mg/dL (0.2-2.0); BUN/CREATININE RATIO 23.57; CALCIUM SERUM 8.5 mg/dL (8.4-10.2); CREATININE SERUM 1.4 mg/dL (0.6-1.4); GLOM FILT RATE Estimated 49.9 mL/min (>60); MAGNESIUM 1.7 mg/dL (1.6-3.0); PHOSPHOROUS 2.7 mg/dL (2.5-4.6); POTASSIUM 3.4 mmol/L (3.5-5.1); PROTEIN TOTAL SERUM 6.8 g/dL (6.0-8.3)
[2017-03-04 03:38] LABS: HEMATOCRIT 26.2 % (35.0-45.0); HEMOGLOBIN 8.6 gm/dL (12.0-16.0); MEAN CELL VOLUME 83.6 FL (83-96); MEAN CORPUSCULAR HEMOGLOBIN 27.4 PG (28-34); MEAN CORPUSCULAR HGB CONC 32.8 g/dL (30-36); MEAN PLATELET VOLUME 7.7 FL (6.5-11.5); RED BLOOD COUNT 3.14 X10e (3.90-5.30); RED CELL DISTRIBUTION WIDTH 17.8 % (11.0-15.5); WHITE BLOOD COUNT 12.3 X10e3 (4.0-10.5)
[2017-03-04 04:10] LABS: BUN/CREATININE RATIO 22.5; CREATININE SERUM 1.6 mg/dL (0.6-1.4); GLOM FILT RATE Estimated 42.5 mL/min (>60); MAGNESIUM 2.3 mg/dL (1.6-3.0); PHOSPHOROUS 3.6 mg/dL (2.5-4.6); POTASSIUM 3.2 mmol/L (3.5-5.1)
[2017-03-05 05:44] LABS: HEMATOCRIT 26.3 % (35.0-45.0); HEMOGLOBIN 8.6 gm/dL (12.0-16.0); MEAN CELL VOLUME 83.4 FL (83-96); MEAN CORPUSCULAR HEMOGLOBIN 27.2 PG (28-34); MEAN CORPUSCULAR HGB CONC 32.6 g/dL (30-36); MEAN PLATELET VOLUME 8.2 FL (6.5-11.5); RED BLOOD COUNT 3.15 X10e (3.90-5.30); RED CELL DISTRIBUTION WIDTH 17.8 % (11.0-15.5); WHITE BLOOD COUNT 11.2 X10e3 (4.0-10.5)
[2017-03-05 06:53] LABS: ALBUMIN SERUM 2.6 g/dL (3.5-5.0); BILIRUBIN,TOTAL 0.6 mg/dL (0.2-2.0); CALCIUM SERUM 8.1 mg/dL (8.4-10.2); CREATININE SERUM 1.6 mg/dL (0.6-1.4); GLOM FILT RATE Estimated 42.5 mL/min (>60); PHOSPHOROUS 3.7 mg/dL (2.5-4.6); PROTEIN TOTAL SERUM 5.9 g/dL (6.0-8.3)
[2017-03-06 04:41] LABS: HEMATOCRIT 25.4 % (35.0-45.0); HEMOGLOBIN 8.4 gm/dL (12.0-16.0); MEAN CELL VOLUME 83.5 FL (83-96); MEAN CORPUSCULAR HEMOGLOBIN 27.6 PG (28-34); MEAN CORPUSCULAR HGB CONC 33.1 g/dL (30-36); MEAN PLATELET VOLUME 7.5 FL (6.5-11.5); RED BLOOD COUNT 3.04 X10e (3.90-5.30); RED CELL DISTRIBUTION WIDTH 17.6 % (11.0-15.5); WHITE BLOOD COUNT 10.4 X10e3 (4.0-10.5)
[2017-03-06 05:07] LABS: BUN/CREATININE RATIO 19.44; CREATININE SERUM 1.8 mg/dL (0.6-1.4); GLOM FILT RATE Estimated 36.9 mL/min (>60); POTASSIUM 3.1 mmol/L (3.5-5.1)
[2017-03-07 06:05] LABS: HEMATOCRIT 21.3 % (35.0-45.0); HEMOGLOBIN 7.1 gm/dL (12.0-16.0); MEAN CORPUSCULAR HEMOGLOBIN 28.1 PG (28-34); MEAN CORPUSCULAR HGB CONC 33.5 g/dL (30-36); MEAN PLATELET VOLUME 7.8 FL (6.5-11.5); RED BLOOD COUNT 2.53 X10e (3.90-5.30); RED CELL DISTRIBUTION WIDTH 18.3 % (11.0-15.5); WHITE BLOOD COUNT 9.4 X10e3 (4.0-10.5)
[2017-03-07 07:03] LABS: ALBUMIN SERUM 2.4 g/dL (3.5-5.0); BILIRUBIN,TOTAL 0.3 mg/dL (0.2-2.0); BUN/CREATININE RATIO 16.36; CALCIUM SERUM 7.8 mg/dL (8.4-10.2); CREATININE SERUM 2.2 mg/dL (0.6-1.4); GLOM FILT RATE Estimated 28.9 mL/min (>60); MAGNESIUM 1.7 mg/dL (1.6-3.0); PHOSPHOROUS 4.3 mg/dL (2.5-4.6); POTASSIUM 3.7 mmol/L (3.5-5.1); PROTEIN TOTAL SERUM 5.2 g/dL (6.0-8.3)
[2017-03-07 15:31] LABS: FOLATE (FOLIC ACID) 11.6 ng/mL (>5.8)
[2017-03-08 00:16] LABS: HEMATOCRIT 27.2 % (35.0-45.0)
[2017-03-08 06:24] LABS: HEMATOCRIT 30.8 % (35.0-45.0); HEMOGLOBIN 9.9 gm/dL (12.0-16.0); MEAN CELL VOLUME 84.4 FL (83-96); MEAN CORPUSCULAR HEMOGLOBIN 27.2 PG (28-34); MEAN CORPUSCULAR HGB CONC 32.2 g/dL (30-36); MEAN PLATELET VOLUME 8.4 FL (6.5-11.5); RED BLOOD COUNT 3.65 X10e (3.90-5.30); RED CELL DISTRIBUTION WIDTH 17.9 % (11.0-15.5); WHITE BLOOD COUNT 9.1 X10e3 (4.0-10.5)
[2017-03-08 06:59] LABS: CALCIUM SERUM 8.1 mg/dL (8.4-10.2); CREATININE SERUM 1.5 mg/dL (0.6-1.4); POTASSIUM 4.2 mmol/L (3.5-5.1)
[2017-03-09 06:43] LABS: BASOPHIL# 0.2 X10e3 (0-0.3); BASOPHIL% 1.4 % (0-2.5); EOSINOPHIL# 0.1 X10e3 (0-0.7); EOSINOPHIL% 0.7 % (0.0-7.0); HEMATOCRIT 32.1 % (35.0-45.0); HEMOGLOBIN 10.5 gm/dL (12.0-16.0); LYMPHOCYTE# 1.9 X10e3 (1.0-3.5); LYMPHOCYTE% 16.6 % (17.0-45.0); MEAN CELL VOLUME 83.8 FL (83-96); MEAN CORPUSCULAR HEMOGLOBIN 27.5 PG (28-34); MEAN CORPUSCULAR HGB CONC 32.9 g/dL (30-36); MEAN PLATELET VOLUME 8.2 FL (6.5-11.5); MONOCYTE# 0.9 X10e3 (0-1.0); MONOCYTE% 7.6 % (3.0-12.0); NEUTROPHIL# 8.5 X10e3 (1.5-7.1); NEUTROPHIL% 73.7 % (40-75); PLATELET COUNT 310 X10e3 (140-420); RED BLOOD COUNT 3.82 X10e (3.90-5.30); RED CELL DISTRIBUTION WIDTH 18.4 % (11.0-15.5); WHITE BLOOD COUNT 11.5 X10e3 (4.0-10.5)
[2017-03-09 06:45] LABS: DIFF IND NO
[2017-03-09 07:22] LABS: BUN/CREATININE RATIO 17.69; CALCIUM SERUM 8.4 mg/dL (8.4-10.2); CREATININE SERUM 1.3 mg/dL (0.6-1.4); GLOM FILT RATE Estimated 54.6 mL/min (>60); POTASSIUM 4.1 mmol/L (3.5-5.1)
[2017-03-09] MEDS ORDERED: COMBIVENT U/D3 M4 INH (11:23)
[2017-03-09] MEDS ORDERED: HALDOL PO (11:24)
[2017-03-09] MEDS ORDERED: SODIUM BICARBO650 MG PO (11:24)
[2017-03-09] MEDS ORDERED: CARVEDILOL25 MG PO (11:25)
[2017-03-09] MEDS ORDERED: NORVASC10 MG PO (11:25)
[2017-03-09] MEDS ORDERED: CLONIDINE HCL0.1 MG PO (11:26)
[2017-03-09] MEDS ORDERED: ZYPREXA PO (11:26)
== END 2017-03-09 16:40 | disposition home health service (06) | DRG 853 ==
LOC: CED 05:28 → CEDOF 07:35 → CICCU2 20:31 → C3A PCU 03-04 07:47
PROVIDERS: Emergency Medicine; Family Medicine; Internal Medicine; Internal Medicine Cardiovascular Disease; Internal Medicine Nephrology; Internal Medicine Pulmonary Disease
PROC: 5A1955Z Respiratory Ventilation, Greater than 96 Consecutive Hours (ICD-10-PCS; 2017-02-20)
PROC: 0BH17EZ Insertion of Endotracheal Airway into Trachea, Via Natural or Artificial Opening (ICD-10-PCS; 2017-02-20)
PROC: 05HM33Z Insertion of Infusion Device into Right Internal Jugular Vein, Percutaneous Approach (ICD-10-PCS; 2017-02-20)
PROC: B543ZZA Ultrasonography of Right Jugular Veins, Guidance (ICD-10-PCS; 2017-02-20)
PROC: 0D9670Z Drainage of Stomach with Drainage Device, Via Natural or Artificial Opening (ICD-10-PCS; 2017-02-20)
PROC: 0B9C8ZX Drainage of Right Upper Lung Lobe, Via Natural or Artificial Opening Endoscopic, Diagnostic (ICD-10-PCS; 2017-02-21)
PROC: 0B9M8ZZ Drainage of Bilateral Lungs, Via Natural or Artificial Opening Endoscopic (ICD-10-PCS; 2017-02-21)
PROC: B544ZZA Ultrasonography of Left Jugular Veins, Guidance (ICD-10-PCS; 2017-02-21)
PROC: 05HN33Z Insertion of Infusion Device into Left Internal Jugular Vein, Percutaneous Approach (ICD-10-PCS; 2017-02-21)
PROC: 5A12012 Performance of Cardiac Output, Single, Manual (ICD-10-PCS; principal; 2017-02-22)
PROC: 5A1D60Z (ICD-10-PCS; 2017-02-22)
PROC: B24BYZZ Ultrasonography of Heart with Aorta using Other Contrast (ICD-10-PCS; 2017-02-22)
PROC: 0DJ08ZZ Inspection of Upper Intestinal Tract, Via Natural or Artificial Opening Endoscopic (ICD-10-PCS; 2017-02-28)
DX: A41.9 Sepsis, unspecified organism (principal); J96.01 Acute respiratory failure with hypoxia; I21.4 Non-ST elevation (NSTEMI) myocardial infarction; R65.21 Severe sepsis with septic shock; J80 Acute respiratory distress syndrome; G92 Toxic encephalopathy; I47.2 Ventricular tachycardia; J18.9 Pneumonia, unspecified organism; N17.9 Acute kidney failure, unspecified; K31.84 Gastroparesis; I13.0 Hypertensive heart and chronic kidney disease with heart failure and stage 1 through stage 4 chronic kidney disease, or unspecified chronic kidney disease; N18.3 Chronic kidney disease, stage 3 (moderate); I50.32 Chronic diastolic (congestive) heart failure; J44.1 Chronic obstructive pulmonary disease with (acute) exacerbation; F31.89 Other bipolar disorder; F05 Delirium due to known physiological condition; K92.2 Gastrointestinal hemorrhage, unspecified; E87.0 Hyperosmolality and hypernatremia; E46 Unspecified protein-calorie malnutrition; E87.5 Hyperkalemia; R06.00 Dyspnea, unspecified; N31.9 Neuromuscular dysfunction of bladder, unspecified; E11.43 Type 2 diabetes mellitus with diabetic autonomic (poly)neuropathy; E11.42 Type 2 diabetes mellitus with diabetic polyneuropathy; E11.22 Type 2 diabetes mellitus with diabetic chronic kidney disease; Z79.84 Long term (current) use of oral hypoglycemic drugs; J44.9 Chronic obstructive pulmonary disease, unspecified; Z79.01 Long term (current) use of anticoagulants; J45.909 Unspecified asthma, uncomplicated; Z90.49 Acquired absence of other specified parts of digestive tract; Z90.710 Acquired absence of both cervix and uterus; Z88.0 Allergy status to penicillin; E66.01 Morbid (severe) obesity due to excess calories; K21.9 Gastro-esophageal reflux disease without esophagitis; G47.33 Obstructive sleep apnea (adult) (pediatric); F41.9 Anxiety disorder, unspecified; F32.9 Major depressive disorder, single episode, unspecified; D86.9 Sarcoidosis, unspecified; D64.9 Anemia, unspecified; E87.6 Hypokalemia; Z68.37 Body mass index [BMI] 37.0-37.9, adult
CPT/HCPCS: 36415; 36600; 70450; 71010; 71250; 74000; 74176; 80048; 80053; 80061; 80076; 80202; 80307; 81003; 82140; 82550; 82553; 82607; 82746; 82803; 82947; 83540; 83605; 83735; 83880; 83935; 84100; 84132; 84300; 84443; 84484; 85014; 85018; 85025; 85027; 85610; 85730; 86850; 86900; 86901; 86923; 87040; 87070; 87102; 87106; 87116; 87205; 87206; 87252; 87254; 87278; 87340; 87449; 87804; 87899; 88108; 88312; 89051; 92526; 92610; 92950; 93005; 93306; 93971; 94002; 94003; 94640; 94644; 94660; 94760; 96360; 97110; 97116; 97163; 97167; 97530; 97535; 99285; C1750; C9113; G8978-GP; G8979-GP; G8980-GP; G8987-GO; G8988-GO; G8996-GN; G8997-GN; G8998-GN; J0171; J0360; J0610; J0692; J1200; J1630; J1644; J1650; J1815; J1940; J1953; J2250; J2270; J2354; J2405; J2916; J2920; J3260; J3370; J3475; J3480; J3490; J7060; P9016

== ENCOUNTER 2017-03-16 23:09 | Inpatient (IN) | payer MEDICARE, OTHER ==
--- NOTE | ~2017-03-16 | HP ---
Unit #: [id number] #: [id number] Patient: JOSE G VILLA [id number] [address] [address] [id number] I MR#: [id number] NAME: JOSE G VILLA. ROOM: 18295 Age: 51 Sex: F Admission Date: 03/17/2017 : 1965 Attending Physician: Petrona Marvin M.D. Primary Care Physician: No Primary Care Physician HISTORY AND PHYSICAL CHIEF COMPLAINT Gastroparesis with intractable nausea and vomiting, accelerated hypertension and uncontrolled diabetes mellitus. HISTORY This 51-year-old female with AODM and associated gastroparesis, chronic kidney disease, hypertension, is admitted for intractable nausea and vomiting. The patient was most recently admitted to this facility 02/20 through 03/09/2017 for pneumonia with respiratory failure, ARDS, septic shock, V-tach arrest, and non-ST elevation MN. She was well until yesterday when she states that she developed nausea and vomiting, was unable to keep down her usual medicines. She presented to this emergency department last evening with a blood pressure of 205/110, glucose of 482, active vomiting. She was bolused with a liter of saline, given Pepcid, 0.2 mg of clonidine, Zofran. Her blood pressure remained elevated. She was given 20 mg of IV labetalol with improvement, 1 mg of Dilaudid and 8 units of IV regular insulin. At this time, she is feeling more comfortable. Labs are also notable for acute on chronic kidney disease. PAST MEDICAL HISTORY 1. Admission 02/20 through 03/09/2017 for pneumonia with acute respiratory failure, ARDS, septic shock. The patient required resuscitation for V-tach arrest. Ruled in for non-ST elevation MN. Was noted to be anemic, on heparin. Did undergo an EGD which was negative. Echo revealed an ejection fraction of 50% to 55% with grade 1 diastolic dysfunction, mild MR, mild to moderate TR, severe LVH. 2. AODM since 2008, associated with gastroparesis. The patient previously had a gastric stimulator placed which was later removed. Also has associated peripheral neuropathy and neurogenic bladder. 3. Chronic kidney disease. 4. Hypertension. 5. COPD. 6. DVT and PE history, status post IVC filter placement. 7. History of sarcoidosis. 8. Bipolar disorder. 9. Appendectomy. 10. Hysterectomy. 11. Cholecystectomy. 12. Dilation of the esophagus in the past. 13. Gastric stimulator placement and later removal. ALLERGIES Unit #: [id number] #: [id number] Patient: JOSE G VILLA Penicillin, nifedipine, clonidine, Reglan. HOME MEDICATIONS At the time of discharge, the patient was takin. Sodium bicarb 1300 mg b.i.d. 2. P.r.n. Tylenol. 3. Prozac 60 mg daily. 4. Duo-Nebs q.6 hours. 5. Emend which is an antiemetic, 40 mg daily. 6. Haldol 2 mg t.i.d. 7. Coreg 25 mg b.i.d. 8. Norvasc 10 mg daily. 9. Lipitor 40 mg q. h.s. 10. Clonidine 0.1 mg b.i.d. 11. Levemir 20 units subcu b.i.d. 12. NovoLog 10 units t.i.d. with meals. 13. Iron gluconate 324 mg daily. 14. Protonix 40 mg daily. 15. Aldactone 100 mg daily. 16. Zyprexa 5 mg t.i.d. FAMILY HISTORY Negative for GI disease. SOCIAL HISTORY The patient states that she lives with her daughter, is a lifelong nonsmoker, does not drink alcohol and does not use illicit drugs. REVIEW OF SYSTEMS Notable for nausea, vomiting, stomach pain, gastroparesis, chronic kidney disease, neurogenic bladder, diabetes, neuropathy, hypertension, COPD, PE, DVT, sarcoidosis, bipolar, above mentioned surgeries. All other systems were reviewed and are otherwise negative. PHYSICAL EXAMINATION GENERAL APPEARANCE: 51-year-old female, currently in no acute distress after receiving treatment as dictated in my History of Present Illness. VITAL SIGNS: Temperature 99, pulse 86, respirations 20, initial blood pressure 295/110 but current blood pressure has improved to 159/88. O2 saturation is 96% on room air. HEENT: Eyes PERRLA. Extraocular muscles are intact. Pharynx is benign, edentulous. NECK: Supple without adenopathy or thyromegaly. CHEST: Clear. CARDIAC: Normal S1 and S2. Soft systolic murmur left sternal border. ABDOMEN: Bowel sounds are present. Mild epigastric tenderness. No hepatosplenomegaly or masses. EXTREMITIES: With mild edema. Pedal pulses are present but diminished. No ulcers on the feet. NEUROLOGIC EXAM: The patient is awake, alert, oriented. Cranial nerves are intact. She has equal strength throughout. DIAGNOSTIC STUDIES LABORATORY: Admission labs - hematocrit 39.1, white blood count is 12.6, normal platelet count. SMA-12 - glucose 482, BUN 28, creatinine 1.8, up from a BUN of 23, creatinine of 1.3 eight days ago. Protein 8.9, AST 73, ALT 96, alk. phos. Unit #: [id number] #: [id number] Patient: JOSE G VILLA 414 which is higher than previous values. Urinalysis - pH 9. No significant white or red cells. IMAGING: No imaging studies were done. ASSESSMENT 1. Gastroparesis with intractable nausea and vomiting: Complains of increasing abdominal pain. Note - patient does have liver function tests which are higher than previous values. 2. Accelerated hypertension, unable to keep down medications. 3. Adult onset diabetes mellitus with uncontrolled diabetes mellitus. Patient has a history of gastroparesis, peripheral neuropathy, and neurogenic bladder. 4. Acute on chronic kidney disease. 5. Recent admission for pneumonia associated with adult respiratory distress syndrome and septic shock with ventricular tachycardia arrest and non-ST elevation myocardial infarction. 6. Chronic obstructive pulmonary disease. 7. Status post inferior vena cava filter for deep venous thrombosis and pulmonary embolus. 8. Bipolar disorder. 9. History of drug seeking behavior per old records. PLANS 1. IV fluids. 2. Antiemetics. 3. Repeat labs this morning including LFTs and workup further if not improving. 4. Sliding scale insulin and Levemir. 5. Restart usual blood pressure medicines. 6. SCDs for DVT prophylaxis. 7. Check acute abdominal series. 8. Will check hepatitis profile. Dictated by Petrona Marvin M.D. AML/df TD: 03/17/2017 05:35 JOB #: [id number] HISTORY AND PHYSICAL Page 1 of 1 X Petrona Marvin MD X HISTORY AND PHYSICAL
--- NOTE | ~2017-03-16 | CR2 ---
[facility] A Service of [facility] & [facility] RADIOLOGY TEXT RESULTS PATIENT: JOSE G VILLA LOCATION: [facility] 309-01 : [birth year] UNIT #: [id number] AGE: [address]: Sedrick Lorenzana MD SEX: F ORDER DR: [id number] [facility] [address] [facility]. [place], [place] [address] [id number] I MR#: [id number] Acc #: [id number] NAME: JOSE G VILLA. : 1965 SEX: F STUDY DATE/TIME: 03/17/2017 UNIT: [facility] ROOM: 19819 STUDY DESCRIPTION: CR Abdomen Acute Series Attending Physician: Petrona Marvin M.D. Ordering Physician: Petrona Marvin M.D. Primary Care Physician: Primary Care Physician No MEDICAL IMAGING REPORT This report is preliminary unless electronic signature is present EXAM Acute abdominal series 03/17 at 03:31 INDICATIONS Abdominal pain and vomiting for 2 days. FINDINGS Upright view the chest was obtained in addition to flat and upright views of the abdomen. Comparison made with chest x-ray from 03/06/2017 and an abdomen film from 03/01/2017. The heart size stable. There is chronic elevation of the right hemidiaphragm. Chronic atelectasis or scarring noted in the bases. No pneumothorax. The bowel gas pattern is normal. There is no obstruction or free air. IVC filter is present. Cholecystectomy clips are present. Metallic densities in the left upper quadrant are stable. Tubal ligation clips are noted. The pelvis. IMPRESSION Chronic elevated right hemidiaphragm with chronic atelectasis or scarring in both bases. Normal bowel gas pattern. No obstruction or free air. Dictated by... Jimi Lutz Jr., M.D. THIS IS AN ELECTRONICALLY VERIFIED REPORT Jimi Lutz Jr., M.D. at 03/18/2017 5:53 AM CHICHI/raulito TD: 03/17/2017 07:30 JOB #: [id number] MEDICAL IMAGING REPORT [facility] A Service of [facility] & [facility] RADIOLOGY TEXT RESULTS PATIENT: JOSE G VILLA LOCATION: [facility] 309-01 : [birth year] UNIT #: [id number] AGE: [address]: Sedrick Lorenzana MD SEX: F ORDER DR: Page 1 of 1 COPY
--- NOTE | ~2017-03-16 | DS ---
Unit #: [id number] #: [id number] Patient: JOSE G VILLA [id number] [address] [address] [id number] I MR#: [id number] NAME: JOSE G VILLA. ROOM: 309 Age: 51 Sex: F Admission Date: 03/17/2017 : 1965 Discharge Date: 03/20/2017 Attending Physician: Sedrick Lorenzana M.D. Primary Care Physician: No Primary Care Physician DISCHARGE SUMMARY ADMITTING DIAGNOSES 1. Nausea, vomiting. 2. Poorly-controlled diabetes, type 2. 3. Hypertensive crisis. DISCHARGE DIAGNOSES 1. Nausea, vomiting. 2. Poorly-controlled diabetes, type 2. 3. Hypertensive crisis. HISTORY OF PRESENTING ILLNESS Patient is a 51-year-old morbidly obese -[place] lady with a past medical history of gastroparesis, history of chronic kidney disease, hypertension who is admitted because of intractable nausea and vomiting. In the hospital course, she was started on IV fluids, p.r.n. analgesics, p.r.n. Zofran. Her nausea and vomiting have slowly improved. Apparently, she was not taking her hypertensive medications. Her blood pressures initially high up to 205/110. After restarting her medications, the blood pressure started to slowly improve. She is counseled to take her medications regularly. We are giving her p.r.n. Zofran. She had multiple hospitalizations and multiple emergency room visits in the last one month and because of her intractable nausea, we are trying to get her to rehab placement. I spoke with patient and the case reviewer. The patient is agreeable to go to the rehab. PHYSICAL EXAMINATION On the day of the discharge, her physical examination: VITAL SIGNS: Temperature 98.7, pulse rate 85, respirations 18, blood pressure 137/74. GENERAL: Patient is alert, oriented x3, lying in the bed, in no acute distress. HEENT: Normocephalic and atraumatic. No icterus. PERRLA. Extraocular muscles intact. NECK: Supple. No JVD. HEART: S1, S2. Regular rate and rhythm. CHEST: Bilateral equal air entry. Clear to auscultation. ABDOMEN: Soft, nontender. EXTREMITIES: No edema. Normal pulses. DISCHARGE MEDICATIONS 1. Zofran 4 mg q.6 p.r.n. nausea and vomiting. 2. Prozac 60 mg p.o. daily. 3. Sodium bicarbonate 1300 mg p.o. twice a day. 4. Emend 40 mg daily. Unit #: [id number] #: [id number] Patient: JOSE G VILLA 5. Haldol 2 mg p.o. three times a day. 6. Coreg 25 mg twice a day. 7. Norvasc 10 mg daily. 8. Lipitor 40 mg daily. 9. Clonidine 0.1 mg twice a day. 10. Levemir 20 units subcutaneous daily. 11. Protonix 40 mg daily. 12. Zyprexa 5 mg p.o. three times a day. FOLLOWUP Follow with primary care in one to two weeks. Total time spent in her care, 35 minutes. Dictated by... Ella Alford TD: 03/20/2017 12:11 JOB #: [id number] DISCHARGE SUMMARY Page 1 of 1 X X DISCHARGE SUMMARY
[~2017-03-16 23:09] MED LIST changes: +CARVEDILOL25 MG PO; +COMBIVENT U/D3 M4 INH; +HALDOL PO; +SODIUM BICARBO650 MG PO
[2017-03-17 01:01] LABS: CULTURE INDICATED? YES; U HYALINE CASTS AUWI 0-2 /[LPF]; URBCS1 AUWI 0-2 /[HPF] (0-2); URINE APPEARANCE CLOUDY; URINE BACTERIA AUWI 1+ (NEGATIVE); URINE BILIRUBIN NEG (NEG); URINE BLOOD NEG (NEG); URINE COLOR YELLOW; URINE GLUCOSE 500 MG/DL (NEG); URINE KETONE TRACE (NEG); URINE LEUKOCYTE ESTERASE NEG (NEG); URINE NITRATE NEG (NEG); URINE PROTEIN 1+ (NEG); URINE SOURCE CLEAN CATCH; URINE SPECIFIC GRAVITY 1.023 (1.003-1.035); URINE SQUAMOUS EPITHELIAL CELL FEW /[HPF]
[2017-03-17 01:20] LABS: BASOPHIL# 0.1 X10e3 (0-0.3); BASOPHIL% 0.6 % (0-2.5); EOSINOPHIL# 0.1 X10e3 (0-0.7); EOSINOPHIL% 0.6 % (0.0-7.0); HEMATOCRIT 39.1 % (35.0-45.0); HEMOGLOBIN 13.1 gm/dL (12.0-16.0); LYMPHOCYTE# 2.2 X10e3 (1.0-3.5); LYMPHOCYTE% 17.2 % (17.0-45.0); MEAN CELL VOLUME 83.4 FL (83-96); MEAN CORPUSCULAR HGB CONC 33.6 g/dL (30-36); MONOCYTE# 0.7 X10e3 (0-1.0); MONOCYTE% 5.9 % (3.0-12.0); NEUTROPHIL# 9.5 X10e3 (1.5-7.1); NEUTROPHIL% 75.7 % (40-75); PLATELET COUNT 324 X10e3 (140-420); RED BLOOD COUNT 4.69 X10e (3.90-5.30); RED CELL DISTRIBUTION WIDTH 18.5 % (11.0-15.5); WHITE BLOOD COUNT 12.6 X10e3 (4.0-10.5)
[2017-03-17 01:21] LABS: DIFF IND NO
[2017-03-17 01:44] LABS: ALBUMIN SERUM 4.1 g/dL (3.5-5.0); BILIRUBIN, DIRECT 0.1 mg/dL (0.0-0.2); BILIRUBIN,TOTAL 1.1 mg/dL (0.2-2.0); BUN/CREATININE RATIO 15.55; CALCIUM SERUM 9.6 mg/dL (8.4-10.2); CREATININE SERUM 1.8 mg/dL (0.6-1.4); GLOM FILT RATE Estimated 36.9 mL/min (>60); PROTEIN TOTAL SERUM 8.9 g/dL (6.0-8.3)
[2017-03-17] MEDS ORDERED: ALBUTEROL2.5 MG/3 M INH (02:59)
[2017-03-17] MEDS ORDERED: ATORVASTATIN CA10 MG PO (03:00)
[2017-03-17] MEDS ORDERED: AMLODIPINE BESY10 MG PO (03:00)
[2017-03-17] MEDS ORDERED: TESSALON PERLE100 M1 PO (03:01)
[2017-03-17] MEDS ORDERED: DEPAKOTE SPRIN125 MG PO (03:03)
[2017-03-17] MEDS ORDERED: CLONIDINE HCL0.3 MG PO (03:03)
[2017-03-17] MEDS ORDERED: DOXEPIN HCL25 MG PO (03:04)
[2017-03-17] MEDS ORDERED: FERRO-TIME325 MG PO (03:04)
[2017-03-17] MEDS ORDERED: ELIQUIS5 MG PO (03:04)
[2017-03-17] MEDS ORDERED: FLUOXETINE HCL20 M1 PO (03:05)
[2017-03-17] MEDS ORDERED: FLONASE 0.05% N16 G1 (03:07)
[2017-03-17] MEDS ORDERED: LOPID600 MG PO (03:07)
[2017-03-17] MEDS ORDERED: HYDRALAZINE HCL50 MG PO (03:08)
[2017-03-17] MEDS ORDERED: IMDUR-ER30 M1 PO (03:09)
[2017-03-17] MEDS ORDERED: SEROQUEL50 M1 PO (03:09)
[2017-03-17] MEDS ORDERED: LABETALOL HCL300 MG PO (03:10)
[2017-03-17] MEDS ORDERED: LEVEMIR FL100 UNIT/1 SUBQ (03:10)
[2017-03-17] MEDS ORDERED: CLARITIN10 M3 PO (03:10)
[2017-03-17] MEDS ORDERED: MELOXICAM7.5 MG PO (03:11)
[2017-03-17] MEDS ORDERED: MIRALAX17 GM PO (03:11)
[2017-03-17] MEDS ORDERED: NITROFURANTOIN100 M3 PO (03:12)
[2017-03-17] MEDS ORDERED: NOVOLOG FL100 UNIT/1 SUBQ (03:13)
[2017-03-17] MEDS ORDERED: NITROGYLCERIN SL (03:13)
[2017-03-17] MEDS ORDERED: PAROXETINE HCL40 M1 PO (03:14)
[2017-03-17] MEDS ORDERED: PHENERGAN25 M1 PO (03:16)
[2017-03-17] MEDS ORDERED: DELTASONE20 MG PO (03:16)
[2017-03-17] MEDS ORDERED: SENNA CONCENTR8.6 MG PO (03:16)
[2017-03-17] MEDS ORDERED: OLANZAPINE5 MG PO (03:17)
[2017-03-17] MEDS ORDERED: LOPRESSOR PO (03:17)
[2017-03-17] MEDS ORDERED: SPIRONOLACTONE100 MG PO (03:17)
[2017-03-17] MEDS ORDERED: LOSARTAN POTASS50 MG PO (03:18)
[2017-03-17] MEDS ORDERED: POTASSIUM CHLORIDE PO (03:19)
[2017-03-17] MEDS ORDERED: LEVEMIR100 UNITS/ SUBQ (05:52)
[2017-03-17] MEDS ORDERED: SOD BICARBONATE PO (05:53)
[2017-03-17] MEDS ORDERED: PROZAC PO (05:53)
[2017-03-17] MEDS ORDERED: EMEND40 MG PO (05:54)
[2017-03-17] MEDS ORDERED: HALDOL PO (05:54)
[2017-03-17] MEDS ORDERED: CARVEDILOL25 MG PO (05:54)
[2017-03-17] MEDS ORDERED: NORVASC10 MG PO (05:54)
[2017-03-17] MEDS ORDERED: LIPITOR40 MG PO (05:55)
[2017-03-17] MEDS ORDERED: ZYPREXA PO (05:55)
[2017-03-17 07:30] LABS: BASOPHIL# 0.1 X10e3 (0-0.3); BASOPHIL% 0.6 % (0-2.5); EOSINOPHIL% 0.1 % (0.0-7.0); HEMATOCRIT 37.1 % (35.0-45.0); HEMOGLOBIN 11.9 gm/dL (12.0-16.0); LYMPHOCYTE% 16.5 % (17.0-45.0); MEAN CORPUSCULAR HEMOGLOBIN 27.3 PG (28-34); MEAN CORPUSCULAR HGB CONC 32.1 g/dL (30-36); MEAN PLATELET VOLUME 7.8 FL (6.5-11.5); MONOCYTE# 0.7 X10e3 (0-1.0); MONOCYTE% 5.7 % (3.0-12.0); NEUTROPHIL# 9.2 X10e3 (1.5-7.1); NEUTROPHIL% 77.1 % (40-75); PLATELET COUNT 293 X10e3 (140-420); RED BLOOD COUNT 4.37 X10e (3.90-5.30); RED CELL DISTRIBUTION WIDTH 18.2 % (11.0-15.5); WHITE BLOOD COUNT 11.9 X10e3 (4.0-10.5)
[2017-03-17 07:32] LABS: DIFF IND NO
[2017-03-17 08:11] LABS: ALBUMIN SERUM 3.5 g/dL (3.5-5.0); BILIRUBIN,TOTAL 0.5 mg/dL (0.2-2.0); BUN/CREATININE RATIO 15.26; CALCIUM SERUM 8.8 mg/dL (8.4-10.2); CREATININE SERUM 1.9 mg/dL (0.6-1.4); GLOM FILT RATE Estimated 34.5 mL/min (>60); POTASSIUM 3.9 mmol/L (3.5-5.1); PROTEIN TOTAL SERUM 7.7 g/dL (6.0-8.3)
[2017-03-18 13:15] LABS: BILIRUBIN,TOTAL 0.5 mg/dL (0.2-2.0); BUN/CREATININE RATIO 9.5; CALCIUM SERUM 8.1 mg/dL (8.4-10.2); GLOM FILT RATE Estimated 32.4 mL/min (>60); POTASSIUM 3.8 mmol/L (3.5-5.1); PROTEIN TOTAL SERUM 6.4 g/dL (6.0-8.3)
[2017-03-19 06:51] LABS: BILIRUBIN,TOTAL 0.4 mg/dL (0.2-2.0); BUN/CREATININE RATIO 9.54; CALCIUM SERUM 8.4 mg/dL (8.4-10.2); CREATININE SERUM 2.2 mg/dL (0.6-1.4); GLOM FILT RATE Estimated 28.9 mL/min (>60); POTASSIUM 3.9 mmol/L (3.5-5.1); PROTEIN TOTAL SERUM 6.2 g/dL (6.0-8.3)
[2017-03-20 00:58] LABS: HA AB IGM (HEPPAN) Nonreactive (()); HB CORE AB IGM (HEPPAN) Nonreactive (Nonreactive); HB S AG (HEPPAN) Nonreactive (Nonreactive); HEP C AB (HEPPAN) Nonreactive (Nonreactive); HEP C AB SIGNAL TO CUTOFF 0.19 ratio (<1.00)
== END 2017-03-20 15:48 | DRG 74 ==
LOC: CED 23:09 → CEDOF 03-17 02:45 → C3A PCU 03-17 02:45 → CEDOF 03-17 02:54 → CED 03-17 02:54 → CEDOF 03-17 08:02 → C3A PCU 03-17 08:43
PROVIDERS: Emergency Medicine; Internal Medicine
DX: E11.43 Type 2 diabetes mellitus with diabetic autonomic (poly)neuropathy (principal); N17.9 Acute kidney failure, unspecified; E11.65 Type 2 diabetes mellitus with hyperglycemia; E66.01 Morbid (severe) obesity due to excess calories; I16.9 Hypertensive crisis, unspecified; K31.84 Gastroparesis; Z79.4 Long term (current) use of insulin; E11.42 Type 2 diabetes mellitus with diabetic polyneuropathy; I12.9 Hypertensive chronic kidney disease with stage 1 through stage 4 chronic kidney disease, or unspecified chronic kidney disease; N18.9 Chronic kidney disease, unspecified; Z68.30 Body mass index [BMI] 30.0-30.9, adult; I25.2 Old myocardial infarction; N31.9 Neuromuscular dysfunction of bladder, unspecified; J44.9 Chronic obstructive pulmonary disease, unspecified; F31.9 Bipolar disorder, unspecified; R94.5 Abnormal results of liver function studies; Z86.711 Personal history of pulmonary embolism; Z86.718 Personal history of other venous thrombosis and embolism; Z88.0 Allergy status to penicillin; Z88.8 Allergy status to other drugs, medicaments and biological substances; Z90.49 Acquired absence of other specified parts of digestive tract; Z90.710 Acquired absence of both cervix and uterus
CPT/HCPCS: 36415; 74022; 80048; 80053; 80074; 80076; 81003; 82150; 82947; 83036; 83690; 84703; 85025; 87086; 96361; 96374; 96375; 99285; J1170; J1815; J2270; J2405; J2765

== ENCOUNTER 2017-03-22 | Emergency (ER) | payer MEDICARE, OTHER ==
[~2017-03-22] MED LIST changes: +ALBUTEROL2.5 MG/3 M INH; +FLONASE 0.05% N16 G1; +IMDUR-ER30 M1 PO; +LEVEMIR FL100 UNIT/1 SUBQ; +LIPITOR40 MG PO; +MELOXICAM7.5 MG PO; +NITROFURANTOIN100 M3 PO; +NITROGYLCERIN SL; +POTASSIUM CHLORIDE PO; +SEROQUEL50 M1 PO; +SOD BICARBONATE PO; +SPIRONOLACTONE100 MG PO
--- NOTE | ~2017-03-22 | CR72 ---
[facility] A Service of [facility] & [facility] RADIOLOGY TEXT RESULTS PATIENT: JOSE G VILLA LOCATION: [facility] : 63 UNIT #: [id number] AGE: [address]: Kaylin Amaya MD SEX: F ORDER DR: [id number] [facility] [address] [facility]. [place], [place] [address] [id number] E MR#: [id number] Acc #: [id number] NAME: JOSE G VILLA : 1965 SEX: F STUDY DATE/TIME: 03/22/2017 1:24 UNIT: [facility] ROOM: STUDY DESCRIPTION: CR Chest Single View Portable Attending Physician: Kaylin Amaya M.D. Ordering Physician: Kaylin Amaya M.D. Primary Care Physician: No Primary Care Physician MEDICAL IMAGING REPORT This report is preliminary unless electronic signature is present EXAM Single view chest INDICATIONS Shortness of air and chest pain. Weakness. FINDINGS Single portable AP view of the chest compared to 03/17/2017. Heart and mediastinal contours are unchanged. There is elevation of the right hemidiaphragm. No focal consolidation. IMPRESSION No interval change Dictated by... Dylan Navarro M.D. THIS IS AN ELECTRONICALLY VERIFIED REPORT Dylan Navarro M.D. at 03/23/2017 12:02 AM BOB/katie TD: 03/22/2017 03:22 JOB #: [id number] MEDICAL IMAGING REPORT Page 1 of 1 COPY
[2017-03-22 02:36] LABS: BASOPHIL% 0.7 % (0-2.5); EOSINOPHIL# 0.1 X10e3 (0-0.7); EOSINOPHIL% 1.1 % (0.0-7.0); HEMATOCRIT 34.4 % (35.0-45.0); HEMOGLOBIN 11.1 gm/dL (12.0-16.0); LYMPHOCYTE# 1.8 X10e3 (1.0-3.5); LYMPHOCYTE% 28.2 % (17.0-45.0); MEAN CELL VOLUME 84.8 FL (83-96); MEAN CORPUSCULAR HEMOGLOBIN 27.4 PG (28-34); MEAN CORPUSCULAR HGB CONC 32.3 g/dL (30-36); MEAN PLATELET VOLUME 8.4 FL (6.5-11.5); MONOCYTE# 0.9 X10e3 (0-1.0); MONOCYTE% 13.6 % (3.0-12.0); NEUTROPHIL# 3.6 X10e3 (1.5-7.1); NEUTROPHIL% 56.4 % (40-75); PLATELET COUNT 225 X10e3 (140-420); RED BLOOD COUNT 4.06 X10e (3.90-5.30); RED CELL DISTRIBUTION WIDTH 17.4 % (11.0-15.5); WHITE BLOOD COUNT 6.4 X10e3 (4.0-10.5)
[2017-03-22 02:40] LABS: DIFF IND NO
[2017-03-22 03:07] LABS: ALBUMIN SERUM 3.4 g/dL (3.5-5.0); BILIRUBIN, DIRECT 0.1 mg/dL (0.0-0.2); BILIRUBIN,INDIRECT 0.5 mg/dL (0.0-0.9); BILIRUBIN,TOTAL 0.6 mg/dL (0.2-2.0); CALCIUM SERUM 8.9 mg/dL (8.4-10.2); CREATININE SERUM 1.8 mg/dL (0.6-1.4); GLOM FILT RATE Estimated 36.9 mL/min (>60); POTASSIUM 3.4 mmol/L (3.5-5.1); PROTEIN TOTAL SERUM 7.2 g/dL (6.0-8.3)
== END 2017-03-22 04:00 | disposition home or self-care (01) ==
LOC: CED
PROVIDERS: Emergency Medicine
DX: E11.65 Type 2 diabetes mellitus with hyperglycemia (principal); I10 Essential (primary) hypertension; K21.9 Gastro-esophageal reflux disease without esophagitis; I50.9 Heart failure, unspecified
CPT/HCPCS: 71010; 80048; 80076; 83880; 85025; 99283

== ENCOUNTER 2017-03-31 21:24 | Inpatient (IN) | payer MEDICARE, OTHER ==
--- NOTE | ~2017-03-31 | DS ---
Unit #: [id number] #: [id number] Patient: JOSE G VILLA [id number] [place] [address] [id number] I MR#: [id number] NAME: JOSE G VILLA. ROOM: 231 Age: 51 Sex: F Admission Date: 04/01/2017 : 1965 Discharge Date: 04/02/2017 Attending Physician: Tan Berger M.D. Primary Care Physician: No Primary Care Physician DISCHARGE SUMMARY DISCHARGE DIAGNOSES 1. Bilateral lower extremity edema. 2. Bilateral lower extremity cellulitis. 3. Type 2 diabetes. 4. Hypertension. 5. Chronic kidney disease. 6. Chronic diastolic heart failure. HOSPITAL COURSE Patient is a 51-year-old female who presented to [facility] emergency department with a complaint of lower extremity swelling and redness. The symptoms had started about a week ago. In the emergency department she underwent venous Dopplers which were negative. The patient was admitted, started on IV antibiotics for her cellulitis. The day following admission her redness has greatly improved and the patient is requesting discharge. She states that her lower extremity edema has improved as well. Patient has been seen by the wound care nurse and had her lower extremities wrapped for compression. She should have MD2U follow up for another round of compression and ultimately GEORGE fink. She is being discharged on oral antibiotics for her cellulitis. DISCHARGE MEDICATIONS 1. Sodium bicarbonate 650 mg p.o. b.i.d. 2. Prozac 60 mg daily. 3. Emend 40 mg daily. 4. Haloperidol 2 mg p.o. b.i.d. 5. Coreg 25 mg p.o. b.i.d. 6. Bisacodyl suppository p.r.n. 7. Docusate sodium per rectum p.r.n. 8. Milk of magnesia p.r.n. 9. MiraLAX p.r.n. 10. Keflex 500 mg p.o. q.i.d. 11. Hydrochlorothiazide 12.5 mg p.o. b.i.d. 12. Lipitor 40 mg p.o. q.h.s. 13. Clonidine 0.1 mg p.o. b.i.d. 14. Protonix 40 mg daily. 15. Zyprexa 5 mg p.o. t.i.d. FOLLOWUP 1. As mentioned patient should have followup with MD2U for changing of her compression hose. 2. She should follow up with her primary care provider at her next Unit #: [id number] #: [id number] Patient: JOSE G VILLA regularly scheduled appointment. Dictated by... Tan Berger M.D. MAXIMILIANO/maryann TD: 04/05/2017 20:58 JOB #: [id number] DISCHARGE SUMMARY Page 1 of 1 X Tan Berger MD X DISCHARGE SUMMARY
--- NOTE | ~2017-03-31 | US84 ---
[id number] [facility]. [place] [address] [facility] [address] [facility]. [place], [place] [address] [id number] I MR#: [id number] Acc #: [id number] NAME: JOSE G VILLA : 1965 SEX: F STUDY DATE/TIME: 03/31/2017 23:03 UNIT: C2A ROOM: 231 STUDY DESCRIPTION: US LE Veins Complete Jesse Stdy Attending Physician: Tan Berger M.D. Ordering Physician: Dean Moncada D.O. Primary Care Physician: Primary Care Physician No MEDICAL IMAGING REPORT This report is preliminary unless electronic signature is present EXAM Bilateral lower extremity venous Doppler INDICATION Bilateral lower extremity edema. Symptoms for the past week. PROCEDURE [place]-scale, color Doppler and spectral imaging deep veins of the right and left leg. COMPARISON 10/29/2016. FINDINGS Deep veins of the right and left leg compress normally, show normal color Doppler and spectral characteristics. IMPRESSION No evidence for DVT in the right or left leg. Dictated by... Benny Rubin M.D. THIS IS AN ELECTRONICALLY VERIFIED REPORT Benny Rubin M.D. at 04/01/2017 10:14 PM CHRISTY/stalin TD: 04/01/2017 09:07 JOB #: [id number] MEDICAL IMAGING REPORT Page 1 of 1 COPY
--- NOTE | ~2017-03-31 | HP ---
Unit #: [id number] #: [id number] Patient: JOSE G VILLA [id number] [address] [address] [id number] I MR#: [id number] NAME: JOSE G VILLA. ROOM: 42491 Age: 51 Sex: F Admission Date: 04/01/2017 : 1965 Attending Physician: Petrona Marvin M.D. Primary Care Physician: No Primary Care Physician HISTORY AND PHYSICAL CHIEF COMPLAINT Pedal edema and right greater than left lower extremity cellulitis. HISTORY This pleasant 51-year-old female with AODM and associated gastroparesis, chronic kidney disease, hypertension, is admitted for pedal edema. The patient states that she was well until about a week ago when she developed increasing pedal edema, now with redness and pain of particularly the right leg. In reviewing her medications, she does take Norvasc. She presented to the emergency department late last evening with a low grade temperature. She was given [place] and Rocephin after negative venous Dopplers of her legs. She was last admitted to this facility 03/17/2017 for gastroparesis, intractable nausea and vomiting, accelerated hypertension and uncontrolled diabetes mellitus. PAST MEDICAL HISTORY 1. Admission 02/20 through 03/09/2017 for pneumonia with acute respiratory failure, ARDS, septic shock requiring resuscitation for V-tach arrest. Patient ruled in for a non-ST elevation PA. Echo ejection fraction 50% to 55% with grade 1 diastolic dysfunction, mild MR, mild to moderate TR, severe LVH. 2. Anemia while on heparin with a negative EGD last month. 3. AODM since 2008, associated with gastroparesis. The patient had a previous gastric stimulator in place which was later removed. Has associated peripheral neuropathy and neurogenic bladder. 4. Chronic kidney disease. 5. Hypertension. 6. COPD. 7. DVT and PE, status post IVC filter placement. 8. History of sarcoidosis. 9. Bipolar disorder. 10. Appendectomy. 11. Hysterectomy. 12. Cholecystectomy. 13. Dilation of the esophagus in the past. 14. Gastric stimulator later removed. ALLERGIES Penicillin, nifedipine, codeine, Reglan. HOME MEDICATIONS 1. Zofran p.r.n. 2. Prozac 60 mg daily. Unit #: [id number] #: [id number] Patient: JOSE G VILLA 3. Sodium bicarb 1300 mg b.i.d. 4. Emend 40 mg daily. 5. Haldol 2 mg t.i.d. 6. Coreg 25 mg b.i.d. 7. Norvasc 10 mg daily. 8. Lipitor 40 mg daily. 9. Clonidine 0.1 mg b.i.d. 10. Levemir 20 units subcu daily. 11. Protonix 40 mg daily. 12. Zyprexa 5 mg t.i.d. FAMILY HISTORY Negative for GI disease. SOCIAL HISTORY The patient lives with her daughter, is a lifelong nonsmoker, does not drink alcohol or use illicit drugs. REVIEW OF SYSTEMS Notable for pedal edema, pain and swelling of the leg, diabetes, gastroparesis, neuropathy, chronic kidney disease, hypertension, COPD, blood clots, sarcoidosis, bipolar disorder and above mentioned surgeries. All other systems were reviewed and are otherwise negative. PHYSICAL EXAMINATION GENERAL APPEARANCE: Pleasant 51-year-old female, currently in no acute distress. VITAL SIGNS: Temperature 99.1, pulse 96, respirations 18, blood pressure 158/92. O2 saturation is 100% on room air. HEENT: Eyes PERRLA. Extraocular muscles are intact. Pharynx is benign, edentulous. NECK: Supple without adenopathy or thyromegaly. CHEST: Clear. CARDIAC: Normal S1 and S2. Soft systolic murmur. ABDOMEN: Bowel sounds are present. No hepatosplenomegaly, tenderness or masses. EXTREMITIES: Notable for right greater than left lower extremity edema with erythema of the distal lower extremities, right more so than left. These areas are also tender. Diminished pedal pulses. No ulcerations on the feet. No tinea pedis. NEUROLOGIC: The patient is awake, alert, oriented. Cranial nerves are intact. Equal strength throughout. DIAGNOSTIC STUDIES LABORATORY: Hematocrit is 36. Normal white count and platelet count. Normal coags. SMA-12 - glucose 382, creatinine 2.1 which appears to be stable. Sodium 134, chloride 99, protein is 8.9, alkaline phos. 264. Troponin is negative. BNP is normal. IMAGING: Dopplers of the lower extremities are negative for DVTs. ASSESSMENT 1. Right greater than left pedal edema with what appears to be distal lower extremity cellulitis, right more so than the left. 2. Adult onset diabetes mellitus with peripheral neuropathy and Unit #: [id number] #: [id number] Patient: JOSE G VILLA gastroparesis. 3. Hypertension. 4. Chronic kidney disease. 5. History of pulmonary embolism/deep venous thrombosis, status post inferior vena cava filter placement. 6. History of sarcoidosis. 7. Bipolar disorder. PLANS 1. IV Ancef. 2. Will discontinue Norvasc at this time as this may be causing the patient's pedal edema. Will increase her clonidine and add a tiny dose of hydrochlorothiazide monitoring her kidney function carefully. 3. DVT prophylaxis. Dictated by Petrona Marvin M.D. AML/df TD: 04/01/2017 05:48 JOB #: [id number] HISTORY AND PHYSICAL Page 1 of 1 X Petrona Marvin MD X HISTORY AND PHYSICAL
[2017-03-31 23:49] LABS: ALBUMIN SERUM 4.3 g/dL (3.5-5.0); BILIRUBIN, DIRECT 0.1 mg/dL (0.0-0.2); BILIRUBIN,INDIRECT 0.5 mg/dL (0.0-0.9); BILIRUBIN,TOTAL 0.6 mg/dL (0.2-2.0); BUN/CREATININE RATIO 10.95; CALCIUM SERUM 9.7 mg/dL (8.4-10.2); CREATININE SERUM 2.1 mg/dL (0.6-1.4); GLOM FILT RATE Estimated 30.6 mL/min (>60); POTASSIUM 3.5 mmol/L (3.5-5.1); PROTEIN TOTAL SERUM 8.9 g/dL (6.0-8.3)
[2017-04-01 00:18] LABS: BASOPHIL# 0.1 X10e3 (0-0.3); BASOPHIL% 0.7 % (0-2.5); EOSINOPHIL# 0.1 X10e3 (0-0.7); EOSINOPHIL% 1.3 % (0.0-7.0); HEMATOCRIT 36.3 % (35.0-45.0); LYMPHOCYTE# 2.5 X10e3 (1.0-3.5); LYMPHOCYTE% 27.7 % (17.0-45.0); MEAN CELL VOLUME 83.3 FL (83-96); MEAN CORPUSCULAR HEMOGLOBIN 27.6 PG (28-34); MEAN CORPUSCULAR HGB CONC 33.2 g/dL (30-36); MEAN PLATELET VOLUME 7.4 FL (6.5-11.5); MONOCYTE% 10.9 % (3.0-12.0); NEUTROPHIL# 5.4 X10e3 (1.5-7.1); NEUTROPHIL% 59.4 % (40-75); PLATELET COUNT 341 X10e3 (140-420); RED BLOOD COUNT 4.36 X10e (3.90-5.30); RED CELL DISTRIBUTION WIDTH 17.5 % (11.0-15.5); WHITE BLOOD COUNT 9.1 X10e3 (4.0-10.5)
[2017-04-01 00:27] LABS: DIFF IND NO
[2017-04-01 00:29] LABS: PROTHROMBIN TIME (PATIENT) 10.5 SECONDS (9.6-11.5)
[2017-04-01 00:35] LABS: PARTIAL THROMBOPLASTIN TIME 20.1 SECONDS (23.5-31.3)
[2017-04-01] MEDS ORDERED: AMLODIPINE BESY10 MG PO (02:17)
[2017-04-01] MEDS ORDERED: PROTONIX PO (02:17)
[2017-04-01] MEDS ORDERED: PROZAC40 MG PO (02:17)
[2017-04-01] MEDS ORDERED: EMEND40 MG PO (02:17)
[2017-04-01] MEDS ORDERED: CARVEDILOL25 MG PO (02:18)
[2017-04-01] MEDS ORDERED: ZYPREXA PO (02:18)
[2017-04-01] MEDS ORDERED: HALOPERIDOL2 MG PO (02:18)
[2017-04-01] MEDS ORDERED: ANTACID650 MG PO (02:18)
[2017-04-01] MEDS ORDERED: LIPITOR40 MG PO (02:19)
[2017-04-01] MEDS ORDERED: CATAPRES0.1 MG PO (02:19)
[2017-04-01] MEDS ORDERED: MILK OF MAGNESIA PO (02:19)
[2017-04-01] MEDS ORDERED: BISACODYL EC5 M1 PO (02:20)
[2017-04-01] MEDS ORDERED: ENEMEEZ283 MG/5 M PR (02:20)
[2017-04-01] MEDS ORDERED: DULCOLAX10 MG PR (02:20)
[2017-04-01] MEDS ORDERED: GLUCAGEN1 MG PO (02:21)
[2017-04-01] MEDS ORDERED: MIRALAX17 GM PO (02:21)
[2017-04-01 07:22] LABS: BASOPHIL% 0.6 % (0-2.5); EOSINOPHIL# 0.1 X10e3 (0-0.7); EOSINOPHIL% 1.1 % (0.0-7.0); HEMATOCRIT 33.9 % (35.0-45.0); LYMPHOCYTE# 1.7 X10e3 (1.0-3.5); LYMPHOCYTE% 23.5 % (17.0-45.0); MEAN CORPUSCULAR HEMOGLOBIN 27.3 PG (28-34); MEAN CORPUSCULAR HGB CONC 32.5 g/dL (30-36); MEAN PLATELET VOLUME 7.4 FL (6.5-11.5); MONOCYTE# 0.8 X10e3 (0-1.0); MONOCYTE% 11.4 % (3.0-12.0); NEUTROPHIL# 4.7 X10e3 (1.5-7.1); NEUTROPHIL% 63.4 % (40-75); PLATELET COUNT 304 X10e3 (140-420); RED BLOOD COUNT 4.04 X10e (3.90-5.30); RED CELL DISTRIBUTION WIDTH 17.3 % (11.0-15.5); WHITE BLOOD COUNT 7.4 X10e3 (4.0-10.5)
[2017-04-01 07:23] LABS: DIFF IND NO
[2017-04-01 07:45] LABS: BUN/CREATININE RATIO 11.87; CALCIUM SERUM 8.9 mg/dL (8.4-10.2); CREATININE SERUM 1.6 mg/dL (0.6-1.4); GLOM FILT RATE Estimated 42.5 mL/min (>60); POTASSIUM 3.2 mmol/L (3.5-5.1)
[2017-04-02 14:08] LABS: BUN/CREATININE RATIO 10.62; CALCIUM SERUM 8.7 mg/dL (8.4-10.2); CREATININE SERUM 1.6 mg/dL (0.6-1.4); GLOM FILT RATE Estimated 42.5 mL/min (>60)
[2017-04-02] MEDS ORDERED: KEFLEX500 M1 PO (19:37)
[2017-04-02] MEDS ORDERED: HYDROCHLOROTH12.5 M1 PO (19:38)
== END 2017-04-02 20:08 | disposition home or self-care (01) | DRG 603 ==
LOC: CED 21:24 → CEDOF 04-01 04:00 → CED 04-01 04:17 → CEDOF 04-01 04:17 → C2A 04-01 04:17 → CEDOF 04-01 07:34 → C2A 04-01 07:42 → CEDOF 04-01 07:42 → C2A 04-02 20:08
PROVIDERS: Emergency Medicine; Internal Medicine
DX: L03.116 Cellulitis of left lower limb (principal); E11.22 Type 2 diabetes mellitus with diabetic chronic kidney disease; N17.9 Acute kidney failure, unspecified; K31.84 Gastroparesis; N31.9 Neuromuscular dysfunction of bladder, unspecified; I13.0 Hypertensive heart and chronic kidney disease with heart failure and stage 1 through stage 4 chronic kidney disease, or unspecified chronic kidney disease; I50.32 Chronic diastolic (congestive) heart failure; N18.3 Chronic kidney disease, stage 3 (moderate); L03.115 Cellulitis of right lower limb; D64.9 Anemia, unspecified; E11.43 Type 2 diabetes mellitus with diabetic autonomic (poly)neuropathy; Z79.84 Long term (current) use of oral hypoglycemic drugs; E11.42 Type 2 diabetes mellitus with diabetic polyneuropathy; J44.9 Chronic obstructive pulmonary disease, unspecified; Z86.718 Personal history of other venous thrombosis and embolism; Z86.711 Personal history of pulmonary embolism; F31.9 Bipolar disorder, unspecified; Z90.710 Acquired absence of both cervix and uterus; Z90.49 Acquired absence of other specified parts of digestive tract; Z88.0 Allergy status to penicillin; Z79.4 Long term (current) use of insulin
CPT/HCPCS: 36415; 80048; 80076; 82947; 83880; 84484; 85025; 85610; 85730; 93970; 96365; 99284; J0690; J0696; J1650; J1815; J2405